=== PATIENT | female | born 1950 | race Caucasian/White ===

== ENCOUNTER → 2016-07-19 | Outpatient (CLI) | payer MEDICARE ==
--- NOTE | 2016-07-20 07:59 | MM ---
Reason for exam: additional evaluation requested from prior study. Last mammogram was performed 1 year and 1 month ago. History: Patient is postmenopausal. Family history of breast cancer in maternal aunt at age 84. Benign left US cyst aspiration of the left breast, November 25, 2006. Benign US left guided mammotome of the left breast, November 25, 2006. Benign US left guided mammotome of the left breast, November 25, 2006. Ultrasound-guided cyst aspiration of the right breast, April 26, 2000. Benign ultrasound-guided core biopsy of the right breast, April 26, 2000. Benign cyst aspiration of the right breast, March 25, 1998. Benign excisional biopsy of the right breast, March 25, 1998. Cyst aspiration of the left breast. 3 cyst aspirations of the right breast. Core biopsy of the right breast. 2 excisional biopsies of the right breast. Took hormonal contraceptives for 10 months beginning at age 17. Took estrogen for 17 years beginning at age 45. Physical Findings: Nurse did not find any significant physical abnormalities on exam. MG 3D Diag Mammo W/Cad BRENDEN Bilateral CC and MLO view(s) were taken. Prior study comparison: June 28, 2015, bilateral MG 3d screening mammo w/cad. March 08, 2014, bilateral MG diagnostic mammo w CAD BRENDEN. The breast tissue is heterogeneously dense. This may lower the sensitivity of mammography. Finding: There are typically benign round calcifications. There is no discrete abnormality. No significant changes in finding since June 28, 2015 and March 08, 2014. These results were verbally communicated with the patient and result sheet given to the patient on 07/19/16. ASSESSMENT: Benign, BI-RAD 2 RECOMMENDATION: Routine screening mammogram of both breasts in 1 year.
== END | disposition home or self-care (01) ==
LOC: RADMAMWWP 13:47
PROVIDERS: ATTEND Surgery
DX: R92.8 Other abnormal and inconclusive findings on diagnostic imaging of breast (principal)
CPT/HCPCS: 77051 ×2; G0204; G0279

== ENCOUNTER → 2016-12-04 | Outpatient (CLI) | payer MEDICARE ==
--- NOTE | 2016-12-04 13:19 | XR ---
EXAMINATION TYPE: XR sacroiliac joint comp BILAT DATE OF EXAM: 12/04/2016 1:12 PM COMPARISON: NONE HISTORY: Pain TECHNIQUE: 3 views of the SI joints were obtained bilaterally FINDINGS: Previous surgery involving the lumbosacral joint noted. Sacrum appears intact. There is sub tle sclerosis involving the right SI joint. No erosive changes. Joint space appears. Preserved. Arthr opathy of the hip joints noted. IMPRESSION: 1. Mild right sacroiliitis. 2. Bilateral hip arthropathy
--- NOTE | 2016-12-04 13:25 | XR ---
EXAMINATION TYPE: XR Hip Bilateral Complete DATE OF EXAM: 12/04/2016 1:13 PM COMPARISON: NONE HISTORY: Pain TECHNIQUE: 2 views submitted FINDINGS: There is no evidence of erosive change or acute fracture. Hypertrophic change of the acetabulum is seen bilaterally either contrast or calcifications are overs een the pubic symphysis. Correlate clinically. Soft tissue ossification adjacent to the greater trochanter of the right hip. Mild concentric narrowi ng of the joint spaces compatible with arthritic change. IMPRESSION: 1. Mild arthritic change with findings suggestive of femoral acetabular impingement. Correlate clinic ally..
--- NOTE | 2016-12-04 13:27 | XR ---
EXAMINATION TYPE: XR pelvis AP view DATE OF EXAM: 12/04/2016 1:12 PM COMPARISON: NONE HISTORY: Pain The osseous structures are intact and the joint spaces are preserved. No acute fracture is seen. Pos tsurgical change and degenerative change lower lumbar spine. 3 subtle sclerosis adjacent to the iliac portion of the right SI joint. Joint spaces appear preserved with no erosive change. Arthropathy of the shoulders noted. Either calcification or contrast seen overlying the pubic symphys is. Arthropathy of the hips noted. IMPRESSION: 1. Mild right sacroiliitis 2. Arthropathy of the hip joints.
== END | disposition home or self-care (01) ==
LOC: RADXRMAIN 12:42
PROVIDERS: ATTEND Psychiatry & Neurology Pain Medicine
DX: M16.0 Bilateral primary osteoarthritis of hip (principal); M46.1 Sacroiliitis, not elsewhere classified
CPT/HCPCS: 72170; 72202; 73521

== ENCOUNTER → 2016-12-21 | Outpatient (CLI) | payer MEDICARE ==
[2016-12-21 09:17] LABS: Blood Urea Nitrogen 13 mg/dL (7-17); Non-African American GFR(MDRD) >60 (>60 ml/min/1.73 sqM)
--- NOTE | 2016-12-21 11:47 | MR ---
MR tspine/lspine wo/w con tsp pain, lumbago MultiHance Multiplanar, multiecho imaging of the lumbar spine was obtained with and without intravenous administ ration of 17 cc of MultiHance on a 3 Viola magnet. REFERENCE:None. FINDINGS: THORACIC SPINE: Paraspinal soft tissues are normal. There is a mild levoscoliosis with its apex at the thoracolumbar junction. Vertebral body height and alignment are maintained. Cord signal is maintained. There is a tiny left paracentral protrusion at T5-6 mildly deforming the thecal sac without cord cont act. There is a diffuse disc displacement at T7-T8 deforming the thecal sac without cord contact. There is a left paracentral disc displacement at T8-9 mildly deforming the thecal sac without cord co ntact. There is a bilobed disc displacement at T9-10 deforming the thecal sac without cord contact. No other significant compressive discopathy is seen. Intervertebral foramina appear well maintained. IMPRESSION: 1. MILD, DIFFUSE DEGENERATIVE DISC DISEASE. 2. GENTLE LEVOSCOLIOSIS. 3. NO SIGNIFICANT COMPRESSIVE DISCOPATHY OR NEURAL COMPRESSION. LUMBAR SPINE: There are parapelvic cysts present bilaterally. There has been a right interpedicular fusion at L5-S1. There appears to have been a previous interped icular screw on the left at L5. This is no longer present. There is a grade 2 spondylolisthesis of L5 on S1. Alignment is otherwise maintained. Vertebral body h eight is maintained. There is a 2.8 x 5.4 cm right sided pseudomeningocele. This shows no abnormal enhancement. The conus ends normally at the level of the superior endplate of L1. At T12-L1, there are mild hypertrophic changes in the facets. At L1-2, there are mild hypertrophic changes in the facets. There is mild trefoiling of the thecal sa c. At L2-3, there is disc space loss and disc desiccation. Intervertebral foramina appear well maintaine d. There is a diffuse disc displacement. There are hypertrophic changes in the facets. There is mild trefoiling of the thecal sac. At L3-4, there is disc space loss and disc desiccation. Intervertebral foramina appear reasonably wel l-maintained. The right facet is absent. There is hypertrophic changes in the left facet. There is a mild, diffuse disc displacement. At L4-5, there is disc space loss and disc desiccation. There is an interpedicular screw present on t he right. There is no significant compressive discopathy. Intervertebral foramina. Reasonably well-ma intained. At L5-S1, there is a grade 2 spondylolisthesis of L5 on S1. There is a prominent pseudodisc. Interver tebral foramina are difficult to assess on the right. There appears to be some mild narrowing on the left. IMPRESSION: 1. POSTSURGICAL CHANGE. 2. 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 3. DIFFUSE DEGENERATIVE DISC DISEASE AND FACET ARTHROPATHY. 4. GRADE 2 SPONDYLOLISTHESIS OF L5 ON S1.
== END | disposition home or self-care (01) ==
LOC: RADMRIMAIN 09:12
PROVIDERS: ATTEND Psychiatry & Neurology Pain Medicine
DX: M51.35 Other intervertebral disc degeneration, thoracolumbar region (principal); M43.17 Spondylolisthesis, lumbosacral region; M46.86 Other specified inflammatory spondylopathies, lumbar region; M41.84 Other forms of scoliosis, thoracic region; G96.19 Other disorders of meninges, not elsewhere classified; Z98.890 Other specified postprocedural states
CPT/HCPCS: 82565; 84520; 72157; 72158; A9577

== ENCOUNTER → 2017-02-20 | Outpatient (CLI) | payer MEDICARE ==
--- NOTE | 2017-02-20 09:09 | CT ---
EXAMINATION TYPE: CT lumbar spine wo con DATE OF EXAM: 02/20/2017 COMPARISON: MR lumbar spine 12/21/2016 HISTORY: Lumbar stenosis, M41.06 CT DLP: 870.1 mGycm Automated exposure control for dose reduction was used. An unenhanced CT of the lumbar spine was performed. Bone and soft tissue window settings are submitt ed as well as coronal and sagittal reconstructions. FINDINGS: Alignment is stable, there is a dextroscoliosis as noted on prior lumbar MRI. Posterior fusion change is noted L5-S1 with unilateral screws to the right of midline, there is laminectomy change. Fluid co llection is present at the laminectomy site at the lumbosacral junction to the right of midline as no ameena on MRI. There is multilevel spondylosis, loss of disc height the intervertebral levels, associate d vacuum phenomenon also present at L3-4, L2-3. L1-L2: Facet arthropathy changes present. No significant central stenosis or foraminal encroachment. No sizable disc herniation. L2-L3: Facet arthropathy changes present. No significant foraminal encroachment or central stenosis. L3-L4: Minimal circumferential posterior disc bulge causes only slight anterior mass effect on the th ecal sac. No significant foraminal encroachment or central stenosis. Postop changes are noted in the posterior elements.. L4-L5: Loss of disc height and signal. No significant central stenosis. No significant foraminal encr oachment. Postop change noted. L5-S1: Postop changes are present. Minimal anterolisthesis grade 1 L5-S1. There may be some right-yary ed foraminal encroachment. Artifact obscures detail. IMPRESSION: Similar to lumbar MRI. Degenerative disc disease, postop changes, postop fluid collection likely repr esents seroma. Scoliosis. Foraminal encroachment suspected L5-S1 on the right. See report lumbar MRI 12/21/2016.
== END | disposition home or self-care (01) ==
LOC: RADCTMAIN 08:07
PROVIDERS: ATTEND Neurological Surgery
DX: M51.37 Other intervertebral disc degeneration, lumbosacral region (principal); M41.87 Other forms of scoliosis, lumbosacral region; Z98.890 Other specified postprocedural states
CPT/HCPCS: 72131

== ENCOUNTER → 2017-08-13 | Outpatient (CLI) | payer MEDICARE ==
--- NOTE | 2017-08-13 15:46 | MR ---
EXAMINATION TYPE: MR cervical spine wo con DATE OF EXAM: 08/13/2017 COMPARISON: NONE HISTORY: Cervicalgia, gray TECHNIQUE: Multiplanar, multisequence images of the cervical spine were acquired. FINDINGS: Vertebral bodies of the cervical spine maintains normal vertebral body height and alignment . Bone marrow signal is within normal limits other than small T2/T1 hyperintense vertebral body heman giomas of the lower cervical spine and upper thoracic spine. Cervical cord is of unremarkable signal. C2-C3: There is disc desiccation without evidence of spinal canal stenosis or neural foraminal narrow ing. No focal herniation. C3-C4: Small central posterior disc osteophyte complex is seen without significant spinal canal steno sis. No neural foraminal narrowing. C4-C5: Left eccentric disc bulge create mild left neural foraminal narrowing and mild spinal canal st enosis narrowing the ventral subarachnoid space. Right neuroforamen is patent. C5-C6: Similarly to C4-C5 a left eccentric disc bulge create mild left neural foraminal narrowing and mild spinal canal stenosis narrowing the ventral subarachnoid space. Right neuroforamen is patent. C6-C7: Small central disc herniation is seen narrowing the ventral subarachnoid space and creating mi ld spinal canal stenosis. Uncovertebral hypertrophy creates moderate left neural foraminal narrowing. Right neuroforamen is patent. C7-T1: No evidence for degenerative disc disease. No disc bulge/herniation or protrusion. No Canal stenosis. Foramina are patent bilaterally. IMPRESSION: 1. Small central disc herniation at C6-C7 resulting in mild spinal canal stenosis. Uncovertebral hype rtrophy on the left at this level creates moderate left neural foraminal narrowing. 2. Moderate multilevel degenerative disc disease resulting in mild spinal canal stenosis at C4-C5, C5 -C6, and C6-C7 as described above. 3. No evidence of cervical spine vertebral body height loss or malalignment.
== END | disposition home or self-care (01) ==
LOC: RADMRIMAIN 13:03
PROVIDERS: ATTEND Psychiatry & Neurology Neurology
DX: M50.223 Other cervical disc displacement at C6-C7 level (principal); M48.02 Spinal stenosis, cervical region
CPT/HCPCS: 72141

== ENCOUNTER → 2017-09-04 | Outpatient (CLI) | payer MEDICARE ==
--- NOTE | 2017-09-04 14:02 | MM ---
Reason for exam: additional evaluation requested from prior study. Last mammogram was performed 1 year and 2 months ago. History: Patient is postmenopausal. Family history of breast cancer in maternal aunt at age 84. Benign left US cyst aspiration of the left breast, November 25, 2006. Benign US left guided mammotome of the left breast, November 25, 2006. Benign US left guided mammotome of the left breast, November 25, 2006. Ultrasound-guided cyst aspiration of the right breast, April 26, 2000. Benign ultrasound-guided core biopsy of the right breast, April 26, 2000. Benign cyst aspiration of the right breast, March 25, 1998. Benign excisional biopsy of the right breast, March 25, 1998. Cyst aspiration of the left breast. 3 cyst aspirations of the right breast. Core biopsy of the right breast. 2 excisional biopsies of the right breast. Took hormonal contraceptives for 10 months beginning at age 17. Took estrogen for 17 years beginning at age 45. Physical Findings: Nurse did not find any significant physical abnormalities on exam. MG 3D Diag Mammo W/Cad BRENDEN Bilateral CC and MLO view(s) were taken. Prior study comparison: July 19, 2016, bilateral MG 3d diag mammo w/cad BRENDEN. June 28, 2015, bilateral MG 3d screening mammo w/cad. The breast tissue is heterogeneously dense. This may lower the sensitivity of mammography. Previous mammotome biopsy in the left breast x 2. There is chronic nodularity in the left breast. These results were verbally communicated with the patient and result sheet given to the patient on 09/04/17. ASSESSMENT: Benign, BI-RAD 2 RECOMMENDATION: Routine screening mammogram of both breasts in 1 year.
== END | disposition home or self-care (01) ==
LOC: RADMAMWWP 12:53
PROVIDERS: ATTEND Surgery
DX: R92.8 Other abnormal and inconclusive findings on diagnostic imaging of breast (principal)
CPT/HCPCS: 77066; G0279

== ENCOUNTER → 2018-05-01 | Outpatient (CLI) | payer MEDICARE ==
--- NOTE | 2018-05-01 14:44 | XR ---
EXAMINATION TYPE: XR chest 2V DATE OF EXAM: 05/01/2018 COMPARISON: NONE TECHNIQUE: PA and lateral views submitted. HISTORY: brow ptosis FINDINGS: The lungs are clear and there is no pneumothorax, pleural effusion, or focal pneumonia. Postsurgica l change right shoulder. Arthropathy AC joints bilaterally. Atherosclerotic change aorta. No overt fa ilure. IMPRESSION: 1. No acute process.
== END | disposition home or self-care (01) ==
LOC: RADXRMAIN 14:04
PROVIDERS: ATTEND Internal Medicine Geriatric Medicine
DX: H57.819 Brow ptosis, unspecified (principal)
CPT/HCPCS: 71046

== ENCOUNTER → 2018-09-16 | Outpatient (CLI) | payer MEDICARE | LOC: LABWHC1 14:31 | PROVIDERS: ATTEND Nurse Practitioner Adult Health | DX: R00.2 Palpitations (principal) | CPT/HCPCS: 36415; 84443; 84481 ==

== ENCOUNTER 2018-11-20 07:59 | Day surgery (SDC) | payer MEDICARE ==
[2018-11-19 09:17] VITALS: BMI 29.2
[~2018-11-20 07:59] MED LIST: SODIUM CHLORIDE 0.9% 1,000 ML IV SCH; ceFAZolin IN SWFI 2 GM/20 ML SYRINGE IVP ONE
[2018-11-20 08:26] VITALS: TEMP 97.9
[2018-11-20] MEDS ORDERED: LIDOCAINE 1% INJ 10MG/ML (20 ML MDV) ONE (09:22)
[2018-11-20] MEDS ORDERED: MIDAZOLAM (PF) 2 MG/2 ML VIAL IVP ONE (09:32)
[2018-11-20] MEDS ORDERED: LIDOCAINE 1% INJ 10MG/ML (20 ML MDV) SQ ONE (09:36)
--- NOTE | 2018-11-20 09:51 | P.PCN ---
Preoperative Diagnosis: Loop monitor implant Primary physicians: Dr. Cheung Network Engineer: Dr. Sepulveda Indication: Recurrent palpitations Patient was brought to the EP lab in a fasting state. Written informed consent was obtained prior to the procedure. The left pectoral area was prepped and draped per protocol. Intravenous antibiotic was administered preoperatively. A subcutaneous Loop monitor was implanted successfully and the wound was closed per protocol. The device was programmed to detect significant jeanne- arrhythmic and tachy-arrhythmic events, per protocol. Device and programming details: Antionette fib diagnosis and management Patient underwent EP procedure under conscious sedation/moderate sedation, monitoring of the level of consciousness and physiologic parameters including but not limited to vital signs and oxygenation. Patient tolerated the procedure well without any acute complications. Start time: 0935 Stop time: 944 Condition: stable
--- NOTE | 2018-11-20 09:52 | P.PRLE ---
RE: Na Byers Dear Dr. kelley Mrs. Byers underwent implantation of a loop monitor for evaluation of her palpitations and and management of atrial fibrillation Her medications at this time remain unchanged and she will continue to follow with you and Dr. Sepulveda as before and will see me on a when necessary basis if she has any sustained arrhythmias Thank you for entrusting me with the care of the patient Warm regards Sincerely Tomás Miles
[2018-11-20 10:11] VITALS: BP 150/79; PULSE 64; RESP 18
== END 2018-11-20 10:49 | disposition home or self-care (01) ==
LOC: CATHEP 07:59
PROVIDERS: ATTEND Internal Medicine Clinical Cardiac Electrophysiology
DX: I48.91 Unspecified atrial fibrillation (principal); I10 Essential (primary) hypertension; Z79.82 Long term (current) use of aspirin; Z79.890 Hormone replacement therapy; Z79.899 Other long term (current) drug therapy; Z88.5 Allergy status to narcotic agent; Z88.8 Allergy status to other drugs, medicaments and biological substances; Z91.041 Radiographic dye allergy status
CPT/HCPCS: 33285; C1764; J2001; J0690; J2250

== ENCOUNTER → 2018-12-25 | Outpatient (CLI) | payer MEDICARE ==
--- NOTE | 2018-12-25 17:46 | CONS ---
CONSULTATION DATE OF SERVICE: 12/25/2018 This patient is a 68-year-old lady who has been evaluated in Sleep Center for possible obstructive sleep apnea-hypopnea syndrome. HISTORY OF PRESENT ILLNESS/SLEEP-WAKE EVALUATION: Patient's usual sleep schedule is from around 9 p.m. until 5 or 6 a.m. Usually no problems with falling asleep, although she reads in the bedroom. She sleeps usually on the right side with loud snoring and episodes of palpitations during sleep. She may wake up once with nocturia. No history of hypnagogic hallucinations, sleep paralysis or cataplexy. She may take a nap any time, and usually does not feel refreshed after a nap. Does not see dreams during naps. [place] Sleepiness Scale is significantly increased at 17, including sleepiness while driving the car and being stopped at traffic lights. PAST MEDICAL HISTORY: Past medical history is positive for: 1. Atrial fibrillation for many years. 2. Hypothyroidism. 3. Back problems. 4. Hypertension. 5. Acid reflux. 6. Depression. 7. Right shoulder problems. 8. Mitral valve prolapse. PAST SURGICAL HISTORY: 1. Back surgery at L4 level. 2. Several cardioversions in the past for atrial fibrillation. 3. Partial hysterectomy. 4. Five surgeries on the right shoulder. 5. Right shoulder implant. MEDICATIONS: 1. Toprol-XL. 2. Baby aspirin. 3. Nexium. 4. Vitamins. 5. Zantac. 6. Elavil. 7. OxyContin. 8. Xanax. SOCIAL HISTORY: Negative for smoking or using alcohol at the present time. FAMILY HISTORY: Hypertension, angina, heart problems, arthritis, sinus problems, snoring, tuberculosis, pneumoniae, headaches, cancer, thyroid problems. REVIEW OF SYSTEMS: Awakenings from sleep, sleepiness during the day, palpitations. PHYSICAL EXAMINATION: GENERAL: A pleasant lady without distress. VITAL SIGNS: BP 131/57, HR 70, RR 16, height 5 feet 4 inches, weight 178 pounds. Body mass index 30.5, temperature 97.6, oxygen saturation at room air 98%. HEENT: PERRLA, EOMI. Evaluation of oropharynx showed tongue protrudes midline. Extremely low position of soft palate. Mallampati IV. Nose slightly asymmetric. Some restriction of nasal breathing. Retrognathia of 3 mm. NECK: Supple. No JVD. Thyroid is not palpable. LUNGS: Clear to percussion and to auscultation. Good air exchange. No wheezing or rhonchi. HEART: Irregular heart tones. ABDOMEN: Slightly obese. EXTREMITIES: No clubbing or cyanosis. MARINE ENGINEER CPVEC: Awake, alert, and oriented X3. Cranial nerves 2 to 7 intact. There is no fasciculation or atrophy. noted. No focal deficits observed. IMPRESSION: 1. Snoring, witnessed episodes of stopped breathing, extremely low position of soft palate, Mallampati IV, significant excessive daytime sleepiness, Palmer sleepiness scale 17; retrognathia 3 mm; obstructive sleep apnea/hypopnea syndrome. 2. Hypertension. 3. Atrial fibrillation. 4. History of mitral valve prolapse. 5. Hypothyroidism, on thyroid supplement. 6. History of depression. 7. Acid reflux. 8. History of right shoulder problems, status post multiple surgeries. 9. History of back problems, status post surgery in the level of L4. 10.History of panic attacks. PLAN: 1. Polysomnography for evaluation of patient's breathing during sleep. 2. CPAP/BiPAP titration if sleep study confirms obstructive sleep apnea-hypopnea syndrome. 3. Preferable position during sleep on the side. 4. No driving if patient feels any sleepiness. 5. I will see patient for follow up visit to explain results of testing and following plan. Thank you very much for referring this patient for consultation. Sincerely, Booker Alvarenga MD, PhD, FAASM Diplomat of [employer] [employer] [employer] Program Manufacturing Leader of [facility] [place] MMODL / MILYN: [id number] /
== END | disposition home or self-care (01) ==
LOC: SLEEP 15:11
PROVIDERS: ATTEND Internal Medicine
DX: G47.33 Obstructive sleep apnea (adult) (pediatric) (principal); I10 Essential (primary) hypertension; I48.91 Unspecified atrial fibrillation; E03.9 Hypothyroidism, unspecified; K21.9 Gastro-esophageal reflux disease without esophagitis; Z86.79 Personal history of other diseases of the circulatory system; Z86.59 Personal history of other mental and behavioral disorders; Z87.39 Personal history of other diseases of the musculoskeletal system and connective tissue; Z98.890 Other specified postprocedural states; Z79.82 Long term (current) use of aspirin; Z79.899 Other long term (current) drug therapy
CPT/HCPCS: 99211

== ENCOUNTER → 2019-04-16 | Outpatient (CLI) | payer MEDICARE ==
--- NOTE | 2019-04-16 14:13 | PN ---
PROGRESS NOTE DATE OF SERVICE: 04/16/2019 A 68-year-old lady who has been followed in the Sleep Center for treatment of obstructive sleep apnea-hypopnea syndrome. Recently patient had a polysomnogram which showed severe sleep apnea. Subsequently, patient had CPAP titration and was started on treatment with CPAP. Today is her first visit after she was started on treatment with CPAP. The patient has difficulties to use CPAP equipment secondary to mask fitting and possibly pressure. [place] Sleepiness Scale today is 19. MEDICATIONS: Toprol, Nexium, Zantac, Elavil, OxyContin, Xanax. I checked the patient's CPAP unit, CPAP pressure is 10 cm of water, usage 5 nights out of 73 nights and 3 nights for more than 4 hours with average usage 4.6 hours. Leak is 19 L/minute, which is very high apnea-hypopnea index only 3.0, which is absolutely normal. PHYSICAL EXAM: Patient in no distress. BP 146/67, HR 74, RR 16, weight 173.6, temperature 97.3, oxygen saturation at room air 98% on room air is oropharynx low position of soft palate. Mallampati 4 abdomen slightly obese heart S1, and to auscultation. IMPRESSION: 1. Severe obstructive sleep apnea-hypopnea syndrome. Presently, patient has difficulties with the usage of CPAP, reading from CPAP when she used the machine showed normalization of her respiration. 2. Atrial fibrillation. 3. Acid reflux. 4. Hypertension. 5. Hypothyroidism. 6. History of depression. 7. History of mitral valve prolapse. 8. History of panic attacks. PLAN: 1. We will try to feed the patient with possibly different type of mask. 2. Patient should continue to use CPAP equipment every night for the whole night. 3. Sleep hygiene with regular time in bed for at least 7=1/2hours. 4. No driving if feeling sleepiness. Thank you very much for allowing me to participate in the management of your patient. Sincerely, Booker Alvarenga MD, PhD, FAASM Diplomat of [employer] Hydraulic Press Operator of [facility] [place] MMODL / MILYN: [id number] /
== END | disposition home or self-care (01) ==
LOC: SLEEP 13:09
PROVIDERS: ATTEND Internal Medicine
DX: G47.33 Obstructive sleep apnea (adult) (pediatric) (principal); I48.91 Unspecified atrial fibrillation; I10 Essential (primary) hypertension; E03.9 Hypothyroidism, unspecified; K21.9 Gastro-esophageal reflux disease without esophagitis; Z86.59 Personal history of other mental and behavioral disorders; Z86.79 Personal history of other diseases of the circulatory system; Z79.891 Long term (current) use of opiate analgesic; Z79.899 Other long term (current) drug therapy

== ENCOUNTER → 2019-05-14 | Outpatient (CLI) | payer MEDICARE ==
--- NOTE | 2019-05-14 20:48 | PN ---
PROGRESS NOTE DATE OF SERVICE: 05/14/2019 This patient is a 68-year-old lady who has been followed in Sleep Center for treatment of obstructive sleep apnea-hypopnea syndrome. At present the patient is using her CPAP equipment practically every night, and she feels better with the machine. She sleeps better and feels better during the day. [place] Sleepiness Scale today, though, is still increased at 17. She still continues to feel some sleepiness during the day. I checked her CPAP unit. CPAP pressure is 10 cm of water, RAMP 30 minutes. Usage for the last month, according to the machine, is / nights, and night for more than 4 hours. Average usage is 6.3 hours. Leak is high, 62 L/minute. At the same time, apnea-hypopnea index is totally normal, only 1.0. MEDICATIONS: 1. Toprol. 2. Nexium. 3. Zantac. 4. Elavil. 5. OxyContin. 6. Xanax. PHYSICAL EXAMINATION: GENERAL: A pleasant patient in no distress. VITAL SIGNS: BP 148/83, HR 64, RR 14, weight 177.6, temperature 97.3, oxygen saturation at room air 97%. HEENT: PERRLA, EOMI. Evaluation of oropharynx showed tongue protrudes midline. Extremely low position of soft palate. Mallampati IV. NECK: Supple. No JVD. Thyroid is not palpable. LUNGS: Clear to percussion and to auscultation. Good air exchange. No wheezing or rhonchi. HEART: S1, S2 regular. No murmurs, gallops or rubs. ABDOMEN: Slightly obese. EXTREMITIES: No clubbing or cyanosis. WIRE INSPECTOR: Awake, alert, and oriented X3. Cranial nerves 2 to 7 intact. There is no fasciculation or atrophy. noted. No focal deficits observed. IMPRESSION: 1. Severe obstructive sleep apnea-hypopnea syndrome with apnea-hypopnea index 32.2 and oxygen desaturation to 68.2%. At present the patient has demonstrated borderline compliance with treatment, full normalization of her respiration on CPAP, benefitting from treatment. 2. History of atrial fibrillation. 3. Acid reflux. 4. Hypertension. 5. Hypothyroidism. 6. History of depression. 7. History of mitral valve prolapse. 8. History of panic attacks. PLAN: 1. Patient will continue to use her CPAP equipment every night for the whole night. She will continue to use DreamWear nasal mask. 2. Prescription for additional chinstrap. Possibly patient opens her mouth, which could be the reason for the significant leak. 3. Watching and losing weight. 4. No driving if feeling any sleepiness. Thank you very much for allowing me to participate in the management of your patient. Sincerely, Booker Alvarenga MD, PhD, FAASM Diplomat of [employer] [employer] [employer] Sap [employer] Developer of [facility] [place] MMODL / IJN: [id number] /
== END | disposition home or self-care (01) ==
LOC: SLEEP 16:20
PROVIDERS: ATTEND Internal Medicine
DX: G47.33 Obstructive sleep apnea (adult) (pediatric) (principal); K21.9 Gastro-esophageal reflux disease without esophagitis; I10 Essential (primary) hypertension; E03.9 Hypothyroidism, unspecified; Z86.59 Personal history of other mental and behavioral disorders; Z86.79 Personal history of other diseases of the circulatory system; Z79.899 Other long term (current) drug therapy

== ENCOUNTER → 2019-06-18 | Outpatient (CLI) | payer MEDICARE ==
--- NOTE | 2019-06-18 21:51 | PN ---
PROGRESS NOTE DATE OF SERVICE: 06/18/2019 69-year-old lady who has [facility] for treatment of obstructive sleep apnea-hypopnea syndrome. The patient continued to use her CPAP equipment every night for the whole night. Presently no significant problem with the usage of her machine. She is getting her supplies well. No problems with the pressure or humidification. Tanana Sleepiness Scale today is although still increased to 17. I checked CPAP unit, CPAP pressure is 10 cm of water. Usage is 25/30 nights and 23 out of 30 nights for more than 4 hours, with average usage is 6.6 hours per night. Leak is significant 73 L/minute, but at the same time, apnea-hypopnea index only 0.3. MEDICATIONS: Toprol, Nexium, Zantac, Elavil, OxyContin, Xanax. PHYSICAL EXAM: Patient in no distress. VITAL SIGNS: BP 125/57, HR 54, RR 12, height 5 feet 4 inches, weight 178.8 pounds, temperature 97.7, oxygen saturation at room air 97%. Oropharynx extremely low position of soft palate. Mallampati 4. NECK: Supple, no JVD. Thyroid is not palpable. LUNGS: Clear to percussion and to auscultation. Good air exchange. No wheezing or rhonchi. HEART: S1, S2 regular. No murmurs, gallops, or rubs. ABDOMEN: Obese. Soft and nontender. Bowel sounds are present. No organomegaly appreciated. EXTREMITIES: No clubbing or cyanosis. RIPSAWYER: Awake, alert, and oriented X3. Cranial nerves 2 to 7 intact. There is no fasciculation or atrophy. noted. No focal deficits observed. IMPRESSION: 1. Severe obstructive sleep apnea-hypopnea syndrome apnea-hypopnea index 32.2 with oxygen desaturation to 68.2%, on full control with CPAP. The patient demonstrated good compliance with treatment benefitting from treatment. 2. History of atrial fibrillation. 3. Acid reflux. 4. Hypertension. 5. Asthma. 6. Hypothyroidism. 7. History of depression. 8. History of mitral valve prolapse. 9. History of panic attacks. PLAN: 1. Patient will continue to use her CPAP equipment every night for the whole night. 2. Watching and losing weight. 3. Sleep hygiene with regular time in bed for at least 7-1/2 to 8 hours. 4. No driving if feeling sleepiness. 5. I will maintain all necessary prescriptions for CPAP supplies including chinstrap. 6. No driving if feeling sleepiness. Thank you very much for allowing me to participate in management of this patient. Sincerely, Booker Alvarenga MD, PhD, FAASM Diplomat of [employer] [facility] [place] MMODL / MILYN: [id number] /
== END | disposition home or self-care (01) ==
LOC: SLEEP 15:59
PROVIDERS: ATTEND Internal Medicine
DX: G47.33 Obstructive sleep apnea (adult) (pediatric) (principal); K21.9 Gastro-esophageal reflux disease without esophagitis; I10 Essential (primary) hypertension; J45.909 Unspecified asthma, uncomplicated; E03.9 Hypothyroidism, unspecified; Z86.59 Personal history of other mental and behavioral disorders; Z86.79 Personal history of other diseases of the circulatory system; Z99.89 Dependence on other enabling machines and devices; Z79.899 Other long term (current) drug therapy

== ENCOUNTER 2019-08-05 08:02 | Day surgery (SDC) | payer MEDICARE ==
[2019-08-03 11:55] VITALS: BMI 29.1
[~2019-08-05 08:02] MED LIST changes: +LACTATED RINGERS 1,000 ML IV SCH; +LIDOCAINE 1% 20 ML VIAL (10MG/ML) FOR IV START INTRADERMA PRN; +MOXIFLOXACIN HCL 0.5% DROPS 3 ML BTL OP ONE; -SODIUM CHLORIDE 0.9% 1,000 ML IV SCH; +TETRACAINE 0.5% OPHTH (PF) DROPS 4 ML BTL OP ONE; +TIMOLOL 0.5% OPHTH DROPS 5 ML BTL OP ONE; -ceFAZolin IN SWFI 2 GM/20 ML SYRINGE IVP ONE
[2019-08-05 08:33] VITALS: RESP 16; TEMP 96.5
[2019-08-05] MEDS: PHENYLEPHRINE 2.5% OPHTH DRP 2ML OP NR ×4 (08:43→09:07)
[2019-08-05] MEDS: CYCLOPENTOLATE 1% OPHTH SOLN 2 ML BTL OP ONE ×3 (08:43→09:02)
[2019-08-05] MEDS ORDERED: LIDOCAINE 1% 20 ML VIAL (10MG/ML) FOR IV START INTRADERMA ONE (09:00)
[2019-08-05] MEDS: LACTATED RINGERS 1,000 ML IV ONE ×2 (09:00→09:32)
[2019-08-05] MEDS ORDERED: HYDROmorphone 0.5 MG/0.5 ML SYRINGE IVP ONE (09:15)
[2019-08-05] MEDS ORDERED: ONDANSETRON 4 MG/2 ML VIAL IVP ONE (09:16)
[2019-08-05] MEDS ORDERED: fentaNYL (PF) 50 MCG/ML 2 ML AMP ONE (09:32)
[2019-08-05] MEDS ORDERED: MIDAZOLAM 2 MG/2 ML VIAL ONE (09:32)
[2019-08-05] MEDS ORDERED: HYALURONATE SODIUM INTRAOCULAR 1 EACH SYRINGE (12MG/ML) INTRAOCULA ONE (09:37)
[2019-08-05] MEDS ORDERED: LIDOCAINE 1% (PF) 10MG/ML VIAL SQ ONE (09:38)
[2019-08-05] MEDS ORDERED: BALANCED SALT IRRIG SOLN COMB2 15 ML IRRIG.SOLN IRRIGATION ONE (09:38)
[2019-08-05] MEDS ORDERED: EPINEPHrine (PF) 0.3 ML in BALANCED SALT IRRIG SOLN COMB2 500 ML IRRIGATION ONE (09:39)
--- NOTE | 2019-08-05 09:57 | P.OP ---
Date of Procedure: 08/05/19 Preoperative Diagnosis: NS & CS Postoperative Diagnosis: same Procedure(s) Performed: PIOL, OS Implants: MX60E 21.00 Anesthesia: MAC Surgeon: Austin Luciano Pathology: none sent Condition: stable Disposition: same day Indications for Procedure: blurry vision Operative Findings: no complications
[2019-08-05 10:16] VITALS: BP 112/57; PULSE 60
--- NOTE | 2019-08-05 21:54 | OP ---
OPERATIVE REPORT DATE OF SURGERY: August 05, 2019. PROCEDURE PERFORMED: Phacoemulsification of cataract and intraocular lens implant of the left eye. ACCOUNT GENERAL MANAGER: PREOPERATIVE DIAGNOSIS: Nuclear sclerosis. Cortical sclerosis. POSTOPERATIVE DIAGNOSIS: Nuclear sclerosis. Cortical sclerosis. OPERATION: Clear cornea phacoemulsification of cataract left OS eye. ESTIMATED BLOOD LOSS: Zero. SPECIMEN TAKEN: None. NARRATIVE: After obtaining the appropriate consent, the patient was brought to the Operating Room where the patient was placed under cardiac monitoring and prepped and draped in the usual sterile manner. At the 5 o'clock position a 15 degree super sharp blade was used to create a paracentesis followed by instillation of 1% Xylocaine MPF 50:50 mix with BSS into the anterior chamber. This was followed by Amvisc to stabilize the anterior chamber. At the 3 o'clock position. A self-sealing corneal flap incision was created using 2.8 mm emilee keratome. A cystotome was used to initiate a continuous tear capsulorrhexis which was completed with the Utrata forceps. A Binkhorst cannula was used to hydrodissect the lens nucleus followed by hydrodelineation. Phacoemulsification of the lens was performed utilizing phacochop in 8.3 seconds at 14% power. The remaining cortical material was removed using the irrigation aspiration mode followed by additional 1% Xylocaine MPF into the anterior chamber followed by viscoelastic to stabilize the capsular bag. A [employer]ch [employer] Lomb MX 60 E 21.0 diopter posterior chamber lens was placed into the capsular bag without difficulty. The remaining viscoelastic material was removed from the anterior chamber with the irrigation/aspiration. Balanced salt solution was used to normalize the intraocular pressure. The incision was checked for watertight integrity. The patient then received two drops of 0.5% timolol followed by two drops Vigamox, was lightly patched and shielded in the usual manner. There were no complications from the procedure. The patient tolerated the procedure well and was returned to recovery in good condition. MMODL / IJN: [id number] /
== END 2019-08-05 10:31 | disposition home or self-care (01) ==
LOC: OR 08:02
PROVIDERS: ATTEND Ophthalmology
DX: H25.12 Age-related nuclear cataract, left eye (principal); H35.3211 Exudative age-related macular degeneration, right eye, with active choroidal neovascularization; H35.3122 Nonexudative age-related macular degeneration, left eye, intermediate dry stage; H00.023 Hordeolum internum right eye, unspecified eyelid; H35.30 Unspecified macular degeneration; H04.129 Dry eye syndrome of unspecified lacrimal gland; H52.13 Myopia, bilateral; H52.4 Presbyopia; I48.91 Unspecified atrial fibrillation; I34.1 Nonrheumatic mitral (valve) prolapse; G47.33 Obstructive sleep apnea (adult) (pediatric); E78.5 Hyperlipidemia, unspecified; M19.90 Unspecified osteoarthritis, unspecified site; G43.909 Migraine, unspecified, not intractable, without status migrainosus; F41.9 Anxiety disorder, unspecified; K21.9 Gastro-esophageal reflux disease without esophagitis; E07.9 Disorder of thyroid, unspecified; I11.9 Hypertensive heart disease without heart failure; Z88.8 Allergy status to other drugs, medicaments and biological substances; Z88.5 Allergy status to narcotic agent; Z91.013 Allergy to seafood; Z99.89 Dependence on other enabling machines and devices; Z79.82 Long term (current) use of aspirin; Z79.899 Other long term (current) drug therapy; Z79.890 Hormone replacement therapy; Z91.041 Radiographic dye allergy status; Z90.710 Acquired absence of both cervix and uterus; Z98.890 Other specified postprocedural states; Z83.518 Family history of other specified eye disorder; Z82.61 Family history of arthritis; Z82.49 Family history of ischemic heart disease and other diseases of the circulatory system
CPT/HCPCS: 66984; V2632; J2250; J2405; J0171; J3010; J2001; J1170

== ENCOUNTER 2019-08-25 18:50 | Emergency (ER) | payer MEDICARE ==
[2019-08-25 21:41] VITALS: TEMP 97.4
--- NOTE | 2019-08-25 21:47 | CT ---
EXAMINATION TYPE: CT brain stormy wo con DATE OF EXAM: 08/25/2019 COMPARISON: None HISTORY: fall CT DLP: 1322.7 mGycm Automated exposure control for dose reduction was used. Multiple axial sections were obtained of the brain without contrast. Multiple axial sections were obt ained from the skull base to T1 vertebra without contrast. FINDINGS: Ventricles have normal size. There is no mass effect nor midline shift. There is no sign of intracran ial hemorrhage. There is cerebral atrophy. Calvarium is intact. Cervical vertebra show normal alignment. There is no compression fracture. Posterior elements are int act. There is multilevel facet arthropathy. Skull base is intact. IMPRESSION: Mild spondylotic changes in the cervical spine. No fracture. Mild cerebral atrophy. No acute intracranial abnormality.
--- NOTE | 2019-08-25 22:02 | ED ---
Headache HPI - General Chief Complaint: Headache Stated Complaint: fall/head injury Time Seen by Provider: 08/25/19 21:09 Mode of arrival: ambulatory Limitations: no limitations - History of Present Illness Initial Comments: This patient is 69-year-old woman who presents to be evaluated for head and neck pain that came on after she had a fall yesterday. The patient states she had been on a small stool when she slipped and fell. The patient states that she did go backwards striking her head. She also struck the left side of her foot. The patient is concerned because she is having persisting pain. MD Complaint: headache Onset/Timin -: days(s) Onset Description: sudden Location: occipital Severity: moderate Quality: aching Consistency: constant Improves With: nothing Worsens With: movement of head/neck Context: other - Related Data Home Medications Medication Instructions Recorded Confirmed ALPRAZolam [Xanax] 0.25 mg PO TID PRN 06/02/14 08/25/19 Amitriptyline HCl [Elavil] 10 mg PO HS 06/02/14 08/25/19 oxyCODONE-APAP 5-325MG [Percocet 1 tab PO QID PRN 06/02/14 08/25/19 5-325 mg] Aspirin [Adult Low Dose Aspirin EC] 81 mg PO DAILY 11/19/18 08/25/19 Vit C/E/Zn/Coppr/Lutein/Zeaxan 1 tab PO DAILY 11/19/18 08/25/19 [Preservision Areds 2 Softgel] Famotidine [Pepcid] 20 mg PO DAILY 08/03/19 08/25/19 ALPRAZolam [Xanax] 0.5 mg PO HS PRN 08/25/19 08/25/19 Bromfenac Sodium [Prolensa Ophth 1 drop BOTH EYES DAILY 08/25/19 08/25/19 Soln] Levothyroxine Sodium [Synthroid] 37.5 mcg PO DAILY 08/25/19 08/25/19 Metoprolol Succinate [Toprol XL] 50 mg PO BID 08/25/19 08/25/19 Moxifloxacin 0.5% Eye Drops 1 drop BOTH EYES DAILY 08/25/19 08/25/19 Omeprazole 20 mg PO DAILY 08/25/19 08/25/19 Sennosides [Senokot] 8.6 mg PO DAILY PRN 08/25/19 08/25/19 prednisoLONE ACETATE 1% OPHTH 1 drops BOTH EYES DAILY 08/25/19 08/25/19 [Pred Forte 1%] Allergies Allergy/AdvReac Type Severity Reaction Status Date / Time Iodine and Iodide Containing Allergy Severe Rash/Hives, Verified 08/25/19 19:19 Produc Dyspnea, elevated blood pressure cobalt Allergy Unknown allergy Verified 08/25/19 19:19 testing positive nickel Allergy Unknown Allergy Verified 08/25/19 19:19 testing positive shellfish derived [Shellfish] Allergy Unknown Rash, Verified 08/25/19 19:19 dyspnea, elevated bloodpressure codeine AdvReac Nausea & Verified 08/25/19 19:19 Vomiting morphine AdvReac VOMITING(SE Verified 08/25/19 19:19 JESI) regadenoson [From Lexiscan] AdvReac Rash/Hives. Verified 08/25/19 19:19 Review of Systems ROS Statement: Those systems with pertinent positive or pertinent negative responses have been documented in the HPI. ROS Other: All systems not noted in ROS Statement are negative. Constitutional: Denies: fever, chills Eyes: Denies: eye pain, vision change Respiratory: Denies: cough, dyspnea Cardiovascular: Denies: chest pain, palpitations, edema Gastrointestinal: Denies: abdominal pain, vomiting, diarrhea Genitourinary: Denies: dysuria, hematuria Musculoskeletal: Reports: as per HPI, arthralgia (Left foot). Denies: back pain Skin: Denies: rash Neurological: Reports: headache. Denies: weakness, numbness, paresthesias, confusion Hematological/Lymphatic: Denies: easy bleeding Past Medical History Past Medical History: Atrial Fibrillation, GERD/Reflux, Hyperlipidemia, Hypertension, Mitral Valve Prolapse (MVP), Osteoarthritis (OA), Sleep A pnea/CPAP/BIPAP, Thyroid Disorder Additional Past Medical History / Comment(s): DDD, STENOSIS & CURVATURE OF SPINE., MIGRAINE HEADACHES, MACULAR DEGENERATION, CHRONIC CONSTIPATION., BLADDER LEAKAGE., C PAP MACHINE, cataracts History of Any Multi-Drug Resistant Organisms: None Reported Past Surgical History: Back Surgery, Hysterectomy, Orthopedic Surgery, Tonsillectomy Additional Past Surgical History / Comment(s): RIGHT SHOULDER SURGERY X5 WITH ROTATOR CUFF REPAIR AND REVERSE SHOULDER WITH RODS., MULTIPLE BACK SURGERIES WITH CAGE & PLATE. , LEFT KNEE ARTHROSCOPIC, RIGHT CARPAL TUNNEL RELEASE., INJECTIONS FOR BLADDER LEAKAGE. left eye cataract removal, Past Anesthesia/Blood Transfusion Reactions: Motion Sickness, Postoperative Nausea & Vomiting (PONV) Past Psychological History: Anxiety Smoking Status: Never smoker Past Alcohol Use History: None Reported Past Drug Use History: None Reported - Past Family History Mother Family Medical History: No Reported History Brother(s) Family Medical History: Deep Vein Thrombosis (DVT), Rheumatoid Arthritis (RA) General Exam Limitations: no limitations General appearance: alert, in no apparent distress Head exam: Present: normocephalic, other (Small contusion with tenderness left occipital. No bony deformity) Eye exam: Present: normal appearance, PERRL, EOMI. Absent: scleral icterus, conjunctival injection ENT exam: Present: normal oropharynx Neck exam: Present: normal inspection, full ROM. Absent: tenderness, meningismus Respiratory exam: Present: normal lung sounds bilaterally. Absent: respiratory distress, wheezes, rales, rhonchi, stridor Cardiovascular Exam: Present: regular rate, normal rhythm, normal heart sounds. Absent: systolic murmur, diastolic murmur, rubs, gallop GI/Abdominal exam: Present: soft. Absent: distended, tenderness, guarding, rebound Extremities exam: Present: normal inspection, tenderness (Lateral aspect left foot), normal capillary refill. Absent: pedal edema, calf tenderness Back exam: Present: normal inspection. Absent: CVA tenderness (R), CVA tenderness (L), vertebral tenderness Neurological exam: Present: alert, oriented X3, CN II-XII intact. Absent: motor sensory deficit Skin exam: Present: warm, dry, intact, normal color. Absent: rash Course Vital Signs 08/25/19 08/25/19 08/25/19 19:14 21:37 22:00 Temperature 97.8 F 97.4 F L 97.4 F L Pulse Rate 74 74 67 Respiratory 18 18 20 Rate Blood Pressure 180/86 178/94 179/91 O2 Sat by Pulse 99 98 98 Oximetry 08/25/19 23:14 Temperature 97.4 F L Pulse Rate 67 Respiratory 20 Rate Blood Pressure 187/94 O2 Sat by Pulse 98 Oximetry Disposition Clinical Impression: Head injury, Contusion of foot, left Disposition: HOME SELF-CARE Condition: Good Instructions (If sedation given, give patient instructions): Head Injury (ED), Foot Contusion (ED) Is patient prescribed a controlled substance at d/c from ED?: No Referrals: Uzair Cheung DO [Primary Care Provider] - 1-2 days
--- NOTE | 2019-08-25 22:21 | XR ---
EXAMINATION TYPE: XR foot complete LT DATE OF EXAM: 08/25/2019 COMPARISON: NONE HISTORY: Fall. Foot pain. TECHNIQUE: 3 views FINDINGS: There is plantar calcaneal spurring. Metatarsals are intact. There is probably old osteotom y of the first metatarsal head. The toes appear intact. There is narrowing and spurring at the first MP joint. IMPRESSION: Mild degenerative changes. No fracture seen.
[2019-08-25 23:14] VITALS: PULSE 67; RESP 20
[2019-08-25 23:15] VITALS: BP 187/94
== END 2019-08-25 23:30 | disposition home or self-care (01) ==
LOC: EC 18:50
DX: S90.32XA Contusion of left foot, initial encounter (principal); S00.03XA Contusion of scalp, initial encounter; M54.2 Cervicalgia; I48.91 Unspecified atrial fibrillation; K21.9 Gastro-esophageal reflux disease without esophagitis; I10 Essential (primary) hypertension; I34.1 Nonrheumatic mitral (valve) prolapse; M19.90 Unspecified osteoarthritis, unspecified site; E07.9 Disorder of thyroid, unspecified; F41.9 Anxiety disorder, unspecified; G47.30 Sleep apnea, unspecified; Z99.89 Dependence on other enabling machines and devices; Z79.82 Long term (current) use of aspirin; Z79.891 Long term (current) use of opiate analgesic; Z79.1 Long term (current) use of non-steroidal anti-inflammatories (NSAID); Z79.890 Hormone replacement therapy; Z79.52 Long term (current) use of systemic steroids; Z79.899 Other long term (current) drug therapy; Z91.048 Other nonmedicinal substance allergy status; Z91.013 Allergy to seafood; Z88.5 Allergy status to narcotic agent; Z88.8 Allergy status to other drugs, medicaments and biological substances; W08.XXXA Fall from other furniture, initial encounter
CPT/HCPCS: 70450; 72125; 99283

== ENCOUNTER → 2019-09-15 | Outpatient (CLI) | payer MEDICARE ==
[2019-09-15 17:31] LABS: HCT 41.4 % (34.0-46.0); HGB 13.6 gm/dL (11.4-16.0); MCH 31.5 pg (25.0-35.0); MCHC 32.9 g/dL (31.0-37.0); MCV 95.8 fL (80.0-100.0); Platelet Count 272 k/uL (150-450); RBC 4.32 m/uL (3.80-5.40); RDW 12.8 % (11.5-15.5); WBC 11.6 k/uL (3.8-10.6)
[2019-09-15 17:48] LABS: African American GFR (CKD) >90 (>60 ml/min/1.73 sqM); Anion Gap 7 mmol/L; Blood Urea Nitrogen 18 mg/dL (7-17); Carbon Dioxide 26 mmol/L (22-30); Chloride 106 mmol/L (98-107); Non-African American GFR(CKD) 89 (>60 ml/min/1.73 sqM); Potassium 4.1 mmol/L (3.5-5.1); Sodium 139 mmol/L (137-145)
== END | disposition home or self-care (01) ==
LOC: LABPAT 16:25
PROVIDERS: ATTEND Internal Medicine Interventional Cardiology
DX: Z01.812 Encounter for preprocedural laboratory examination (principal); R07.9 Chest pain, unspecified
CPT/HCPCS: 36415; 80051; 82565; 84520; 85027

== ENCOUNTER 2019-09-29 10:49 | Day surgery (SDC) | payer MEDICARE ==
[2019-09-25 15:09] VITALS: BMI 29.1
[~2019-09-29 10:49] MED LIST changes: +ALPRAZolam 0.25 MG TAB PO PRN; +ALPRAZolam 0.5 MG TAB PO PRN; +ASPIRIN 325 MG TAB PO ONE; +ATORVASTATIN 80 MG TAB PO ONE; -LACTATED RINGERS 1,000 ML IV SCH; -LIDOCAINE 1% 20 ML VIAL (10MG/ML) FOR IV START INTRADERMA PRN; -MOXIFLOXACIN HCL 0.5% DROPS 3 ML BTL OP ONE; +NITROGLYCERIN SL TABS 0.4 MG TAB SUBLINGUAL PRN; +SODIUM CHLORIDE 0.9% 1,000 ML in EMPTY BAG 1 BAG IV ONE; -TETRACAINE 0.5% OPHTH (PF) DROPS 4 ML BTL OP ONE; -TIMOLOL 0.5% OPHTH DROPS 5 ML BTL OP ONE
[2019-09-29 11:31] VITALS: RESP 16; TEMP 98.6
[2019-09-29] MEDS ORDERED: fentaNYL (PF) 50 MCG/ML 2 ML AMP IV ONE (12:48)
[2019-09-29] MEDS ORDERED: LIDOCAINE 1% INJ 10MG/ML (20 ML MDV) SQ ONE ×2 (12:52→12:53)
[2019-09-29] MEDS ORDERED: VERAPAMIL SYRINGE (5 MG/10 ML) INTRAARTER ONE (12:54)
[2019-09-29] MEDS ORDERED: MIDAZOLAM 2 MG/2 ML VIAL IV ONE (12:57)
[2019-09-29] MEDS ORDERED: HEPARIN SODIUM 1,000 UN/ML (10ML VL) IV ONE (13:02)
[2019-09-29] MEDS ORDERED: IOPAMIDOL-370 125ML BTL INJ ONE (13:03)
[2019-09-29] MEDS ORDERED: RX INFO: IV CONTRAST WAS GIVEN 1 EACH MISC MISCELLANE PRN (13:16)
[2019-09-29] MEDS ORDERED: SODIUM CHLORIDE 0.9% 1,000 ML IV SCH (13:30)
[2019-09-29] MEDS ORDERED: methylPREDNISolone SOD SUCCI 125 MG/2 ML VIAL ONE (13:39)
[2019-09-29 14:43] VITALS: PULSE 68
--- NOTE | 2019-09-29 16:10 | CC ---
CARDIAC CATHETERIZATION REPORT DATE OF SERVICE: 09/29/2019 Mrs. Byers is a 69-year-old female with known history of hypertension and hyperlipidemia who has been followed by Dr. Miles. She has been complaining of episodes of chest discomfort. In view of that, recommendation was made regarding cardiac catheterization. The procedure, its risks and complications were discussed with the patient, who was in full understanding and agreement. PROCEDURE DESCRIPTION: Patient was brought to the laborer tin can in a fasting, semi-sedated state after receiving fentanyl and Benadryl and achieving a moderate conscious sedated state. Using Xylocaine anesthesia and Seldinger technique, a 6-Kittitian sheath was introduced in the right radial artery. Selective right and left coronary angiography was performed using 5-Kittitian 3-1/2 bend right and left Bee catheters. Multiple views were taken of the coronary arteries, including hemiaxial views. Following that the 5-Kittitian left Bee was used to cross the aortic valve and left ventricular end-diastolic pressure was calculated. Following that, catheter and sheaths were removed. Hemostasis was obtained with deployment of a TR band. There was no immediate complication. Patient was returned to her room in stable condition. Of note, the patient received 4000 units of intravenous heparin as well as intra-arterial verapamil. FINDINGS: LEFT MAIN: This is a short-sized vessel, large in caliber, bifurcating into left circumflex, left anterior descending artery. Left main coronary artery has no evidence of high-grade stenosis. LEFT ANTERIOR DESCENDING ARTERY: This is a large-sized vessel reaching toward the apex with a wrap around the apex segment, tortuous throughout its course, giving rise to a large diagonal branch proximally. The left anterior descending artery as well as its branches have no evidence of obstructive coronary artery disease. LEFT CIRCUMFLEX: This is a nondominant vessel giving rise to 2 obtuse marginal branches. The first one is very proximal. The left circumflex as well as branches have no evidence of obstructive coronary artery disease. RIGHT CORONARY ARTERY: This is a dominant vessel, tortuous, bifurcating distally into PDA and posterolateral segment and branches. The right coronary artery as well as its branches have no evidence of obstructive lung disease. LEFT VENTRICULOGRAM: Left ventriculogram was not performed. HEMODYNAMICS: There was no gradient across the aortic valve. The left ventricular end- diastolic pressure was 12 to 14 mmHg. CONCLUSION: 1. Normal coronary arteries. 2. Normal left ventricular end-diastolic pressure. RECOMMENDATIONS: In view of findings and anatomy, I have recommended continued medical therapy with the aggressive coronary risk modifications that have been initiated. Those findings and recommendation were discussed with the patient and her family, who are in full understanding and agreement. Duration of procedure was 16 minutes. VELASQUEZ / CHERELLE: [id number] /
--- NOTE | 2019-09-29 16:10 | LTR ---
October 09, 2019 To: Dr. Cheung Re: Na Byers (46) Dear Dr. Cheung: I had the pleasure of performing cardiac catheterization on Mrs. Byers at [facility] on September 28. A full copy of the procedure note will be forwarded to you. In brief, she was found to have no evidence of significant obstructive coronary artery disease. Based on those findings, I have recommended continued medical therapy with the aggressive coronary risk modifications you have initiated. Thank you again for allowing me to participate in her care. Please feel free to call with any questions. Sincerely yours, Sharita Victor M.D. VELASQUEZ / CHERELLE: [id number] /
[2019-09-29] MEDS ORDERED: CARBOXYMETHYLCELLULOSE SODIUM BOTH EYES SCH (18:00)
[2019-09-29] MEDS ORDERED: predniSONE 20 MG TAB PO STA (18:05)
[2019-09-29] MEDS ORDERED: diphenhydrAMINE 25 MG CAP PO STA (18:05)
[2019-09-29 18:46] VITALS: BP 162/75
[2019-09-29] MEDS ORDERED: METOPROLOL SUCCINATE (ER) 50 MG TAB.ER.24H PO SCH (21:00)
[2019-09-29] MEDS ORDERED: AMITRIPTYLINE HCL 10 MG TAB PO SCH (21:00)
[2019-09-29] MEDS ORDERED: FAMOTIDINE 20 MG TAB PO SCH (21:00)
[2019-09-30] MEDS ORDERED: PANTOPRAZOLE 40 MG TABLET PO SCH (07:30)
[2019-09-30] MEDS ORDERED: ASPIRIN 81 MG PO SCH (09:00)
[2019-09-30] MEDS ORDERED: LEVOTHYROXINE 25 MCG TAB PO SCH (09:00)
== END 2019-09-29 19:00 | disposition home or self-care (01) ==
LOC: CATHCVL 10:49
PROVIDERS: ATTEND Internal Medicine Interventional Cardiology
DX: R07.89 Other chest pain (principal); R06.02 Shortness of breath; I77.1 Stricture of artery; I10 Essential (primary) hypertension; E78.5 Hyperlipidemia, unspecified; E78.00 Pure hypercholesterolemia, unspecified; I49.3 Ventricular premature depolarization; R01.1 Cardiac murmur, unspecified; N32.81 Overactive bladder; I08.0 Rheumatic disorders of both mitral and aortic valves; E03.9 Hypothyroidism, unspecified; Z79.82 Long term (current) use of aspirin; Z79.899 Other long term (current) drug therapy; Z79.890 Hormone replacement therapy; Z88.5 Allergy status to narcotic agent; Z91.048 Other nonmedicinal substance allergy status
CPT/HCPCS: 93458; C1769; C1894; J2250; J2930; J2001; J3010; J1644; J7512; Q9967

== ENCOUNTER 2019-12-12 13:14 | Emergency (ER) | payer MEDICARE ==
[2019-12-12 13:18] VITALS: RESP 18; TEMP 97.8
[2019-12-12] MEDS ORDERED: LIDOCAINE 1% INJ 10MG/ML (20 ML MDV) SQ STA (13:28)
[2019-12-12] MEDS ORDERED: DIPH,PERTUS(ACELL)TETVAC-LF 0.5 ML VIAL IM ONE (13:28)
--- NOTE | 2019-12-12 15:21 | ED ---
General Adult HPI - General Source: patient, RN notes reviewed, old records reviewed Mode of arrival: ambulatory Limitations: no limitations <Kurtis Guevara - Last Filed: 12/12/19 15:40> <Rusty Pederson - Last Filed: 12/13/19 07:15> - General Chief complaint: Wound/Laceration Stated complaint: Finger laceration Time Seen by Provider: 12/12/19 13:21 - History of Present Illness Initial comments: 69-year-old female patient brought [place] for chief complaint of laceration. Patient reports that she cut her left index finger with a pair of garden scissors. Did not know date of last tetanus. Denies any other complaints. (Kurtis Guevara) - Related Data Home Medications Medication Instructions Recorded Confirmed ALPRAZolam [Xanax] 0.25 mg PO TID PRN 06/02/14 09/29/19 Amitriptyline HCl [Elavil] 10 mg PO HS 06/02/14 09/29/19 oxyCODONE-APAP 5-325MG [Percocet 1 tab PO QID PRN 06/02/14 09/29/19 5-325 mg] Aspirin [Adult Low Dose Aspirin EC] 81 mg PO QAM 11/19/18 09/29/19 Vit C/E/Zn/Coppr/Lutein/Zeaxan 1 tab PO BID 11/19/18 09/29/19 [Preservision Areds 2 Softgel] Famotidine [Pepcid] 20 mg PO HS 08/03/19 09/29/19 ALPRAZolam [Xanax] 0.5 mg PO HS PRN 08/25/19 09/29/19 Levothyroxine Sodium [Synthroid] 37.5 mcg PO QAM 08/25/19 09/29/19 Metoprolol Succinate [Toprol XL] 50 mg PO BID 08/25/19 09/29/19 Omeprazole 20 mg PO QAM 08/25/19 09/29/19 Sennosides [Senokot] 8.6 mg PO DAILY PRN 08/25/19 09/29/19 Carboxymethylcellulose Sodium 1 drop BOTH EYES QID 09/25/19 09/29/19 [Refresh Tears] Allergies Allergy/AdvReac Type Severity Reaction Status Date / Time Iodine and Iodide Containing Allergy Severe Rash/Hives, Verified 12/12/19 13:19 Produc Dyspnea, elevated blood pressure cobalt Allergy Unknown allergy Verified 12/12/19 13:19 testing positive nickel Allergy Unknown Allergy Verified 12/12/19 13:19 testing positive shellfish derived [Shellfish] Allergy Unknown Rash, Verified 12/12/19 13:19 dyspnea, elevated bloodpressure codeine AdvReac Nausea & Verified 12/12/19 13:19 Vomiting morphine AdvReac VOMITING(SE Verified 12/12/19 13:19 JESI) regadenoson [From Lexiscan] AdvReac Rash/Hives. Verified 12/12/19 13:19 Review of Systems ROS Other: All systems not noted in ROS Statement are negative. <Kurtis Guevara - Last Filed: 12/12/19 15:40> ROS Other: All systems not noted in ROS Statement are negative. <Rusty Pederson - Last Filed: 12/13/19 07:15> ROS Statement: Those systems with pertinent positive or pertinent negative responses have been documented in the HPI. Past Medical History Past Medical History: Atrial Fibrillation, GERD/Reflux, Hyperlipidemia, Hypertension, Mitral Valve Prolapse (MVP), Osteoarthritis (OA), Sleep Apnea/CPAP/BIPAP, Thyroid Disorder Additional Past Medical History / Comment(s): DDD, STENOSIS & CURVATURE OF SPINE., MIGRAINE HEADACHES, MACULAR DEGENERATION, CHRONIC CONSTIPATION., BLADDER LEAKAGE., C PAP MACHINE, cataracts History of Any Multi-Drug Resistant Organisms: None Reported Past Surgical History: Back Surgery, Hysterectomy, Orthopedic Surgery, Tonsillectomy Additional Past Surgical History / Comment(s): RIGHT SHOULDER SURGERY X5 WITH ROTATOR CUFF REPAIR AND REVERSE SHOULDER WITH RODS., MULTIPLE BACK SURGERIES WITH CAGE & PLATE. , LEFT KNEE ARTHROSCOPIC, RIGHT CARPAL TUNNEL RELEASE., INJECTIONS FOR BLADDER LEAKAGE. left eye cataract removal, Past Anesthesia/Blood Transfusion Reactions: Motion Sickness, Postoperative Nausea & Vomiting (PONV) Past Psychological History: Anxiety Smoking Status: Never smoker Past Alcohol Use History: None Reported Past Drug Use History: None Reported - Past Family History Mother Family Medical History: No Reported History Brother(s) Family Medical History: Deep Vein Thrombosis (DVT), Rheumatoid Arthritis (RA) <Kurtis Guevara - Last Filed: 12/12/19 15:40> General Exam Limitations: no limitations <Kurtis Guevara - Last Filed: 12/12/19 15:40> - General Exam Comments Initial Comments: Constitutional: NAD, AOX3, Pt has pleasant affect. HEENT: NC/AT, trachea midline, neck supple, External ears appear normal, without discharge. Mucous membranes moist. EOM intact. There is no scleral icterus. No pallor noted. Cardiopulmonary: RRR, no murmurs, rubs or gallops, no JVD noted. Lungs CTAB in anterior and posterior padron. No peripheral edema. Neuro: CN II-XII grossly intact. No nuchal rigidity. No raccon eyes, no irizarry sign, no hemotympanum. No cervical spinal tenderness. MSK: 1 cm laceration to second digit left hand MCP joint palmar aspect. There is a irrigated approximate 2 simple interrupted sutures. Full active range of motion and strength and sensation intact before and after suture placement. Full active ROM in upper and lower extremities, 5/5 stregnth. (Kurtis Guevara) Course <Rusty Pederson - Last Filed: 12/13/19 07:15> Vital Signs 12/12/19 12/12/19 13:15 15:23 Temperature 97.8 F Pulse Rate 62 60 Respiratory 18 18 Rate Blood Pressure 110/69 110/72 O2 Sat by Pulse 98 98 Oximetry - Reevaluation(s) Reevaluation #1: 12/13/19 07:15 PA supervision: I proceeded review this ER admission patient did sustain a laceration to do agree with the assessment and plan. (Rusty Pederson) Procedures - Laceration Laceration #1 Consent Obtained: verbal consent Indication: laceration Site: hand Size (cm): 1 Description: linear Depth: simple, single layer Anesthetic Used: lidocaine 1% Anesthesia Technique: local infiltration Amount (mls): 2 Pre-repair: wound explored, irrigated extensively, deep structures intact Type of Sutures: nylon Size of Sutures: 5-0 Number of Sutures: 2 Technique: simple, interrupted Patient Tolerated Procedure: well, no complications <Kurtis Guevara - Last Filed: 12/12/19 15:40> Medical Decision Making <Kurtis Guevara - Last Filed: 12/12/19 15:40> - Medical Decision Making 69-year-old female patient presents to ED for evaluation of laceration. Patient vital signs are stable, afebrile. Physical exam didn't display laceration. This was irrigated and repaired. Patient was discharged with return precautions. Case discussed with Dr. Werner. (Kurtis Guevara) Disposition Is patient prescribed a controlled substance at d/c from ED?: No <Kurtis Guevara - Last Filed: 12/12/19 15:40> <Rusty Pederson - Last Filed: 12/13/19 07:15> Clinical Impression: Laceration Disposition: HOME SELF-CARE Condition: Stable Instructions (If sedation given, give patient instructions): Laceration (ED) Additional Instructions: Please return for suture removal: Hand: 7-10 days Face: 5 days Chest/abdomen: 12-14 days Extremities: 7-10 days Scalp: 7 days Eyebrow: 5-7 days Foot/sole: 12-14 days Please monitor for signs and symptoms of infection including: redness, warmth, drainage, discharge. Please return to ED if these signs or symptoms occur, new signs or symptoms develop or if condition worsens in anyway. Follow up with PCP in 1-2 days. Referrals: Uzair Cheung DO [Primary Care Provider] - 1-2 days
[2019-12-12 15:24] VITALS: BP 110/72; PULSE 60
== END 2019-12-12 15:23 | disposition home or self-care (01) ==
LOC: EC 13:14
DX: S61.211A Laceration without foreign body of left index finger without damage to nail, initial encounter (principal); I10 Essential (primary) hypertension; K21.9 Gastro-esophageal reflux disease without esophagitis; I48.91 Unspecified atrial fibrillation; F41.9 Anxiety disorder, unspecified; G47.30 Sleep apnea, unspecified; Z23 Encounter for immunization; Z79.82 Long term (current) use of aspirin; Z79.890 Hormone replacement therapy; Z79.899 Other long term (current) drug therapy; Z91.041 Radiographic dye allergy status; Z91.048 Other nonmedicinal substance allergy status; Z91.013 Allergy to seafood; Z88.5 Allergy status to narcotic agent; Z88.8 Allergy status to other drugs, medicaments and biological substances; Z99.89 Dependence on other enabling machines and devices; W27.2XXA Contact with scissors, initial encounter; Y93.H2 Activity, gardening and landscaping
CPT/HCPCS: 90715; 99283; 12001; 90471; J2001

== ENCOUNTER → 2020-02-11 | Outpatient (CLI) | payer MEDICARE ==
--- NOTE | 2020-02-12 14:00 | MM ---
Reason for exam: screening (asymptomatic). Last mammogram was performed 2 years and 5 months ago. History: Patient is postmenopausal. Family history of breast cancer in maternal aunt at age 84. Benign left US cyst aspiration of the left breast, November 25, 2006. Benign US left guided mammotome of the left breast, November 25, 2006. Benign US left guided mammotome of the left breast, November 25, 2006. Ultrasound-guided cyst aspiration of the right breast, April 26, 2000. Benign ultrasound-guided core biopsy of the right breast, April 26, 2000. Benign cyst aspiration of the right breast, March 25, 1998. Benign excisional biopsy of the right breast, March 25, 1998. Cyst aspiration of the left breast. 3 cyst aspirations of the right breast. Core biopsy of the right breast. 2 excisional biopsies of the right breast. Took hormonal contraceptives for 10 months beginning at age 17. Took estrogen for 17 years beginning at age 45. Physical Findings: A clinical breast exam by your physician is recommended on an annual basis and results should be correlated with mammographic findings. MG 3D Screening Mammo W/Cad Bilateral CC and MLO view(s) were taken. Prior study comparison: September 04, 2017, bilateral MG 3d diag mammo w/cad BRENDEN. July 19, 2016, bilateral MG 3d diag mammo w/cad BRENDEN. The breast tissue is heterogeneously dense. This may lower the sensitivity of mammography. Previous mammotome biopsy in the left breast. Distortion right axilla. This finding is changed when compared with previous exams. ASSESSMENT: Incomplete: need additional imaging evaluation, BI-RAD 0 RECOMMENDATION: Ultrasound of the right breast. [facility] will attempt to contact patient to return for ultrasound.
== END | disposition home or self-care (01) ==
LOC: RADMAMWWP 09:40
PROVIDERS: ATTEND Family Medicine
DX: Z12.31 Encounter for screening mammogram for malignant neoplasm of breast (principal)
CPT/HCPCS: 77063; 77067

== ENCOUNTER → 2020-02-17 | Outpatient (CLI) | payer MEDICARE ==
--- NOTE | 2020-02-17 11:49 | FL ---
EXAMINATION TYPE: FL barium swallow DATE OF EXAM: 02/17/2020 COMPARISON: None HISTORY: Gastroesophageal reflux TECHNIQUE: Overhead radiographs and fluoroscopic imaging is performed over the esophagus with double air-contrast technique. FINDINGS: Scattered tertiary contractions are evident. There is incomplete stripping the esophageal b olus in the horizontal drinking position. Secondary contraction was observed in the horizontal drinki ng position. Esophagus dilates to normal caliber. No intraluminal or extramural defects are evident. IMPRESSION: 1. Presbyesophagus.
== END | disposition home or self-care (01) ==
LOC: RADUSWWP 10:17
PROVIDERS: ATTEND Family Medicine
DX: K22.8 Other specified diseases of esophagus (principal)
CPT/HCPCS: 74220

== ENCOUNTER → 2020-02-18 | Outpatient (CLI) | payer MEDICARE ==
--- NOTE | 2020-02-18 20:08 | SFUN ---
SLEEP CENTER FOLLOW UP NOTE DATE OF SERVICE: 02/18/2020 This patient is a 69-year-old lady who has been followed in Sleep Center for treatment of obstructive sleep apnea-hypopnea syndrome. The patient stopped using her CPAP equipment for several months. Also during the previous visit in June of 2019 she demonstrated good compliance with treatment. Her [place] Sleepiness Scale today is 18, which is significantly above normal, indicating sleepiness. I checked her CPAP unit. CPAP pressure is 10 cm of water. Usage is zero for the last 6 months. MEDICATIONS: Toprol, losartan, baby aspirin, famotidine, Synthroid, Elavil. PHYSICAL EXAMINATION: GENERAL: A pleasant patient in no distress. VITAL SIGNS: BP 145/73, HR 64, RR 16, height 5 feet 4-1/2 inches, weight 182, BMI 30.7, temperature 98.1, oxygen saturation at room air 98%. HEENT: PERRLA, EOMI. Evaluation of oropharynx showed tongue protrudes midline. Low position of soft palate. Mallampati IV. NECK: Supple. No JVD. Thyroid is not palpable. LUNGS: Clear to percussion and to auscultation. Good air exchange. No wheezing or rhonchi. HEART: S1, S2 regular. No murmurs, gallops or rubs. ABDOMEN: Soft and nontender. Bowel sounds are present. No organomegaly. EXTREMITIES: No clubbing or cyanosis. VICE PRESIDENT QUALITY IMPROVEMENT: Awake, alert, and oriented X3. Cranial nerves 2 to 7 intact. There is no fasciculation or atrophy. noted. No focal deficits observed. IMPRESSION: 1. Severe obstructive sleep apnea-hypopnea syndrome, AHI 32.2 with oxygen desaturation to 68.2%. Presently patient does not use her CPAP equipment. 2. History of atrial fibrillation. 3. Acid reflux. 4. Hypertension. 5. Asthma. 6. Hypothyroidism. 7. History of depression. 8. History of mitral valve prolapse. 9. History of panic attacks. PLAN: 1. I extensively discussed with the patient the necessity of continuing to use the machine every night for the whole night and risk of not using the machine for health problems. 2. Sleep hygiene with regular time in bed for at least 7-1/2 hours. 3. Precautions related to driving. No driving if feeling sleepiness. 4. I will maintain all necessary prescription for PAP supplies including mask, tube, filters. 5. Watching weight. 6. No driving if feeling sleepiness. 7. Follow-up visit in 3 months, or earlier if patient has any problems. Thank you very much for allowing me to participate in the management of your patient. Sincerely, Booker Alvarenga MD, PhD, FAASM Diplomat of [place] [employer] [place] [employer] Assistant Professor Of [employer] [facility] [place] MMODL / MILYN: [id number] /
== END | disposition home or self-care (01) ==
LOC: SLEEP 10:47
PROVIDERS: ATTEND Internal Medicine
DX: G47.33 Obstructive sleep apnea (adult) (pediatric) (principal); K21.9 Gastro-esophageal reflux disease without esophagitis; I10 Essential (primary) hypertension; J45.909 Unspecified asthma, uncomplicated; E03.9 Hypothyroidism, unspecified; Z86.79 Personal history of other diseases of the circulatory system; Z86.59 Personal history of other mental and behavioral disorders; Z99.89 Dependence on other enabling machines and devices

== ENCOUNTER 2020-02-22 10:30 | Observation (INO) | payer MEDICARE ==
[2020-02-22] MEDS ORDERED: fentaNYL (PF) 50 MCG/ML 2 ML AMP IVP STA (11:14)
[2020-02-22 11:31] LABS: Basophils # (A) 0.1 k/uL (0-0.2); Basophils % (A) 1 %; Eosinophils # (A) 0.3 k/uL (0-0.7); Eosinophils % (A) 5 %; HCT 41.3 % (34.0-46.0); HGB 13.6 gm/dL (11.4-16.0); Lymphocytes # (A) 1.9 k/uL (1.0-4.8); Lymphocytes % (A) 31 %; MCH 31.5 pg (25.0-35.0); MCV 95.5 fL (80.0-100.0); Mean Platelet Volume 8.5; Monocytes # (A) 0.3 k/uL (0-1.0); Monocytes % (A) 5 %; Neutrophils # (A) 3.2 k/uL (1.3-7.7); Neutrophils % (A) 54 %; Platelet Count 212 k/uL (150-450); RBC 4.33 m/uL (3.80-5.40); RDW 12.9 % (11.5-15.5)
[2020-02-22 11:44] LABS: ALT 13 U/L (4-34); AST 27 U/L (14-36); African American GFR (CKD) >90 (>60 ml/min/1.73 sqM); Alkaline Phosphatase 53 U/L (38-126); Anion Gap 6 mmol/L; Blood Urea Nitrogen 15 mg/dL (7-17); Calcium 9.2 mg/dL (8.4-10.2); Carbon Dioxide 24 mmol/L (22-30); Chloride 108 mmol/L (98-107); Glucose 99 mg/dL (74-99); Magnesium 1.8 mg/dL (1.6-2.3); Non-African American GFR(CKD) >90 (>60 ml/min/1.73 sqM); Potassium 4.8 mmol/L (3.5-5.1); Sodium 138 mmol/L (137-145); Total Bilirubin 0.4 mg/dL (0.2-1.3); Total Protein 6.7 g/dL (6.3-8.2)
--- NOTE | 2020-02-22 11:44 | XR ---
EXAMINATION TYPE: XR chest 2V DATE OF EXAM: 02/22/2020 COMPARISON: Chest x-ray May 01, 2018. HISTORY: Chest pain. Dysrhythmia. TECHNIQUE: Frontal and lateral views of the chest are obtained. FINDINGS: There is chronic parenchymal change with right apical scarring and/or pleural thickening. There is no new suspicious focal air space opacity, pleural effusion, or pneumothorax seen. The card iac silhouette size is mildly enlarged with overlying loop recorder in the anterior chest wall. Metal lic hardware for right shoulder surgery is partially imaged similar to prior. IMPRESSION: Chronic changes and cardiomegaly without acute pulmonary process.
[2020-02-22 11:52] LABS: Partial Thromboplastin Time 22.6 sec (22.0-30.0); Prothrombin Time 10.1 sec (9.0-12.0)
[2020-02-22 12:07] LABS: D-Dimer 0.8 mg/L FEU (<0.60)
--- NOTE | 2020-02-22 12:20 | ED ---
Chest Pain HPI - General Chief Complaint: Chest Pain Stated Complaint: chest pain Time Seen by Provider: 02/22/20 10:40 Source: patient Mode of arrival: ambulatory Limitations: no limitations - History of Present Illness Initial Comments: Patient is a 69-year-old female presents emergency room with reported chest pain. She describes it as a substernal pain which causes her to be extremely short of breath. There is radiation of pain to her left arm. States it got worse while she was trying to get dressed this morning. It is not reproducible. Reports that it is underneath her loop recorder. Patient has this in place that she has a history of multiple PVCs. She sees Dr. Mcgovern in office. Patient was given an aspirin and nitro by EMS. States that it did help her pain. States the pain is not what is most discomforting but it is the shortness of breath. Denies history of DVT or PE. Patient currently on any anti- coagulation. Reports that she had lower extremity swelling. No recent travel. No calf pain. Denies fevers or chills. No cough or hemoptysis. No other alleviating, organ fixer modifying factors - Related Data Home Medications Medication Instructions Recorded Confirmed ALPRAZolam [Xanax] 0.25 mg PO TID PRN 06/02/14 02/22/20 Amitriptyline HCl [Elavil] 10 mg PO HS 06/02/14 02/22/20 oxyCODONE-APAP 5-325MG [Percocet 1 tab PO QID PRN 06/02/14 02/22/20 5-325 mg] Aspirin [Adult Low Dose Aspirin EC] 81 mg PO QAM 11/19/18 02/22/20 Vit C/E/Zn/Coppr/Lutein/Zeaxan 1 cap PO BID 11/19/18 02/22/20 [Preservision Areds 2 Softgel] Famotidine [Pepcid] 40 mg PO HS 08/03/19 02/22/20 ALPRAZolam [Xanax] 0.5 mg PO HS PRN 08/25/19 02/22/20 Levothyroxine Sodium [Synthroid] 37.5 mcg PO QAM 08/25/19 02/22/20 Metoprolol Succinate [Toprol XL] 50 mg PO BID 08/25/19 02/22/20 Sennosides [Senokot] 8.6 mg PO DAILY 08/25/19 02/22/20 Carboxymethylcellulose Sodium 1 drop BOTH EYES QID PRN 09/25/19 02/22/20 [Refresh Tears] Losartan Potassium [Cozaar] 25 mg PO DAILY 02/22/20 02/22/20 Allergies Allergy/AdvReac Type Severity Reaction Status Date / Time Iodine and Iodide Containing Allergy Severe Rash/Hives, Verified 02/22/20 13:05 Produc Dyspnea, elevated blood pressure cobalt Allergy Unknown allergy Verified 02/22/20 13:05 testing positive nickel Allergy Unknown Allergy Verified 02/22/20 13:05 testing positive shellfish derived [Shellfish] Allergy Unknown Rash, Verified 02/22/20 13:05 dyspnea, elevated bloodpressure codeine Allergy Nausea & Verified 02/22/20 13:05 Vomiting morphine Allergy VOMITING(SE Verified 02/22/20 13:05 JESI) regadenoson [From Lexiscan] Allergy Rash/Hives. Verified 02/22/20 13:05 Review of Systems ROS Statement: Those systems with pertinent positive or pertinent negative responses have been documented in the HPI. ROS Other: All systems not noted in ROS Statement are negative. EKG Findings - EKG Comments: EKG Findings:: EKG demonstrates a sinus rhythm with frequent PVCs. Rate of 69. WA interval 180. QRS 72. QTC of 411. No acute ST segment elevations or depressions Past Medical History Past Medical History: Atrial Fibrillation, GERD/Reflux, Hyperlipidemia, Hypertension, Mitral Valve Prolapse (MVP), Osteoarthritis (OA), Sleep Apnea/CPAP/BIPAP, Thyroid Disorder Additional Past Medical History / Comment(s): DDD, STENOSIS & CURVATURE OF SPINE., MIGRAINE HEADACHES, MACULAR DEGENERATION, CHRONIC CONSTIPATION., BLADDER LEAKAGE., C PAP MACHINE, cataracts History of Any Multi-Drug Resistant Organisms: None Reported Past Surgical History: Back Surgery, Hysterectomy, Orthopedic Surgery, Tonsillectomy Additional Past Surgical History / Comment(s): RIGHT SHOULDER SURGERY X5 WITH ROTATOR CUFF REPAIR AND REVERSE SHOULDER WITH RODS., MULTIPLE BACK SURGERIES WITH CAGE & PLATE. , LEFT KNEE ARTHROSCOPIC, RIGHT CARPAL TUNNEL RELEASE., INJECTIONS FOR BLADDER LEAKAGE. left eye cataract removal, Past Anesthesia/Blood Transfusion Reactions: Motion Sickness, Postoperative Nausea & Vomiting (PONV) Past Psychological History: Anxiety Smoking Status: Never smoker Past Alcohol Use History: None Reported Past Drug Use History: None Reported - Past Family History Mother Family Medical History: No Reported History Brother(s) Family Medical History: Deep Vein Thrombosis (DVT), Rheumatoid Arthritis (RA) General Exam Limitations: no limitations General appearance: alert, in no apparent distress Head exam: Present: atraumatic, normocephalic, normal inspection Eye exam: Present: normal appearance, PERRL, EOMI. Absent: scleral icterus, conjunctival injection, periorbital swelling ENT exam: Present: normal exam, mucous membranes moist Neck exam: Present: normal inspection. Absent: tenderness, meningismus, lymphadenopathy Respiratory exam: Present: normal lung sounds bilaterally. Absent: respiratory distress, wheezes, rales, rhonchi, stridor Cardiovascular Exam: Present: regular rate, normal rhythm, normal heart sounds. Absent: systolic murmur, diastolic murmur, rubs, gallop, clicks GI/Abdominal exam: Present: soft, normal bowel sounds. Absent: distended, tenderness, guarding, rebound, rigid Extremities exam: Present: normal inspection, full ROM, normal capillary refill. Absent: tenderness, pedal edema, joint swelling, calf tenderness Back exam: Present: normal inspection Neurological exam: Present: alert, oriented X3, CN II-XII intact Psychiatric exam: Present: normal affect, normal mood Skin exam: Present: warm, dry, intact, normal color. Absent: rash Course Vital Signs 02/22/20 02/22/20 02/22/20 10:40 10:43 11:00 Temperature 97.8 F Pulse Rate 76 85 Respiratory 18 14 Rate Blood Pressure 152/80 152/80 O2 Sat by Pulse 96 98 98 Oximetry 02/22/20 02/22/20 02/22/20 11:30 12:00 12:30 Temperature Pulse Rate 65 72 Respiratory 18 15 Rate Blood Pressure 160/87 160/87 176/92 O2 Sat by Pulse 98 97 Oximetry 02/22/20 02/22/20 13:00 13:22 Temperature 97.8 F Pulse Rate 58 L 58 L Respiratory 16 16 Rate Blood Pressure 147/82 147/82 O2 Sat by Pulse 96 96 Oximetry Chest Pain MDM - MDM Upon arrival the patient is placed into room 4. Through history of physical exam is performed. Pelvic EKG is performed. Patient hooked up to continuous pulse ox and cardiac monitoring. Lab studies demonstrate a d-dimer of 0.8. Troponin is negative. Chest x-rays performed which demonstrates chronic changes and cardiomegaly without any acute process. Because the patient's elevated d- dimer with reported shortness of breath I did recommend a V/Q scan as the patient has an ALLERGY to contrast. Patient did agree to this. She will be admitted to Dr. Castro who agreed to admit the patient. VQ scan is pending. She was given a dose of Lovenox. Patient remained in stable condition awaiting bed on the floor Disposition Clinical Impression: Chest pain, Acute respiratory insufficiency, Elevated d-dimer Disposition: ADMITTED IP TO THIS HOSP Condition: Stable Is patient prescribed a controlled substance at d/c from ED?: No Decision to Admit Reason: Admit from EC Decision Date: 02/22/20 Decision Time: 12:52
[2020-02-22] MEDS ORDERED: NALOXONE 0.4 MG/ML 1 ML VIAL IV PRN (12:52)
[2020-02-22] MEDS ORDERED: ENOXAPARIN 80 MG/0.8 ML SYRINGE SQ STA (12:56)
[2020-02-22 16:25] LABS: Glucose,Whole Blood 98 mg/dL (75-99)
[2020-02-22] MEDS: NITROGLYCERIN OINT 1 INCH/GM PACKET TOPICAL SCH (16:46)
[2020-02-22] MEDS ORDERED: HYDROmorphone 0.5 MG/0.5 ML SYRINGE IVP STA (17:12)
[2020-02-22] MEDS ORDERED: HEPARIN SOD,PORK IN 0.45% NACL 25,000 UNIT in 0.45% NACL 1 250ML.BAG IV SCH (17:15)
[2020-02-22] MEDS ORDERED: ALPRAZolam 0.5 MG TAB PO PRN (17:21)
[2020-02-22] MEDS ORDERED: ARTIFICIAL TEARS-HYPROMELLOSE DROPS 15 ML BTL BOTH EYES PRN (17:21)
[2020-02-22] MEDS ORDERED: ALPRAZolam 0.25 MG TAB PO PRN (17:21)
[2020-02-22] MEDS: ONDANSETRON 4 MG/2 ML VIAL IVP PRN ×2 (17:31→22:45)
--- NOTE | 2020-02-22 20:20 | NM ---
EXAMINATION TYPE: NM pul vent and perfuse DATE OF EXAM: 02/22/2020 COMPARISON: Chest x-ray earlier today. HISTORY: Chest pain and shortness of breath. TECHNIQUE: Utilizing inhalation of 69.5 mCi Tc 99m DTPA aerosol and intravenous injection of 4.8 mCi of Tc 99m MAA, ventilation and perfusion images are acquired post injection in multiple projections. FINDINGS: Some heterogeneity of radiotracer distribution is noted in the lungs. There is no evidence of mismatc hed defects. IMPRESSION: Low scintigraphic evidence for acute pulmonary embolism.
[2020-02-22] MEDS ORDERED: AMITRIPTYLINE HCL 10 MG TAB PO SCH (21:00)
[2020-02-22] MEDS ORDERED: FAMOTIDINE 20 MG TAB PO SCH (21:00)
[2020-02-22] MEDS: VIT A,C & E-LUTEIN-MINERALS 1 EACH TAB PO SCH (21:40)
[2020-02-22] MEDS: METOPROLOL SUCCINATE (ER) 50 MG TAB.ER.24H PO SCH (21:40)
--- NOTE | 2020-02-22 21:53 | US ---
EXAMINATION TYPE: US abdomen limited DATE OF EXAM: 02/22/2020 COMPARISON: NONE CLINICAL HISTORY: RUQ pain. RUQ pain x 6 months. EXAM MEASUREMENTS: Liver Length: 15.4 cm Gallbladder Wall: 0.27 cm CBD: Not visualized Right Kidney: 10.0 x 5.0 x 4.3 cm Very limited exam due to overlying bowel gas and patient body habitus. Patient was NPO, proper exam prep. Pancreas: Limited visibility. Portions seen appear hyperechoic. Liver: Limited. Left lobe appears small. Gallbladder: Limited, fold seen. Possible internal echoes seen versus artifact. Evidence for sonographic Gagnon's sign: No CBD: Not visualized by ultrasound. Right Kidney: No hydronephrosis or masses seen Visualized pancreas is markedly heterogeneous without mass or ductal dilatation. Visualized liver is heterogeneously hyperechoic without ductal dilatation. Gallbladder not well seen without shadowing mo bile gallstones. Limited images of right kidney show no hydronephrosis. IMPRESSION: Suboptimal study without shadowing mobile gallstones or ultrasound evidence for acute cho lecystitis. Probable diffuse fatty infiltration of liver. Correlate clinically.
--- NOTE | 2020-02-23 00:05 | P.HPIM ---
History of Present Illness H&P Date: 02/22/20 Chief Complaint: Chest Pain Patient is a 69-year-old female with a known history of hypertension, hyperlipidemia, mitral valve prolapse, obstructive sleep apnea, hypothyroidism, degenerative disc disease, migraine headaches, paroxysmal atrial fibrillation currently not on any anticoagulation, patient is on loop recorder and other multiple medical problems presents to ER with complaints of chest pain. Patient states that her blood pressure has been elevated recently was in 170s. Patient today developed substernal chest pain while here she was driving and felt like funny feeling in the chest. Patient does have radiation of the pain to her left arm and felt extremely short of breath. Patient was picked up by EMS tach and found to have elevated blood pressure. Patient follows with Dr. Chang as an outpatient. Patient was given aspirin and nitro by EMS. Patient states that it did help. Denied any leg swelling calf tenderness or pain. Denied any fever or chills. No nausea vomiting or abdominal pain or diarrhea. Patient states that she has not been feeling well and not taking for self since her 's . Patient does complaining of right upper quadrant discomfort and pain for the past 6 months. No history of gallstones or cholecystectomy. Laboratory data showed WBC 6.0, hemoglobin 13.6 and platelets 212 D-dimer is 0.8 Troponin x2- proBNP is 295 Liver enzymes are not elevated Total bilirubin level is 0.4 Review of Systems Constitutional: Patient denies any fever or chills . No generalized weakness or weight loss. Abdomen: Patient denied nausea vomiting and diarrhea and abdominal pain. Cardiovascular: Patient does have chest pain radiating to the left arm associate with shortness of breath. No leg swelling no palpitations.. Respiratory: patient denied any cough is from production. No shortness of breath Neurologic: Patient denied any numbness or tingling headache. Musculoskeletal: Patient denies any complaints of joint swelling or deformity. Skin: Negative Psychiatric: Negative Endocrine: No heat or cold intolerance. No recent weight gain. Genitourinary: No dysuria or hematuria. All other 14 point ROS negative except the above Past Medical History Past Medical History: Atrial Fibrillation, GERD/Reflux, Hyperlipidemia, Hype rtension, Mitral Valve Prolapse (MVP), Osteoarthritis (OA), Sleep Apnea/CPAP/BIPAP, Thyroid Disorder Additional Past Medical History / Comment(s): DDD, STENOSIS & CURVATURE OF SPINE., MIGRAINE HEADACHES, MACULAR DEGENERATION, CHRONIC CONSTIPATION., BLADDER LEAKAGE., C PAP MACHINE, cataracts History of Any Multi-Drug Resistant Organisms: None Reported Past Surgical History: Back Surgery, Hysterectomy, Orthopedic Surgery, T onsillectomy Additional Past Surgical History / Comment(s): RIGHT SHOULDER SURGERY X5 WITH ROTATOR CUFF REPAIR AND REVERSE SHOULDER WITH RODS., MULTIPLE BACK SURGERIES WITH CAGE & PLATE. , LEFT KNEE ARTHROSCOPIC, RIGHT CARPAL TUNNEL RELEASE., INJECTIONS FOR BLADDER LEAKAGE. left eye cataract removal, Past Anesthesia/Blood Transfusion Reactions: Motion Sickness, Postoperative Nausea & Vomiting (PONV) Past Psychological History: Anxiety Smoking Status: Never smoker Past Alcohol Use History: None Reported Past Drug Use History: None Reported - Past Family History Mother Family Medical History: No Reported History Brother(s) Family Medical History: Deep Vein Thrombosis (DVT), Rheumatoid Arthritis (RA) Medications and Allergies Home Medications Medication Instructions Recorded Confirmed Type ALPRAZolam [Xanax] 0.25 mg PO TID PRN 06/02/14 02/22/20 History Amitriptyline HCl [Elavil] 10 mg PO HS 06/02/14 02/22/20 History oxyCODONE-APAP 5-325MG [Percocet 1 tab PO QID PRN 06/02/14 02/22/20 History 5-325 mg] Aspirin [Adult Low Dose Aspirin EC] 81 mg PO QAM 11/19/18 02/22/20 History Vit C/E/Zn/Coppr/Lutein/Zeaxan 1 cap PO BID 11/19/18 02/22/20 History [Preservision Areds 2 Softgel] Famotidine [Pepcid] 40 mg PO HS 08/03/19 02/22/20 History ALPRAZolam [Xanax] 0.5 mg PO HS PRN 08/25/19 02/22/20 History Levothyroxine Sodium [Synthroid] 37.5 mcg PO QAM 08/25/19 02/22/20 History Metoprolol Succinate [Toprol XL] 50 mg PO BID 08/25/19 02/22/20 History Sennosides [Senokot] 8.6 mg PO DAILY 08/25/19 02/22/20 History Carboxymethylcellulose Sodium 1 drop BOTH EYES QID PRN 09/25/19 02/22/20 History [Refresh Tears] Losartan Potassium [Cozaar] 25 mg PO DAILY 02/22/20 02/22/20 History Allergies Allergy/AdvReac Type Severity Reaction Status Date / Time Iodine and Iodide Containing Allergy Severe Rash/Hives, Verified 02/22/20 13:05 Produc Dyspnea, elevated blood pressure cobalt Allergy Unknown allergy Verified 02/22/20 13:05 testing positive nickel Allergy Unknown Allergy Verified 02/22/20 13:05 testing positive shellfish derived [Shellfish] Allergy Unknown Rash, Verified 02/22/20 13:05 dyspnea, elevated bloodpressure codeine Allergy Nausea & Verified 02/22/20 13:05 Vomiting morphine Allergy VOMITING(SE Verified 02/22/20 13:05 JESI) regadenoson [From Lexiscan] Allergy Rash/Hives. Verified 02/22/20 13:05 Physical Exam Vitals: Vital Signs Temp Pulse Pulse Resp BP BP Pulse Ox 02/22/20 15:00 97.8 F 46 L 18 170/68 99 02/22/20 13:22 97.8 F 58 L 16 147/82 96 02/22/20 13:00 58 L 16 147/82 96 02/22/20 12:30 72 15 176/92 97 02/22/20 12:00 65 18 160/87 98 02/22/20 11:30 160/87 02/22/20 11:00 85 14 152/80 98 02/22/20 10:43 97.8 F 76 18 152/80 98 02/22/20 10:40 96 Intake and Output 02/22/20 02/22/20 02/22/20 06:59 14:59 22:59 Other: # Voids 1 Weight 80.739 kg PHYSICAL EXAMINATION: Patient is lying in the bed comfortably, no acute distress, awake alert and oriented.. HEENT: Normocephalic. Neck is supple. Pupils reactive. Nostrils clear. Oral ca vity is moist. Ears reveal no drainage. Neck reveals no JVD, carotid bruits, or thyromegaly. CHEST EXAMINATION: Trachea is central. Symmetrical expansion. Lung padron clear to auscultation and percussion. CARDIAC: Normal S1, S2 with no gallops. No murmurs ABDOMEN: Soft. Bowel sounds normal. No organomegaly. No abdominal bruits. Extremities: reveal no edema. No clubbing or cyanosis Neurologically awake, alert, oriented x3 with well-coordinated movements. No focal deficits noted Skin: No rash or skin lesions. Psychiatric: Coperative. Nonsuicidal Musculoskeletal: No joint swelling or deformity. Normal range of motion. Results CBC & Chem 7: 02/22/20 11:13 02/22/20 11:13 Labs: Abnormal Lab Results - Last 24 Hours (Table) 02/22/20 02/22/20 Range/Units 11:13 11:13 D-Dimer 0.80 H (<0.60) mg/L FEU Chloride 108 H (98-107) mmol/L Thrombosis Risk Factor Assmnt - DVT/VTE Prophylaxis DVT/VTE Prophylaxis: Pharmacologic Prophylaxis ordered - Choose All That Apply Any of the Below Risk Factors Present?: Yes Each Factor Represents 1 point: Obesity (BMI >25) Other Risk Factors: Yes Each Risk Factor Represents 2 Points: Age 61-74 years Other congenital or acquired thrombophilia - If yes, enter type in comment: No Thrombosis Risk Factor Assessment Total Risk Factor Score: 3 Thrombosis Risk Factor Assessment Level: Moderate Risk Assessment and Plan Assessment: Possible unstable angina Slightly elevated d-dimer with VQ scan showing low probability for PE History of loop recorder placement GERD Hypertension Hyperlipidemia Mitral valve prolapse Obstructive sleep apnea on CPAP Hypothyroidism Migraine headaches Degenerative disc disease Macular degeneration Chronic constipation Anxiety/depression Plan: Patient will continue on telemetry monitoring. Serial EKG and troponins. Started on heparin drip. Cardiology was consulted. Due to elevated troponin level VQ scan was done patient patient is allergic to iodine-containing products. Continue with home medications and follow-up closely. Prognosis guarded. Discussed with the patient and her family at bedside in detail. Time with Patient: Greater than 30
[2020-02-23] MEDS: NITROGLYCERIN OINT 1 INCH/GM PACKET TOPICAL SCH (01:01)
[2020-02-23] MEDS: oxyCODONE-APAP 5-325MG 1 EACH TAB PO PRN ×2 (03:41→12:54)
[2020-02-23] MEDS: ONDANSETRON 4 MG/2 ML VIAL IVP PRN (04:45)
[2020-02-23] MEDS ORDERED: LEVOTHYROXINE 75 MCG TAB PO SCH (06:30)
[2020-02-23 06:46] LABS: Basophils % (A) 1 %; Eosinophils # (A) 0.2 k/uL (0-0.7); Eosinophils % (A) 2 %; HCT 41.6 % (34.0-46.0); HGB 13.9 gm/dL (11.4-16.0); Lymphocytes # (A) 1.5 k/uL (1.0-4.8); Lymphocytes % (A) 21 %; MCH 32.5 pg (25.0-35.0); MCHC 33.4 g/dL (31.0-37.0); MCV 97.5 fL (80.0-100.0); Mean Platelet Volume 8.9; Monocytes # (A) 0.4 k/uL (0-1.0); Monocytes % (A) 5 %; Neutrophils # (A) 5.1 k/uL (1.3-7.7); Neutrophils % (A) 70 %; Platelet Count 197 k/uL (150-450); RBC 4.27 m/uL (3.80-5.40); RDW 12.5 % (11.5-15.5); WBC 7.3 k/uL (3.8-10.6)
[2020-02-23 07:12] LABS: African American GFR (CKD) >90 (>60 ml/min/1.73 sqM); Anion Gap 4 mmol/L; Blood Urea Nitrogen 12 mg/dL (7-17); Calcium 9.2 mg/dL (8.4-10.2); Carbon Dioxide 27 mmol/L (22-30); Chloride 107 mmol/L (98-107); Glucose 131 mg/dL (74-99); Non-African American GFR(CKD) >90 (>60 ml/min/1.73 sqM); Potassium 4.6 mmol/L (3.5-5.1); Sodium 138 mmol/L (137-145)
[2020-02-23] MEDS: METOPROLOL SUCCINATE (ER) 50 MG TAB.ER.24H PO SCH (08:03)
[2020-02-23] MEDS: VIT A,C & E-LUTEIN-MINERALS 1 EACH TAB PO SCH (08:03)
[2020-02-23 08:09] VITALS: BP 149/83; PULSE 73; RESP 18; TEMP 97.6
[2020-02-23] MEDS ORDERED: ASPIRIN 81 MG PO SCH (09:00)
[2020-02-23] MEDS ORDERED: LOSARTAN 25 MG TAB PO SCH (09:00)
[2020-02-23] MEDS ORDERED: SENNOSIDES 8.6 MG TAB PO SCH (09:00)
--- NOTE | 2020-02-23 11:14 | ECHOF ---
Referral Reason:chest pain MEASUREMENTS -------- HEIGHT: 162.6 cm WEIGHT: 80.7 kg BP: RVIDd: 2.6 cm (< 3.3) IVSd: 1.1 cm (0.6 - 1.1) LVIDd: 4.4 cm (3.9 - 5.3) LVPWd: 1.5 cm (0.6 - 1.1) EDV(Teich): 89 ml IVSs: 1.2 cm LVIDs: 3.4 cm LVPWs: 1.6 cm %IVS Thck: 11 % ESV(Teich): 48 ml EF(Teich): 47 % %FS: 23 % SV(Teich): 42 ml LA Diam: 3.8 cm (2.7 - 3.8) Ao Diam: 3.4 cm (2.0 - 3.7) AV Cusp: 1.6 cm (1.5 - 2.6) LA Diam: 4.3 cm (2.7 - 3.8) MV EXCURSION: 16.095 mm (> 18.000) MV EF SLOPE: 42 mm/s (70 - 150) EPSS: 0.5 cm TR Vmax: 2.31 m/s TR maxP.27 mmHg RAP: 5.00 mmHg RVSP: 26.27 mmHg FINDINGS -------- Sinus rhythm. This was a technically good study. LV size, wall thickness and systolic function are normal, with an EF greater than 55%. The left jamaal tricular size is normal. The right ventricle is normal in size. The left atrial size is normal. The right atrial size is normal. The aortic valve is trileaflet, and appears structurally normal. No aortic stenosis or regurgitation. Trace to mild aortic regurgitation. Mild mitral annular calcification present. Mild mitral regurgitation is present. No regurgitation noted Right ventricular systolic pressure is normal at < 35 mmHg. There is no pulmonic regurgitation present. The aortic root size is normal. There is no pericardial effusion. CONCLUSIONS -------- 1. LV size, wall thickness and systolic function are normal, with an EF greater than 55%. 2. The left ventricular size is normal. 3. The right ventricle is normal in size. 4. The left atrial size is normal. 5. The right atrial size is normal. 6. Trace to mild aortic regurgitation. 7. Mild mitral annular calcification present. 8. Mild mitral regurgitation is present. 9. No regurgitation noted 10. Right ventricular systolic pressure is normal at < 35 mmHg. 11. There is no pulmonic regurgitation present. CHEMICAL TECHNICIAN: Arlene Alexandra RDCS
[2020-02-23] MEDS ORDERED: diphenhydrAMINE 25 MG CAP PO PRN (12:03)
--- NOTE | 2020-02-23 13:36 | P.PN ---
Subjective HISTORY OF PRESENTING ILLNESS This is a pleasant 69 year old female past medical history significant for hypertension, PAC's, frequent palpitations and loop recorder implantation. She follows in the office with Dr. Miles. Her symptoms have improved since admission. She denies chest pain, shortness of breath, dizziness or palpitations. Blood pressure 149/83 heart rate 73 afebrile and maintaining oxygen saturation on room air. VQ scan low probability for PE. Echocardiogram revealed preserved LV systolic function with normal EF. Laboratory data reviewed and unremarkable. PHYSICAL EXAMINATION CONSTITUTIONAL: No apparent distress. HEENT: Head is normocephalic. Pupils are equal, round. Sclerae anicteric. Mucous membranes of the mouth are moist. No JVD. No carotid bruit. CHEST EXAMINATION: Lungs are clear to auscultation. No chest wall tenderness is noted on palpation or with deep breathing. HEART EXAMINATION: Regular rate and rhythm. S1, S2 heard. No murmurs, gallops or rub. EXTREMITIES: 2+ peripheral pulses, no lower extremity edema and no calf tenderness. ASSESSMENT Chest pain and shortness of breath. Atypical for angina. Recent normal catheterization. An acute event has been ruled out. Hypertension PLAN Stable for discharge from a cardiac perspective. Follow up with Dr. Miles upon discharge. Nurse Practitioner note has been reviewed, I agree with a documented findings and plan of care. Patient was seen and examined. Objective - Vital Signs Vital signs: Vital Signs Temp 97.6 F 02/23/20 07:48 Pulse 73 02/23/20 09:00 Resp 18 02/23/20 09:00 BP 149/83 02/23/20 07:48 Pulse Ox 100 02/23/20 07:48 Intake & Output 02/22/20 02/23/20 02/23/20 18:59 06:59 18:59 Intake Total 240 240 Balance 240 240 Weight 80.739 kg Intake: Oral 240 240 Other: Voiding Method Toilet Toilet # Voids 1 2 - Labs CBC & Chem 7: 02/23/20 06:15 02/23/20 06:15 Labs: Abnormal Lab Results - Last 24 Hours (Table) 02/22/20 02/23/20 02/23/20 Range/Units 23:32 06:15 06:15 APTT 48.4 H 62.0 H (22.0-30.0) sec Glucose 131 H (74-99) mg/dL
--- NOTE | 2020-02-23 17:06 | CONS ---
CONSULTATION CHIEF COMPLAINT: Chest pain. DATE OF CONSULTATION: 02/22/2020 This is 69-year-old lady with history of hypertension, hypothyroidism, cardiac arrhythmia, who presented to hospital complaining of chest pain. She describes it as precordial chest pressure, mild to moderate intensity that radiated to her back. She has frequent PVCs and has palpitations as a result. She does not have leg edema, shortness of breath, PND or orthopnea. EKG shows sinus rhythm with frequent PVCs. I reviewed her old records. She had a cardiac catheterization in September that showed normal coronary arteries. On this admission, she had a D-dimer done was mildly elevated. Patient was to a V/Q scan. PAST MEDICAL HISTORY: Significant for cardiac arrhythmia, hypertension, hypothyroidism. MEDICATIONS: At home included Toprol-XL 50 b.i.d., Cozaar 25 daily, Synthroid, Pepcid, aspirin, Elavil, Xanax, and Percocet. ALLERGIES: IV DYE, COBALT, FANG, SHELLFISH, CODEINE, MORPHINE, and LEXISCAN. FAMILY HISTORY: Negative for premature coronary artery disease. SOCIAL HISTORY: Negative for smoking, EtOH abuse, or drug abuse. REVIEW OF SYSTEMS: HEENT: Unremarkable. CARDIAC: As described above. RESPIRATORY: As described above. GI: Negative. GENITOURINARY: Negative. ALLERGY/IMMUNOLOGY: Negative. SKIN: Negative. MUSCULOSKELETAL: Significant for arthritis. PSYCHOSOCIAL: Negative. ENDOCRINE: Negative. DERM: Negative. CONSTITUTIONAL: Negative. ONCOLOGICAL: Negative. RETAIL DIRECTOR: Negative. Rest of the system review is not relevant. PHYSICAL EXAM: Patient is afebrile. Blood pressure is elevated. There is no jugular venous distention. Carotid upstroke is diminished. There is no bruit. Chest exam reveals good air entry bilaterally. Heart exam reveals first and second heart sounds. No gallop. Has a systolic murmur at the apex. Abdomen is soft. Exam of extremities did not reveal any edema. Peripheral pulses are felt. ASSESSMENT: Precordial chest pain, sharp, atypical probably noncardiac. Will follow the V/Q scan results. The patient had recent cardiac catheterization and does not require any further evaluation for coronary artery disease. I will obtain a 2D echo on her primarily to look at the aortic root and pericardium. If this workup is negative, she can be discharged home and optimize antihypertensive therapy. MMODL / IJN: [id number] /
== END 2020-02-23 14:30 | disposition home or self-care (01) ==
LOC: EC 10:30 → 3NCARDOBS 12:52
PROVIDERS: ADMIT Internal Medicine; ATTEND Internal Medicine
DX: R07.89 Other chest pain (principal); E03.9 Hypothyroidism, unspecified; E78.5 Hyperlipidemia, unspecified; F32.9 Major depressive disorder, single episode, unspecified; F41.9 Anxiety disorder, unspecified; G43.909 Migraine, unspecified, not intractable, without status migrainosus; G47.33 Obstructive sleep apnea (adult) (pediatric); H35.30 Unspecified macular degeneration; I10 Essential (primary) hypertension; I34.1 Nonrheumatic mitral (valve) prolapse; I48.0 Paroxysmal atrial fibrillation; I49.3 Ventricular premature depolarization; K21.9 Gastro-esophageal reflux disease without esophagitis; K59.09 Other constipation; Z79.82 Long term (current) use of aspirin; Z79.899 Other long term (current) drug therapy; Z90.710 Acquired absence of both cervix and uterus; Z91.041 Radiographic dye allergy status; Z79.890 Hormone replacement therapy; Z79.891 Long term (current) use of opiate analgesic; Z88.8 Allergy status to other drugs, medicaments and biological substances; Z88.5 Allergy status to narcotic agent; Z91.013 Allergy to seafood; Z91.048 Other nonmedicinal substance allergy status; Z98.1 Arthrodesis status; Z98.42 Cataract extraction status, left eye; R79.89 Other specified abnormal findings of blood chemistry; R06.89 Other abnormalities of breathing
CPT/HCPCS: 93005 ×2; 96375; 96376 ×2; 96372; 96374; 99285; 36415; 93306; 85379; 83880; 80053; 80048; 83735; 84484; 85025 ×2; 85610; 85730 ×2; 71046; 76705; 78582; G0378 ×2; A9540; A9567; J2405 ×2; J3010; J1650; J1170; J1644

== ENCOUNTER → 2020-03-28 | Outpatient (CLI) | payer MEDICARE ==
--- NOTE | 2020-03-29 13:02 | USB ---
Reason for exam: additional evaluation requested from abnormal screening. History: Patient is postmenopausal. Family history of breast cancer in maternal aunt at age 84. Benign left US cyst aspiration of the left breast, November 25, 2006. Benign US left guided mammotome of the left breast, November 25, 2006. Benign US left guided mammotome of the left breast, November 25, 2006. Ultrasound-guided cyst aspiration of the right breast, April 26, 2000. Benign ultrasound-guided core biopsy of the right breast, April 26, 2000. Benign cyst aspiration of the right breast, March 25, 1998. Benign excisional biopsy of the right breast, March 25, 1998. Cyst aspiration of the left breast. 3 cyst aspirations of the right breast. Core biopsy of the right breast. 2 excisional biopsies of the right breast. Took hormonal contraceptives for 10 months beginning at age 17. Took estrogen for 17 years beginning at age 45. Physical Findings: Nurse Summary: numerous surgeries to right axilla, pain always, increased pain lately (nurse spring). US Breast Workup Limited RT Right limited breast ultrasound including focal area of concern, retroareolar and axilla demonstrates no cystic or solid lesion seen. These results were verbally communicated with the patient and result sheet given to the patient on 03/28/20. ASSESSMENT: Negative, BI-RAD 1 RECOMMENDATION: Return to routine screening mammogram schedule for both breasts.
== END | disposition home or self-care (01) ==
LOC: RADUSWWP 14:55
PROVIDERS: ATTEND Family Medicine
DX: R92.8 Other abnormal and inconclusive findings on diagnostic imaging of breast (principal)

== ENCOUNTER 2020-04-01 07:27 | Day surgery (SDC) | payer MEDICARE ==
[2020-03-31 08:57] VITALS: BMI 30.2
[~2020-04-01 07:27] MED LIST changes: -ALPRAZolam 0.25 MG TAB PO PRN; -ALPRAZolam 0.5 MG TAB PO PRN; -ASPIRIN 325 MG TAB PO ONE; -ATORVASTATIN 80 MG TAB PO ONE; +LACTATED RINGERS 1,000 ML IV SCH; -NITROGLYCERIN SL TABS 0.4 MG TAB SUBLINGUAL PRN; -SODIUM CHLORIDE 0.9% 1,000 ML in EMPTY BAG 1 BAG IV ONE
[2020-04-01] MEDS ORDERED: LIDOCAINE 1% (10MG/ML) FOR IV START INTRADERMA ONE (07:50)
[2020-04-01 08:02] VITALS: TEMP 97.4
[2020-04-01] MEDS ORDERED: PROPOFOL 10 MG/ML 20 ML VIAL IV ONE (08:17)
--- NOTE | 2020-04-01 08:50 | P.PCN ---
Date of Procedure: 04/01/20 Procedure(s) Performed: Brief history: Patient is a pleasant 69-year-old white female scheduled for an elective upper endoscopy as well as colonoscopy as a part of evaluation of abdominal pain, intermittent dysphagia to solids and change in bowel habits for the last few months duration. She has long-standing history of GERD and has been on Nexium in the past with good relief in his symptoms Procedure performed: Esophagogastroduodenoscopy with biopsy Colonoscopy Preoperative diagnosis: GERD/intermittent dysphagia to solids Change in bowel habits Anesthesia: MAC Procedure: After informed consent was obtained from the patient was brought into the endoscopy unit and IV sedation was administered by anesthesia under continuous monitoring. Initially upper endoscopy was done. The Olympus GF 160 video endoscope was inserted inserted into the mouth and esophagus intubated without any difficulty and was gradually advanced into the stomach and duodenum and carefully examined. The bulb and second part of the duodenum appeared normal. The scope was then withdrawn into the stomach adequately insufflated with air and upon careful examination the antrum had mild gastritis and biopsies were done from this area. The body, cardia and fundus appeared normal. The scope was then withdrawn into the esophagus. Small sliding type hiatal hernia noted. The GE junction was located at 40 cm to the incisors. It appeared regular with no erythema erosions or ulcerations. Rest of the esophagus appeared normal. Abscesses were done from the mid and distal esophagus. Patient tolerated the procedure well. At this time the patient continued to remain sedation. Initial digital rectal examination was normal. Olympus CF 160 video colonoscope was then inserted into the rectum and gradually advanced to the cecum without any difficulty. Careful examination was performed as the scope was gradually being withdrawn. The prep was excellent. The cecum, ascending colon, transverse colon, descending colon, sigmoid colon and rectum appeared normal. Retroflexion was performed in the rectum and no lesions were noted. Patient tolerated the procedure well. Impression: 1. Upper endoscopy revealed small hiatal hernia and mild antral gastritis 2. Colonoscopy was essentially within normal limits with no evidence of colorectal neoplasia. Recommendations: Findings of this examination were discussed with the patient as well as family. She was advised to follow with the biopsy results.. She will continue with Protonix 40 mg daily and follow antireflux measures. She can have a repeat screening colonoscopy in 10 years.
[2020-04-01 09:14] VITALS: RESP 17
[2020-04-01 09:34] VITALS: BP 145/59; PULSE 62
== END 2020-04-01 10:10 | disposition home or self-care (01) ==
LOC: ORWHC2ENDO 07:27
PROVIDERS: ATTEND Internal Medicine Gastroenterology
DX: K29.50 Unspecified chronic gastritis without bleeding (principal); K21.0 Gastro-esophageal reflux disease with esophagitis; K44.9 Diaphragmatic hernia without obstruction or gangrene; R19.4 Change in bowel habit; I48.91 Unspecified atrial fibrillation; I10 Essential (primary) hypertension; E78.5 Hyperlipidemia, unspecified; I34.1 Nonrheumatic mitral (valve) prolapse; G47.33 Obstructive sleep apnea (adult) (pediatric); G43.909 Migraine, unspecified, not intractable, without status migrainosus; F41.9 Anxiety disorder, unspecified; Z88.5 Allergy status to narcotic agent; Z91.09 Other allergy status, other than to drugs and biological substances; Z91.013 Allergy to seafood; Z99.89 Dependence on other enabling machines and devices; Z79.890 Hormone replacement therapy; Z79.899 Other long term (current) drug therapy; Z98.890 Other specified postprocedural states
CPT/HCPCS: 45378; 43239; 88305; J2704

== ENCOUNTER → 2020-04-22 | Outpatient (CLI) | payer MEDICARE | END | disposition home or self-care (01) | LOC: LABWHC1 11:12 | PROVIDERS: ATTEND Physician Assistant | DX: R00.2 Palpitations (principal) | CPT/HCPCS: 36415; 84443 ==

== ENCOUNTER → 2020-04-28 | Outpatient (CLI) | payer MEDICARE ==
--- NOTE | 2020-04-28 13:19 | US ---
EXAMINATION TYPE: US abdomen comp/pelvis limited DATE OF EXAM: 04/28/2020 COMPARISON: US 02/22/2020 CLINICAL HISTORY: R10.84 ABD PAIN. Generalized abd pain and bloating; intermittent pelvic pain and in continence; spine surgery; hysterectomy EXAM MEASUREMENTS: Liver Length: 15.0 cm Gallbladder Wall: 0.3 cm CBD: 0.4 cm Spleen: 7.9 cm Right Kidney: 10.8 x 6.5 x 4.0 cm Left Kidney: 9.8 x 6.1 x 5.5 cm Post Void Residual: 10.1 mL Pancreas: hyperechoic Liver: no masses seen Gallbladder: wnl, tortuous neck CBD: wnl Spleen: hyperechoic vessel diamond noted at hilum Right Kidney: No hydronephrosis or masses seen Left Kidney: No hydronephrosis or masses seen Upper IVC: wnl Abd Aorta: ectatic appearance, intimal wall thickening noted mid and distally, size is wnl Bladder: wnl Bilateral Jets Seen not seen Normal Post Void Residual (normal less than 50ml) yes, normal post void volume. IMPRESSION: 1. Normal abdomen ultrasound. 2. Portion of the pelvis included within the [id number] is unremarkable.
== END | disposition home or self-care (01) ==
LOC: RADUSWWP 08:13
PROVIDERS: ATTEND Family Medicine
DX: R10.84 Generalized abdominal pain (principal)
CPT/HCPCS: 76700; 76857

== ENCOUNTER → 2021-02-10 | Outpatient (CLI) | payer MEDICARE ==
[2021-02-11 05:50] LABS: African American GFR (CKD) 65.2 (60.0-200.0); Non-African American GFR(CKD) 56.2 (60.0-200.0)
== END | disposition home or self-care (01) ==
LOC: LABWHC1 14:48
PROVIDERS: ATTEND Psychiatry & Neurology Pain Medicine
DX: M54.5 Low back pain (principal)
CPT/HCPCS: 36415; 82565; 84520

== ENCOUNTER → 2021-02-15 | Outpatient (CLI) | payer MEDICARE ==
--- NOTE | 2021-02-15 12:41 | CT ---
EXAMINATION TYPE: CT lumbar spine w con DATE OF EXAM: 02/15/2021 COMPARISON: 02/20/2017 HISTORY: 70-year-old female Low back pain radiating into right leg. TECHNIQUE: Contiguous axial scanning of the lumbar spine performed with IV Contrast, patient injected with 100ml mL of Isovue 300. Coronal/sagittal reconstructions performed. CT DLP: 961 mGycm Automated exposure control for dose reduction was used. FINDINGS: There is a fluid collection within the right L5 laminectomy bed and posterior paraspinal region measu ring 7.5 cm craniocaudal by 3.5 cm wide by 2.4 cm AP. There is thin peripheral enhancement and it is either stable to slightly increased in size compared to the previous noncontrast 2016 study. Right-sided posterior lumbar fusion at L5-S1. There is satisfactory interbody ankylosis. Hypertrophic facet arthropathy mid to lower lumbar spine with similar moderate to advanced degenerati ve disc disease L3-L4 and L4-L5. Very minimal mild spinal canal narrowing and L1-L2, L2-L3, L3-L4 secondary to disc bulging and ligame ntum flavum thickening. On the right, changes result in mild to moderate neural foraminal narrowing at L3-L4 and mild at jg tional levels. Possible moderate narrowing at L5-S1. On the left, changes result in a similar moderate to severe narrowing at L3-L4 in variable mild to mo derate at additional levels. IMPRESSION: 1. OVERALL APPEARANCE IS RELATIVELY SIMILAR TO 02/20/2017 WITH RIGHT POSTERIOR LUMBAR FUSION AT L5-S1 A ND CORRESPONDING LAMINECTOMIES. THERE IS REDEMONSTRATION OF A FLUID COLLECTION IN THE LAMINECTOMY BED , RELATIVELY SIMILAR IN SIZE TO SLIGHTLY LARGER MEASURING UP TO 7.5 CM. POSSIBLE CHRONIC POSTOPERATIV E SEROMA. CORRELATE TO EXCLUDE INFECTIVE FLUID. 2. SIMILAR POSSIBLE ENCROACHMENT ON TO THE RIGHT L5-S1 NEURAL FORAMEN. METAL HARDWARE ARTIFACT LIMITS ASSESSMENT. MODERATE TO SEVERE LEFT NEUROFORAMINAL STENOSIS AT L3-L4 IS ALSO SIMILAR. 3. MODERATE TO ADVANCED DEGENERATIVE DISC DISEASE AND HYPERTROPHIC FACET ARTHROPATHY ABOVE THE FUSION AT L2-L3 AND L3-L4. DISC BULGES LIKELY CONTRIBUTE TO MILD SPINAL CANAL NARROWING AT THESE LEVELS.
== END | disposition home or self-care (01) ==
LOC: RADCTMAIN 02-10 14:18
PROVIDERS: ATTEND Psychiatry & Neurology Neurology
DX: M47.896 Other spondylosis, lumbar region (principal); M46.96 Unspecified inflammatory spondylopathy, lumbar region
CPT/HCPCS: 82565; 84520; 72132; 36415; Q9967

== ENCOUNTER 2021-03-17 10:12 | Day surgery (SDC) | payer MEDICARE ==
[2021-03-15 16:19] VITALS: BMI 28.3
[2021-03-17 10:34] VITALS: RESP 16; TEMP 96.9
[2021-03-17] MEDS ORDERED: LIDOCAINE 1% INJ 10MG/ML (20 ML MDV) ONE (11:02)
[2021-03-17] MEDS ORDERED: PROPOFOL 10 MG/ML 20 ML VIAL IV ONE (11:02)
--- NOTE | 2021-03-17 11:26 | P.PCN ---
Date of Procedure: 03/17/21 Procedure(s) Performed: BRIEF HISTORY: Patient is a 70-year-old, pleasant, scheduled for an upper endoscopy as a part of evaluation of intermittent dysphagia to solids and long- standing history of GERD.. PROCEDURE PERFORMED: Esophagogastroduodenoscopy. PREOPERATIVE DIAGNOSIS: .long-standing history of GERD IV sedation per anesthesia. PROCEDURE: After informed consent was obtained, the patient was brought into the endoscopy unit. IV sedation was administered by Anesthesia under continuous monitoring. Initially the Olympus GIF-140 video endoscope was inserted into the mouth. Esophagus intubated without any difficulty. It was gradually advanced into the stomach and duodenum and carefully examined. The bulb and the second part of the duodenum appeared normal. The scope at this time was withdrawn to the stomach, adequately insufflated with air, and upon careful examination, mucosa of the antrum, body, cardia and the fundus appeared normal. The scope was then withdrawn into the esophagus. The GE junction was located at 41 cm from the incisors. The esophagus appeared normal. There were no erosions or ulcerations seen and the patient tolerated the procedure well. IMPRESSION: 1. Normal-appearing esophagus with no evidence of esophagitis or esophageal stricture. RECOMMENDATIONS: The findings of this examination were discussed with the patient as well as a family. She was advised to continue with Protonix 40 mg daily and continue to follow antireflux measures..
[2021-03-17 11:45] VITALS: BP 138/73; PULSE 68
== END 2021-03-17 12:15 | disposition home or self-care (01) ==
LOC: ORWHC2ENDO 10:12
PROVIDERS: ATTEND Internal Medicine Gastroenterology
DX: R13.10 Dysphagia, unspecified (principal); K21.9 Gastro-esophageal reflux disease without esophagitis; I10 Essential (primary) hypertension; E78.5 Hyperlipidemia, unspecified; J44.9 Chronic obstructive pulmonary disease, unspecified; G47.33 Obstructive sleep apnea (adult) (pediatric); E07.9 Disorder of thyroid, unspecified; I48.91 Unspecified atrial fibrillation; I34.1 Nonrheumatic mitral (valve) prolapse; Z79.82 Long term (current) use of aspirin; Z79.899 Other long term (current) drug therapy; Z79.890 Hormone replacement therapy
CPT/HCPCS: 43235; J2001; J2704

== ENCOUNTER → 2021-06-07 | Outpatient (CLI) | payer MEDICARE ==
--- NOTE | 2021-06-07 09:54 | MM ---
Reason for exam: clinical finding. Last mammogram was performed 1 year and 4 months ago. History: Patient is postmenopausal. Family history of breast cancer in maternal aunt at age 84. Benign left US cyst aspiration of the left breast, November 25, 2006. Benign US left guided mammotome of the left breast, November 25, 2006. Benign US left guided mammotome of the left breast, November 25, 2006. Ultrasound-guided cyst aspiration of the right breast, April 26, 2000. Benign ultrasound-guided core biopsy of the right breast, April 26, 2000. Benign cyst aspiration of the right breast, March 25, 1998. Benign excisional biopsy of the right breast, March 25, 1998. Cyst aspiration of the left breast. 3 cyst aspirations of the right breast. Core biopsy of the right breast. 2 excisional biopsies of the right breast. Took hormonal contraceptives for 10 months beginning at age 17. Took estrogen for 17 years beginning at age 45. Physical Findings: Nurse Summary: 1cm nodule in the left breast at 7 o'clock and 10 o'clock (nurse dw). MG 3D Diag Mammo W/Cad BRENDEN Bilateral CC and MLO view(s) were taken. Prior study comparison: February 11, 2020, bilateral MG 3d screening mammo w/cad. September 04, 2017, bilateral MG 3d diag mammo w/cad BRENDEN. The breast tissue is heterogeneously dense. This may lower the sensitivity of mammography. Previous mammotome biopsy in the left breast x 2. There is chronic nodularity in the left breast. Two palpable markers medial left breast, one of which seems to correspond to a loop recorder which has migrated into the field of view. These results were verbally communicated with the patient and result sheet given to the patient on 06/07/21. ASSESSMENT: Incomplete: need additional imaging evaluation, BI-RAD 0 RECOMMENDATION: Ultrasound of the left breast.
--- NOTE | 2021-06-07 09:55 | USB ---
Reason for exam: additional evaluation requested from abnormal screening. History: Patient is postmenopausal. Family history of breast cancer in maternal aunt at age 84. Benign left US cyst aspiration of the left breast, November 25, 2006. Benign US left guided mammotome of the left breast, November 25, 2006. Benign US left guided mammotome of the left breast, November 25, 2006. Ultrasound-guided cyst aspiration of the right breast, April 26, 2000. Benign ultrasound-guided core biopsy of the right breast, April 26, 2000. Benign cyst aspiration of the right breast, March 25, 1998. Benign excisional biopsy of the right breast, March 25, 1998. Cyst aspiration of the left breast. 3 cyst aspirations of the right breast. Core biopsy of the right breast. 2 excisional biopsies of the right breast. Took hormonal contraceptives for 10 months beginning at age 17. Took estrogen for 17 years beginning at age 45. US Breast Limited LT Left limited breast ultrasound including focal area of concern, retroareolar and axilla demonstrates no finding at patient palpated BB at 7 o'clock and loop recorder seen at 9 o'clock at patient palpable, no surrounding fluid. Scanned 6-9 o'clock. These results were verbally communicated with the patient and result sheet given to the patient on 06/07/21. ASSESSMENT: Benign, BI-RAD 2 RECOMMENDATION: Routine screening mammogram of both breasts in 1 year.
== END | disposition home or self-care (01) ==
LOC: RADMAMWWP 07:48
PROVIDERS: ATTEND Family Medicine
DX: N63.20 Unspecified lump in the left breast, unspecified quadrant (principal); R92.8 Other abnormal and inconclusive findings on diagnostic imaging of breast
CPT/HCPCS: 77066; 76642; G0279; 77062

== ENCOUNTER 2021-08-05 13:39 | Emergency (ER) | payer MEDICARE ==
[2021-08-05 13:48] VITALS: RESP 20; TEMP 98.6
--- NOTE | 2021-08-05 15:10 | ED ---
General Adult HPI - General Chief complaint: Upper Respiratory Infection Stated complaint: Cough, Covid+ Time Seen by Provider: 08/05/21 13:49 Source: patient Mode of arrival: ambulatory Limitations: no limitations - History of Present Illness Initial comments: 71-year-old female with a copy. Past medical history presents to the emergency room for a chief complaint of antibody infusion. Patient states that she developed symptoms 4 days ago of COVID-19 and then tested positive yesterday. She was called today and told by her doctor to come get the antibody infusion. Patient is not fully vaccinated. Patient has a headache congestion and fatigue. Minimal shortness of breath. No chest pain.Patient has no other complaints at this time including shortness of breath, chest pain, abdominal pain, nausea or vomiting, headache, or visual changes. - Related Data Home Medications Medication Instructions Recorded Confirmed ALPRAZolam [Xanax] 0.25 mg PO TID PRN 06/02/14 03/15/21 Amitriptyline HCl [Elavil] 10 mg PO HS 06/02/14 03/15/21 oxyCODONE-APAP 5-325MG [Percocet 1 tab PO QID PRN 06/02/14 03/17/21 5-325 mg] Aspirin [Adult Low Dose Aspirin EC] 81 mg PO QAM 11/19/18 03/15/21 Vit C/E/Zn/Coppr/Lutein/Zeaxan 1 cap PO BID 11/19/18 03/15/21 [Preservision Areds 2 Softgel] ALPRAZolam [Xanax] 0.5 mg PO HS PRN 08/25/19 03/15/21 Levothyroxine Sodium [Synthroid] 37.5 mcg PO QAM 08/25/19 03/15/21 Metoprolol Succinate [Toprol XL] 50 mg PO BID 08/25/19 03/15/21 Sennosides [Senokot] 8.6 mg PO DAILY 08/25/19 03/15/21 Carboxymethylcellulose Sodium 1 drop BOTH EYES QID PRN 09/25/19 03/15/21 [Refresh Tears] Losartan Potassium [Cozaar] 25 mg PO QAM 02/22/20 03/15/21 Propafenone HCl 150 mg PO BID 03/31/20 03/15/21 Pantoprazole Sodium 20 mg PO BID 03/15/21 03/15/21 Allergies Allergy/AdvReac Type Severity Reaction Status Date / Time Iodine and Iodide Containing Allergy Severe Rash/Hives, Verified 08/05/21 13:48 Produc Dyspnea, elevated blood pressure cobalt Allergy Unknown allergy Verified 08/05/21 13:48 testing positive nickel Allergy Unknown Allergy Verified 08/05/21 13:48 testing positive shellfish derived [Shellfish] Allergy Unknown Rash, Verified 08/05/21 13:48 dyspnea, elevated bloodpressure codeine Allergy Nausea & Verified 08/05/21 13:48 Vomiting COVID-19 vaccine, mRNA, Allergy Rash/Hives Verified 08/05/21 15:10 [id number], morphine Allergy VOMITING(SE Verified 08/05/21 13:48 JESI) regadenoson [From Lexiscan] Allergy Rash/Hives. Verified 08/05/21 13:48 Review of Systems ROS Statement: Those systems with pertinent positive or pertinent negative responses have been documented in the HPI. ROS Other: All systems not noted in ROS Statement are negative. Past Medical History Past Medical History: Atrial Fibrillation, Eye Disorder, GERD/Reflux, Hyperlipidemia, Hypertension, Mitral Valve Prolapse (MVP), Osteoarthritis (OA), Sleep Apnea/CPAP/BIPAP, Thyroid Disorder Additional Past Medical History / Comment(s): DDD, STENOSIS & CURVATURE OF SPINE., MIGRAINE HEADACHES, MACULAR DEGENERATION-receives rt eye injections every 4 weeks, CHRONIC CONSTIPATION., BLADDER LEAKAGE., C PAP MACHINE, cataracts History of Any Multi-Drug Resistant Organisms: None Reported Past Surgical History: Back Surgery, Hysterectomy, Orthopedic Surgery, Tonsillectomy Additional Past Surgical History / Comment(s): RIGHT SHOULDER SURGERY X5 WITH ROTATOR CUFF REPAIR AND REVERSE SHOULDER WITH RODS., MULTIPLE BACK SURGERIES WITH CAGE & PLATE. , LEFT KNEE ARTHROSCOPIC, RIGHT CARPAL TUNNEL RELEASE., INJECTIONS FOR BLADDER LEAKAGE. left eye cataract removal,pain clinic procedures, COLONOSCOPY, EGD Past Anesthesia/Blood Transfusion Reactions: Motion Sickness, Postoperative Nausea & Vomiting (PONV) Past Psychological History: Anxiety Smoking Status: Never smoker Past Alcohol Use History: None Reported Past Drug Use History: None Reported - Past Family History Mother Family Medical History: No Reported History Brother(s) Family Medical History: Deep Vein Thrombosis (DVT), Rheumatoid Arthritis (RA) BROTHER Family Medical History: Cancer Additional Family Medical History / Comment(s): 2ND BROTHER OF LUNG CANCER General Exam Limitations: no limitations Course Vital Signs 08/05/21 13:45 Temperature 98.6 F Pulse Rate 82 Respiratory 20 Rate Blood Pressure 166/74 O2 Sat by Pulse 96 Oximetry Medical Decision Making - Medical Decision Making Patient qualifies for antibody infusion. Patient is stable for outpatient follow-up. She will return here for any worsening symptoms. Disposition Clinical Impression: COVID-19 Disposition: HOME SELF-CARE Condition: Good Instructions (If sedation given, give patient instructions): Coronavirus Disease 2019 (COVID-19) Additional Instructions: Please follow-up with your doctor in one to 2 days. Return to the emergency room for any worsening symptoms. Is patient prescribed a controlled substance at d/c from ED?: No Referrals: Uzair Cheung DO [Primary Care Provider] - 1-2 days Time of Disposition: 15:17
[2021-08-05] MEDS ORDERED: SODIUM CHLORIDE 0.9% 50 ML IVPB ONE (15:15)
[2021-08-05] MEDS ORDERED: SOTROVIMAB (EUA) 500 MG in SODIUM CHLORIDE 0.9% 100 ML IVPB ONE (15:15)
[2021-08-05 16:16] VITALS: BP 154/72; PULSE 68
== END 2021-08-05 17:52 | disposition home or self-care (01) ==
LOC: EC 13:39
DX: U07.1 COVID-19 (principal); I48.91 Unspecified atrial fibrillation; I10 Essential (primary) hypertension; M19.90 Unspecified osteoarthritis, unspecified site; K21.9 Gastro-esophageal reflux disease without esophagitis; E07.9 Disorder of thyroid, unspecified; Z88.8 Allergy status to other drugs, medicaments and biological substances; Z91.048 Other nonmedicinal substance allergy status; Z91.013 Allergy to seafood; Z88.5 Allergy status to narcotic agent; Z79.899 Other long term (current) drug therapy; Z79.82 Long term (current) use of aspirin; Z79.890 Hormone replacement therapy
CPT/HCPCS: 99284; 96360; Q0247

== ENCOUNTER 2022-02-07 06:01 | Day surgery (SDC) | payer MEDICARE ==
[~2022-02-07 06:01] MED LIST changes: +CYCLOPENTOLATE 1% OPHTH SOLN 2 ML BTL OP PRN; +PHENYLEPHRINE 2.5% OPHTH DRP 2ML OP PRN; +TETRACAINE 0.5% OPHTH (PF) DROPS 4 ML BTL OP PRN
[2022-02-07] MEDS: LIDOCAINE 1% (10MG/ML) FOR IV START INTRADERMA PRN ×2 (06:49→07:12)
[2022-02-07 07:01] VITALS: TEMP 97
[2022-02-07] MEDS ORDERED: MIDAZOLAM 2 MG/2 ML VIAL ONE (07:11)
[2022-02-07] MEDS ORDERED: fentaNYL (PF) 50 MCG/ML 2 ML AMP ONE (07:11)
[2022-02-07] MEDS ORDERED: HYALURONATE SODIUM INTRAOCULAR 1 EACH SYRINGE (12MG/ML) INTRAOCULA ONE (07:25)
[2022-02-07] MEDS ORDERED: EPINEPHrine (PF) 0.3 ML in BALANCED SALT IRRIG SOLN COMB2 500 ML IRRIGATION ONE (07:25)
[2022-02-07] MEDS ORDERED: BALANCED SALT IRRIG SOLN COMB2 15 ML IRRIG.SOLN INTRAOCULA ONE (07:25)
[2022-02-07] MEDS ORDERED: LIDOCAINE 1% (PF) 10MG/ML VIAL MISCELLANE ONE (07:26)
[2022-02-07] MEDS: MOXIFLOXACIN HCL 0.5% DROPS 3 ML BTL OP PRN ×2 (07:27→07:39)
[2022-02-07] MEDS: TIMOLOL 0.5% OPHTH DROPS 5 ML BTL OP PRN ×2 (07:27→07:39)
--- NOTE | 2022-02-07 07:41 | P.OP ---
Date of Procedure: 02/07/22 Preoperative Diagnosis: NS & CS Postoperative Diagnosis: same Procedure(s) Performed: PIOL, OD Implants: [id number] 21.50 Anesthesia: MAC Surgeon: Austin Luciano Pathology: none sent Condition: stable Disposition: same day Indications for Procedure: blurry vision Operative Findings: no complications
[2022-02-07 07:48] VITALS: RESP 16
[2022-02-07 08:01] VITALS: BP 126/63; PULSE 61
--- NOTE | 2022-02-08 10:21 | OP ---
OPERATIVE REPORT DATE OF SURGERY: February 07, 2022. PROCEDURE PERFORMED: Phacoemulsification of cataract and intraocular lens implant of the right eye. SURGEON: Dr. Austin Luciano. PREOPERATIVE DIAGNOSIS: Nuclear sclerosis. Cortical sclerosis. POSTOPERATIVE DIAGNOSIS: Nuclear sclerosis. Cortical sclerosis. OPERATION: Clear cornea phacoemulsification of cataract right OD eye. ESTIMATED BLOOD LOSS: Zero. SPECIMEN TAKEN: None. NARRATIVE: After obtaining the appropriate consent, the patient was brought to the Operating Room where the patient was placed under cardiac monitoring and prepped and draped in the usual sterile manner. At the 11 o'clock position a 15 degree super sharp blade was used to create a paracentesis followed by instillation of 1% Xylocaine MPF 50:50 mix with BSS into the anterior chamber. This was followed by Amvisc to stabilize the anterior chamber. At the 9 o'clock position a self-sealing corneal flap incision was created using 2.8 mm emilee keratome. A cystotome was used to initiate a continuous tear capsulorrhexis which was completed with the Utrata forceps. A Binkhorst cannula was used to hydrodissect the lens nucleus followed by hydrodelineation. Phacoemulsification of the lens was performed utilizing phaco-chop in 12.29 seconds at 13% power. The remaining cortical material was removed using the irrigation aspiration mode followed by additional 1% Xylocaine MPF into the anterior chamber followed by viscoelastic to stabilize the capsular bag. A [employer] MX 60E 21.5 diopter posterior chamber lens was placed into the capsular bag without difficulty. The remaining viscoelastic material was removed from the anterior chamber with the irrigation/aspiration. Balanced salt solution was used to normalize the intraocular pressure. The incision was checked for watertight integrity. The patient then received two drops of 0.5% timolol followed by two drops Vigamox, was lightly patched and shielded in the usual manner. There were no complications from the procedure. The patient tolerated the procedure well and was returned to recovery in good condition. MMODL / IJN: [id number] /
== END 2022-02-07 08:17 | disposition home or self-care (01) ==
LOC: OR 06:01
PROVIDERS: ATTEND Ophthalmology
DX: H25.11 Age-related nuclear cataract, right eye (principal); H25.011 Cortical age-related cataract, right eye; H35.3231 Exudative age-related macular degeneration, bilateral, with active choroidal neovascularization; Z98.42 Cataract extraction status, left eye; Z96.1 Presence of intraocular lens; K21.9 Gastro-esophageal reflux disease without esophagitis; I34.1 Nonrheumatic mitral (valve) prolapse; Z78.0 Asymptomatic menopausal state; Z79.890 Hormone replacement therapy; Z79.899 Other long term (current) drug therapy; Z79.82 Long term (current) use of aspirin; Z83.518 Family history of other specified eye disorder; Z82.61 Family history of arthritis; Z82.49 Family history of ischemic heart disease and other diseases of the circulatory system; E03.9 Hypothyroidism, unspecified; E78.5 Hyperlipidemia, unspecified; G47.33 Obstructive sleep apnea (adult) (pediatric); I48.91 Unspecified atrial fibrillation; I13.10 Hypertensive heart and chronic kidney disease without heart failure, with stage 1 through stage 4 chronic kidney disease, or unspecified chronic kidney disease; N18.9 Chronic kidney disease, unspecified; G43.909 Migraine, unspecified, not intractable, without status migrainosus; Z91.041 Radiographic dye allergy status; Z91.013 Allergy to seafood; Z88.7 Allergy status to serum and vaccine; Z88.8 Allergy status to other drugs, medicaments and biological substances; Z91.09 Other allergy status, other than to drugs and biological substances; Z88.5 Allergy status to narcotic agent; Z80.1 Family history of malignant neoplasm of trachea, bronchus and lung
CPT/HCPCS: 66984; C1780; J2250; J0171; J3010; J2001

== ENCOUNTER 2022-03-28 17:37 | Emergency (ER) | payer MEDICARE ==
[2022-03-28 17:53] VITALS: RESP 15
--- NOTE | 2022-03-28 17:57 | ED ---
Chest Pain HPI - General Chief Complaint: Chest Pain Stated Complaint: chest pain Time Seen by Provider: 03/28/22 17:39 Source: patient, EMS Mode of arrival: EMS Limitations: no limitations - History of Present Illness Initial Comments: This patient is a 71-year-old woman who presents to have evaluation of left- sided chest pain. 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 She states that today the pain was more constant. She is not able to characterize the pain well other than the stated that it is severe at the moment. MD Complaint: chest pain -: week(s) Pain Location: left chest Pain Radiation: none Severity: severe Consistency: intermittent Improves With: nothing Worsens With: exertion Treatments Prior to Arrival: aspirin, nitroglycerin - Related Data Home Medications Medication Instructions Recorded Confirmed Amitriptyline HCl [Elavil] 10 mg PO HS 06/02/14 03/28/22 oxyCODONE-APAP 5-325MG [Percocet 1 tab PO QID PRN 06/02/14 03/28/22 5-325 mg] Aspirin [Adult Low Dose Aspirin EC] 81 mg PO DAILY 11/19/18 03/28/22 Vit C/E/Zn/Coppr/Lutein/Zeaxan 1 cap PO BID 11/19/18 03/28/22 [Preservision Areds 2 Softgel] ALPRAZolam [Xanax] 0.25 mg PO TID PRN 08/25/19 03/28/22 Metoprolol Succinate [Toprol XL] 50 mg PO BID 08/25/19 03/28/22 Carboxymethylcellulose Sodium 1 drop BOTH EYES QID PRN 09/25/19 03/28/22 [Refresh Tears] Losartan Potassium [Cozaar] 25 mg PO BID 02/22/20 03/28/22 Propafenone HCl 150 mg PO BID 03/31/20 03/28/22 Pantoprazole Sodium 20 mg PO BID 03/15/21 03/28/22 Levothyroxine Sodium [Euthyrox] 50 mcg PO DAILY 03/28/22 03/28/22 Propylene Glycol/Peg 400 [Systane 1 drop BOTH EYES QID PRN 03/28/22 03/28/22 Ultra 0.4-0.3% Eye Drp] Allergies Allergy/AdvReac Type Severity Reaction Status Date / Time Iodine and Iodide Containing Allergy Severe Rash/Hives, Verified 03/28/22 19:36 Produc Dyspnea, elevated blood pressure cobalt Allergy Unknown allergy Verified 03/28/22 19:36 testing positive nickel Allergy Unknown Allergy Verified 03/28/22 19:36 testing positive shellfish derived [Shellfish] Allergy Unknown Rash, Verified 03/28/22 19:36 dyspnea, elevated bloodpressure codeine Allergy Nausea & Verified 03/28/22 19:36 Vomiting COVID-19 vaccine, mRNA, Allergy Rash/Hives Verified 03/28/22 19:36 [id number], morphine Allergy VOMITING(SE Verified 03/28/22 19:36 JESI) regadenoson [From Lexiscan] Allergy Rash/Hives. Verified 03/28/22 19:36 Review of Systems ROS Statement: Those systems with pertinent positive or pertinent negative responses have been documented in the HPI. ROS Other: All systems not noted in ROS Statement are negative. Constitutional: Denies: fever Respiratory: Denies: cough, dyspnea Cardiovascular: Reports: chest pain. Denies: palpitations, orthopnea, edema, syncope Gastrointestinal: Denies: abdominal pain, vomiting, diarrhea Genitourinary: Denies: dysuria Musculoskeletal: Denies: back pain Skin: Denies: rash Neurological: Denies: headache, weakness, numbness EKG Findings - EKG Results: EKG: interpreted by ERMD, sinus rhythm (Rate 66 bpm), normal axis - Blocks, Logan, Hypertrophy, ST Abn: AV and intraventricular conduction: 1 AV block Chamber hypertrophy or enlargement: only voltage criteria for left ventricular hypertrophy Past Medical History Past Medical History: Atrial Fibrillation, Eye Disorder, GERD/Reflux, Hyperlipidemia, Hypertension, Mitral Valve Prolapse (MVP), Osteoarthritis (OA), Sleep Apnea/CPAP/BIPAP, Thyroid Disorder Additional Past Medical History / Comment(s): DDD, STENOSIS & CURVATURE OF SPINE., MIGRAINE HEADACHES, MACULAR DEGENERATION-receives rt eye injections every 4 weeks, CHRONIC CONSTIPATION., BLADDER LEAKAGE., C PAP MACHINE, cataracts, sciatica History of Any Multi-Drug Resistant Organisms: None Reported Past Surgical History: Back Surgery, Hysterectomy, Orthopedic Surgery, Tonsillectomy Additional Past Surgical History / Comment(s): RIGHT SHOULDER SURGERY X5 WITH ROTATOR CUFF REPAIR AND REVERSE SHOULDER WITH RODS., MULTIPLE BACK SURGERIES WITH CAGE & PLATE. , LEFT KNEE ARTHROSCOPIC, RIGHT CARPAL TUNNEL RELEASE., INJECTIONS FOR BLADDER LEAKAGE. left eye cataract removal,pain clinic procedures, COLONOSCOPY, EGD Past Anesthesia/Blood Transfusion Reactions: Motion Sickness, Postoperative Nausea & Vomiting (PONV) Past Psychological History: Anxiety Smoking Status: Never smoker Past Alcohol Use History: None Reported Past Drug Use History: None Reported - Past Family History Mother Family Medical History: No Reported History Brother(s) Family Medical History: Deep Vein Thrombosis (DVT), Rheumatoid Arthritis (RA) BROTHER Family Medical History: Cancer Additional Family Medical History / Comment(s): 2ND BROTHER OF LUNG CANCER General Exam Limitations: no limitations General appearance: alert, in no apparent distress Head exam: Present: atraumatic, normocephalic Eye exam: Present: normal appearance. Absent: scleral icterus, conjunctival injection Neck exam: Present: normal inspection Respiratory exam: Present: normal lung sounds bilaterally. Absent: respiratory distress, wheezes, rales, rhonchi, chest wall tenderness Cardiovascular Exam: Present: regular rate, normal rhythm, normal heart sounds. Absent: systolic murmur, diastolic murmur, rubs, gallop GI/Abdominal exam: Present: soft. Absent: distended, tenderness, guarding, rebound, rigid, mass Extremities exam: Present: normal inspection, normal capillary refill. Absent: pedal edema, calf tenderness Back exam: Present: normal inspection. Absent: CVA tenderness (R), CVA tenderness (L) Neurological exam: Present: alert Skin exam: Present: warm, dry, intact, normal color. Absent: rash Course Vital Signs 03/28/22 03/28/22 17:42 19:02 Temperature 97.3 F L Pulse Rate 76 58 L Respiratory 15 15 Rate Blood Pressure 156/75 127/59 O2 Sat by Pulse 96 97 Oximetry Disposition Clinical Impression: Chest pain Disposition: HOME SELF-CARE Condition: Good Instructions (If sedation given, give patient instructions): Chest Pain (ED) Is patient prescribed a controlled substance at d/c from ED?: No Referrals: Uzair Cheung DO [Primary Care Provider] - 1-2 days Tomás Miles MD [STAFF PHYSICIAN] - 1-2 days
[2022-03-28 18:22] LABS: ALT 13 U/L (4-34); AST 25 U/L (14-36); African American GFR (CKD) >90 (>60 ml/min/1.73 sqM); Albumin 3.8 g/dL (3.5-5.0); Alkaline Phosphatase 62 U/L (38-126); Amylase 56 U/L (30-110); Anion Gap 10 mmol/L; Blood Urea Nitrogen 16 mg/dL (7-17); Calcium 8.9 mg/dL (8.4-10.2); Carbon Dioxide 24 mmol/L (22-30); Chloride 106 mmol/L (98-107); Glucose 95 mg/dL (74-99); Lipase 147 U/L (23-300); Non-African American GFR(CKD) 79 (>60 ml/min/1.73 sqM); Potassium 4.5 mmol/L (3.5-5.1); Sodium 140 mmol/L (137-145); Total Bilirubin 0.3 mg/dL (0.2-1.3); Total Protein 6.4 g/dL (6.3-8.2)
[2022-03-28 18:23] LABS: HCT 39.4 % (34.0-46.0); HGB 12.8 gm/dL (11.4-16.0); MCH 32.3 pg (25.0-35.0); MCHC 32.6 g/dL (31.0-37.0); MCV 98.9 fL (80.0-100.0); Mean Platelet Volume 8.3; Platelet Count 196 k/uL (150-450); RBC 3.98 m/uL (3.80-5.40); RDW 12.7 % (11.5-15.5); WBC 5.7 k/uL (3.8-10.6)
[2022-03-28 18:26] LABS: Partial Thromboplastin Time 22.2 sec (22.0-30.0); Prothrombin Time 10.6 sec (9.0-12.0)
--- NOTE | 2022-03-28 18:40 | XR ---
EXAMINATION TYPE: XR chest 2V DATE OF EXAM: 03/28/2022 COMPARISON: None HISTORY: Chest pain TECHNIQUE: FINDINGS: Heart and mediastinum are normal. Lungs are clear. Diaphragm is normal. Bony thorax appears normal. There are chest leads. There is right shoulder prosthesis. IMPRESSION: No active cardiopulmonary disease. Normal heart.
[2022-03-28 18:49] LABS: Eosinophils # (M) 0.29 k/uL (0-0.7); Lymphocytes # (M) 2.05 k/uL (1.0-4.8); Monocytes # (M) 0.57 k/uL (0-1.0); Neutrophils # (M) 2.79 k/uL (1.3-7.7); Neutrophils % (M) 49 %; Nucleated Red Blood Cells 0 /100 WBC (0-0); RBC Morphology Normal; Total Cells Counted 100
[2022-03-28 19:03] VITALS: BP 127/59; PULSE 58; TEMP 97.3
== END 2022-03-28 22:20 | disposition home or self-care (01) ==
LOC: EC 17:37
DX: R07.9 Chest pain, unspecified (principal); K21.9 Gastro-esophageal reflux disease without esophagitis; E78.5 Hyperlipidemia, unspecified; I10 Essential (primary) hypertension; M19.90 Unspecified osteoarthritis, unspecified site; E07.9 Disorder of thyroid, unspecified; Z86.79 Personal history of other diseases of the circulatory system; Z79.890 Hormone replacement therapy; Z79.899 Other long term (current) drug therapy; Z91.041 Radiographic dye allergy status; Z91.048 Other nonmedicinal substance allergy status; Z91.013 Allergy to seafood; Z88.5 Allergy status to narcotic agent; Z88.7 Allergy status to serum and vaccine; Z88.6 Allergy status to analgesic agent; Z88.3 Allergy status to other anti-infective agents
CPT/HCPCS: 36415; 71046; 80053; 82150; 83690; 83735; 84484; 85025; 85379; 85610; 85730; 93005; 99285

== ENCOUNTER → 2022-05-11 | Outpatient (CLI) | payer MEDICARE ==
--- NOTE | 2022-05-11 09:13 | CT ---
EXAMINATION TYPE: CT lumbar spine w con CT DLP: 757.40 mGycm, Automated exposure control for dose reduction was used. DATE OF EXAM: 05/11/2022 8:35 AM COMPARISON: Lumbar spine 02/15/2021 CLINICAL INDICATION:Female, 71 years old with history of [id number] Intervertebral disc disorders wit h radi, CSF leak, intervertebral disc disorders with radiculopathy TECHNIQUE: Multiple axial images were obtained from the midportion of T11 through the sacroiliac hemal nts. Soft tissue and bone windows in coronal and sagittal planes were obtained and reviewed. IV cont rast was utilized 70 cc of Isovue-300. FINDINGS: Alignment: There are 5 lumbar type vertebral bodies within normal alignment. Bone: Multilevel disc degeneration changes throughout the spine with facet joint arthropathy. There i s disc space narrowing and vacuum disc phenomenon. Fixation hardware at L5-S1 appears intact. Discs: T12-L1: No spinal canal or neural foraminal stenosis is identified. L1-L2: Spinal canal is patent. Facet joint arthropathy with mild left neural foraminal stenosis. The right neural foramen is patent. L2-L3: Disc bulge without significant spinal canal narrowing. Facet joint arthropathy with mild neura l foraminal stenosis bilaterally. L3-L4: No spinal canal is patent neural foramen are mildly narrowed secondary to facet joint arthropa thy. L4-L5: Disc bulge without significant spinal canal stenosis. Facet joint arthropathy with moderate b ilateral neural foraminal stenosis. L5-S1: Post surgical changes with patent spinal canal. Facet joint arthropathy with mild neural mati inal stenosis bilaterally. Other: Atherosclerosis of the arterial vasculature. Left parapelvic renal cyst. Fluid collection in t he surgical bed along the right laminectomy bed measures 3.1 x 7.3 x 3.9 IMPRESSION: 1. No evidence of fracture of the lumbar spine. 2. Similar postsurgical change the lower lumbar spine with fluid collection in the surgical bed which could represent pseudomeningocele versus other etiologies such as seroma with infected fluid collect ion not ruled out in the appropriate clinical setting. Correlate with serum markers. Before any inter vention evaluation with MRI of the spine is recommended to ensure there is no communication to the sp inal canal. 3. Multilevel disc degeneration changes of the spine
== END | disposition home or self-care (01) ==
LOC: RADCTMAIN 05-04 07:37
PROVIDERS: ATTEND Physical Medicine & Rehabilitation Pain Medicine
DX: M51.16 Intervertebral disc disorders with radiculopathy, lumbar region (principal); M96.1 Postlaminectomy syndrome, not elsewhere classified
CPT/HCPCS: 82565; 84520; 72132; 36415; Q9967

== ENCOUNTER → 2022-06-13 | Outpatient (CLI) | payer MEDICARE ==
--- NOTE | 2022-06-13 12:26 | MR ---
EXAMINATION TYPE: MR lumbar spine wo con DATE OF EXAM: 06/13/2022 12:13 PM COMPARISON: 12/21/16 HISTORY: CSF leak, extreme back pain Multiplanar, MultiSpin echo imaging of the lumbar spine was performed. L1-L2: Normal disc appearance without desiccation. No herniation, protrusion or disc bulging. No ca nal stenosis is present. Foramina are patent bilaterally. L2-L3: Disc desiccation. Posterior disc bulge. Minimal effacement ventral thecal sac. No evidence of disc herniation, protrusion or central stenosis. Mild facet joint arthropathy without foraminal encro achment. L3-L4: Disc desiccation. Posterior disc bulge. Minimal effacement ventral thecal sac. No evidence of disc herniation, protrusion or central stenosis. Mild facet joint arthropathy without foraminal encro achment. L4-L5: Disc desiccation. Posterior disc bulge. Minimal effacement ventral thecal sac. No evidence of disc herniation, protrusion or central stenosis. Mild facet joint arthropathy without foraminal encro achment. L5-S1: Postoperative changes of the right hemilaminectomy at L5-S1. Normal postoperative alignment. A rtifact from pedicular screws. Lumbar segments are intact. No paraspinal masses are identified. Conus medullaris has a normal appe arance. Fluid collection extending from L4 through L5 measuring 6.3 x 4.5 x 2.5 cm at the site of rig ht hemilaminectomy likely reflecting the site of CSF leak. IMPRESSION: 1. Fluid collection extending from L4 through L5 measuring 6.3 x 4.5 x 2.5 cm at the site of right he milaminectomy likely reflecting the site of CSF leak. 2. Multilevel degenerative disc disease. 3. Postoperative changes L5-S1 right hemilaminectomy with pedicular screws in place and normal alignm ent.
== END | disposition home or self-care (01) ==
LOC: RADMRIMAIN 11:01
PROVIDERS: ATTEND Family Medicine
DX: M51.36 Other intervertebral disc degeneration, lumbar region (principal); G96.00 Cerebrospinal fluid leak, unspecified; Z98.890 Other specified postprocedural states
CPT/HCPCS: 72148

== ENCOUNTER 2022-06-18 19:38 | Inpatient (IN) | payer MEDICARE ==
[2022-06-18] MEDS ORDERED: SODIUM CHLORIDE 0.9% 1,000 ML IV ONE (20:25)
[2022-06-18 20:35] LABS: Basophils # (A) 0.1 k/uL (0-0.2); Basophils % (A) 1 %; Eosinophils # (A) 0.2 k/uL (0-0.7); Eosinophils % (A) 1 %; HCT 40.8 % (34.0-46.0); HGB 13.9 gm/dL (11.4-16.0); Lymphocytes # (A) 2.6 k/uL (1.0-4.8); Lymphocytes % (A) 20 %; MCH 33.2 pg (25.0-35.0); MCHC 34.2 g/dL (31.0-37.0); MCV 97.2 fL (80.0-100.0); Mean Platelet Volume 9.1; Monocytes # (A) 0.6 k/uL (0-1.0); Monocytes % (A) 5 %; Neutrophils % (A) 70 %; Platelet Count 250 k/uL (150-450); RBC 4.19 m/uL (3.80-5.40); RDW 12.7 % (11.5-15.5); WBC 12.7 k/uL (3.8-10.6)
[2022-06-18 20:57] LABS: Albumin 4.1 g/dL (3.5-5.0); Calcium 9.2 mg/dL (8.4-10.2); Magnesium 2.1 mg/dL (1.6-2.3); Potassium 5.1 mmol/L (3.5-5.1); Total Bilirubin 0.5 mg/dL (0.2-1.3); Total Protein 6.8 g/dL (6.3-8.2)
[2022-06-18 21:16] LABS: Partial Thromboplastin Time 22.1 sec (22.0-30.0); Prothrombin Time 10.8 sec (9.0-12.0)
--- NOTE | 2022-06-18 21:33 | XR ---
EXAMINATION TYPE: XR chest 2V DATE OF EXAM: 06/18/2022 COMPARISON: 03/28/2022 HISTORY: Tachycardia TECHNIQUE: FINDINGS: Heart is normal. Lungs are clear. Diaphragm is normal. Bony thorax is intact. There is righ t shoulder prosthesis. There are chest leads. IMPRESSION: No active cardiopulmonary disease. No change
[2022-06-18] MEDS ORDERED: HEPARIN SODIUM 1,000 UN/ML (10ML VL) IV PRN (22:21)
[2022-06-18] MEDS ORDERED: HEPARIN SODIUM 1,000 UN/ML (10ML VL) IV ONE (22:21)
[2022-06-18] MEDS ORDERED: HEPARIN SOD,PORK IN 0.45% NACL 25,000 UNIT in 0.45% NACL 1 250ML.BAG IV SCH (22:30)
--- NOTE | 2022-06-18 23:09 | ED ---
General Adult HPI - General Chief complaint: Chest Pain Stated complaint: Tachycardia Time Seen by Provider: 06/18/22 19:42 Source: patient Mode of arrival: EMS - History of Present Illness Initial comments: This is a 72-year-old female with a past medical history including previous atrial fibrillation on low-dose aspirin, hypertension presents emergency department for increased heart rate. The patient stated that over the last week since Saturday she noted that her heart rate is been elevated up to the 160 range. The patient stated that she had associated increasing shortness of breath with this tachycardia today so she called EMS to be evaluated. 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 On arrival, the patient was tachycardic however denied of any acute respiratory distress or pain noted. The patient denied any lightheadedness or dizziness. The patient denied any nausea, vomiting, fevers and chills. - Related Data Home Medications Medication Instructions Recorded Confirmed Amitriptyline HCl [Elavil] 10 mg PO HS 06/02/14 03/28/22 oxyCODONE-APAP 5-325MG [Percocet 1 tab PO QID PRN 06/02/14 03/28/22 5-325 mg] Aspirin [Adult Low Dose Aspirin EC] 81 mg PO DAILY 11/19/18 03/28/22 Vit C/E/Zn/Coppr/Lutein/Zeaxan 1 cap PO BID 11/19/18 03/28/22 [Preservision Areds 2 Softgel] ALPRAZolam [Xanax] 0.25 mg PO TID PRN 08/25/19 03/28/22 Metoprolol Succinate [Toprol XL] 50 mg PO BID 08/25/19 03/28/22 Carboxymethylcellulose Sodium 1 drop BOTH EYES QID PRN 09/25/19 03/28/22 [Refresh Tears] Losartan Potassium [Cozaar] 25 mg PO BID 02/22/20 03/28/22 Propafenone HCl 150 mg PO BID 03/31/20 03/28/22 Pantoprazole Sodium 20 mg PO BID 03/15/21 03/28/22 Levothyroxine Sodium [Euthyrox] 50 mcg PO DAILY 03/28/22 03/28/22 Propylene Glycol/Peg 400 [Systane 1 drop BOTH EYES QID PRN 03/28/22 03/28/22 Ultra 0.4-0.3% Eye Drp] Allergies Allergy/AdvReac Type Severity Reaction Status Date / Time Iodine and Iodide Containing Allergy Severe Rash/Hives, Verified 06/18/22 19:49 Produc Dyspnea, elevated blood pressure cobalt Allergy Unknown allergy Verified 06/18/22 19:49 testing positive nickel Allergy Unknown Allergy Verified 06/18/22 19:49 testing positive shellfish derived [Shellfish] Allergy Unknown Rash, Verified 06/18/22 19:49 dyspnea, elevated bloodpressure codeine Allergy Nausea & Verified 06/18/22 19:49 Vomiting COVID-19 vaccine, mRNA, Allergy Rash/Hives Verified 06/18/22 19:49 [id number], morphine Allergy VOMITING(SE Verified 06/18/22 19:49 JESI) regadenoson [From Lexiscan] Allergy Rash/Hives. Verified 06/18/22 19:49 Review of Systems ROS Statement: Those systems with pertinent positive or pertinent negative responses have been documented in the HPI. ROS Other: All systems not noted in ROS Statement are negative. Past Medical History Past Medical History: Atrial Fibrillation, Eye Disorder, GERD/Reflux, Hyperl ipidemia, Hypertension, Mitral Valve Prolapse (MVP), Osteoarthritis (OA), Sleep Apnea/CPAP/BIPAP, Thyroid Disorder Additional Past Medical History / Comment(s): DDD, STENOSIS & CURVATURE OF SPINE., MIGRAINE HEADACHES, MACULAR DEGENERATION-receives rt eye injections every 4 weeks, CHRONIC CONSTIPATION., BLADDER LEAKAGE., C PAP MACHINE, cataracts, sciatica History of Any Multi-Drug Resistant Organisms: None Reported Past Surgical History: Back Surgery, Hysterectomy, Orthopedic Surgery, Tonsillectomy Additional Past Surgical History / Comment(s): RIGHT SHOULDER SURGERY X5 WITH ROTATOR CUFF REPAIR AND REVERSE SHOULDER WITH RODS., MULTIPLE BACK SURGERIES WITH CAGE & PLATE. , LEFT KNEE ARTHROSCOPIC, RIGHT CARPAL TUNNEL RELEASE., INJECTIONS FOR BLADDER LEAKAGE. left eye cataract removal,pain clinic procedures, COLONOSCOPY, EGD Past Anesthesia/Blood Transfusion Reactions: Motion Sickness, Postoperative Nausea & Vomiting (PONV) Past Psychological History: Anxiety Smoking Status: Never smoker Past Alcohol Use History: None Reported Past Drug Use History: None Reported - Past Family History Mother Family Medical History: No Reported History Brother(s) Family Medical History: Deep Vein Thrombosis (DVT), Rheumatoid Arthritis (RA) BROTHER Family Medical History: Cancer Additional Family Medical History / Comment(s): 2ND BROTHER OF LUNG CANCER General Exam Limitations: no limitations General appearance: alert, in no apparent distress Head exam: Present: atraumatic, normocephalic, normal inspection Eye exam: Present: normal appearance, PERRL Pupils: Present: normal accommodation ENT exam: Present: normal exam, normal oropharynx, mucous membranes moist Neck exam: Present: normal inspection, full ROM Respiratory exam: Present: normal lung sounds bilaterally Cardiovascular Exam: Present: regular rate, tachycardia GI/Abdominal exam: Present: soft, normal bowel sounds Extremities exam: Present: normal inspection, full ROM Back exam: Present: normal inspection, full ROM Neurological exam: Present: alert, oriented X3, CN II-XII intact Psychiatric exam: Present: normal affect, normal mood Skin exam: Present: warm, dry Course Vital Signs 06/18/22 06/18/22 06/18/22 19:59 21:02 22:00 Temperature 98 F Pulse Rate 138 H 137 H 80 Respiratory 16 16 16 Rate Blood Pressure 110/73 102/73 104/65 O2 Sat by Pulse 98 97 97 Oximetry EKG Findings - EKG Comments: EKG Findings:: An EKG was obtained initially on arrival. This EKG was read by myself and showed a rate of 138, QRS duration of 91 and QTC of 358. This EKG showed a reading of supraventricular tachycardia however there were some P waves noted on the monitor and it was likely sinus tachycardia. While in the emergency department, a second EKG was obtained as the patient did spontaneously slow her heart rate. The second EKG was obtained and was read by myself showing a rate of 80, QRS duration of 85 and QTC of 41. This second EKG showed atrial fibrillation consistent with her previous history of A. fib. Medical Decision Making - Medical Decision Making The patient was sitting. Physical exam, the patient was resting in bed without any acute distress. Vital signs admission did show tachycardia however was normotensive. Due to these findings, the patient had an EKG performed as well as laboratory workup and chest x-ray. EKG showed a read as supraventricular tachycardia however there were P waves evident therefore was most likely a sinus tachycardia. The patient did not receive any Cardizem at this time. The patient did receive 1 L normal saline fluid. Laboratory workup was obtained while the fluid was infusing. A chest x-ray was obtained and was interpreted by myself. Chest x-ray showed no active cardiopulmonary disease. Laboratory workup was largely within normal limits however the patient did have an elevated troponin level. A facility secondary to demand ischemia however the patient will be started on heparin drip at this time. While in the emergency department, the patient spontaneously decrease her heart rate to the 60-70 range however wasn't atrial fibrillation. Due to the patient's history of prolonged tachycardia in the setting of a history of intrafibrillation now on a heparin drip, the patient will be admitted for further workup and evaluation as well as being seen by cardiology. Dr. Pierre was contacted as he was covering the patient's primary care physician and did accept the admission at 2235. He did recommend increasing the metoprolol XL to 75 mg for tonight as well as the morning dose. He also did recommend to continue the patient's past and known order as well. The patient and her family were told this plan and were agreeable. The patient was admitted in stable condition. - Lab Data Result diagrams: 06/18/22 19:51 06/18/22 19:51 Lab Results 06/18/22 06/18/22 06/18/22 Range/Units 19:51 19:51 19:51 WBC 12.7 H (3.8-10.6) k/uL RBC 4.19 (3.80-5.40) m/uL Hgb 13.9 (11.4-16.0) gm/dL Hct 40.8 (34.0-46.0) % MCV 97.2 (80.0-100.0) fL MCH 33.2 (25.0-35.0) pg MCHC 34.2 (31.0-37.0) g/dL RDW 12.7 (11.5-15.5) % Plt Count 250 (150-450) k/uL MPV 9.1 Neutrophils % 70 % Lymphocytes % 20 % Monocytes % 5 % Eosinophils % 1 % Basophils % 1 % Neutrophils # 9.0 H (1.3-7.7) k/uL Lymphocytes # 2.6 (1.0-4.8) k/uL Monocytes # 0.6 (0-1.0) k/uL Eosinophils # 0.2 (0-0.7) k/uL Basophils # 0.1 (0-0.2) k/uL PT (9.0-12.0) sec INR (<1.2) APTT (22.0-30.0) sec D-Dimer (<0.60) mg/L FEU Sodium 140 (137-145) mmol/L Potassium 5.1 (3.5-5.1) mmol/L Chloride 111 H (98-107) mmol/L Carbon Dioxide 22 (22-30) mmol/L Anion Gap 7 mmol/L BUN 20 H (7-17) mg/dL Creatinine 1.26 H (0.52-1.04) mg/dL Est GFR (CKD-EPI)AfAm 48 (>60 ml/min/1.73 sqM) Est GFR (CKD-EPI)NonAf 42 (>60 ml/min/1.73 sqM) Glucose 112 H (74-99) mg/dL Calcium 9.2 (8.4-10.2) mg/dL Magnesium 2.1 (1.6-2.3) mg/dL Total Bilirubin 0.5 (0.2-1.3) mg/dL AST 33 (14-36) U/L ALT 19 (4-34) U/L Alkaline Phosphatase 63 (38-126) U/L Troponin I 0.057 H* (0.000-0.034) ng/mL NT-Pro-B Natriuret Pep pg/mL Total Protein 6.8 (6.3-8.2) g/dL Albumin 4.1 (3.5-5.0) g/dL 06/18/22 06/18/22 Range/Units 19:51 19:51 WBC (3.8-10.6) k/uL RBC (3.80-5.40) m/uL Hgb (11.4-16.0) gm/dL Hct (34.0-46.0) % MCV (80.0-100.0) fL MCH (25.0-35.0) pg MCHC (31.0-37.0) g/dL RDW (11.5-15.5) % Plt Count (150-450) k/uL MPV Neutrophils % % Lymphocytes % % Monocytes % % Eosinophils % % Basophils % % Neutrophils # (1.3-7.7) k/uL Lymphocytes # (1.0-4.8) k/uL Monocytes # (0-1.0) k/uL Eosinophils # (0-0.7) k/uL Basophils # (0-0.2) k/uL PT 10.8 (9.0-12.0) sec INR 1.0 (<1.2) APTT 22.1 (22.0-30.0) sec D-Dimer 0.54 (<0.60) mg/L FEU Sodium (137-145) mmol/L Potassium (3.5-5.1) mmol/L Chloride (98-107) mmol/L Carbon Dioxide (22-30) mmol/L Anion Gap mmol/L BUN (7-17) mg/dL Creatinine (0.52-1.04) mg/dL Est GFR (CKD-EPI)AfAm (>60 ml/min/1.73 sqM) Est GFR (CKD-EPI)NonAf (>60 ml/min/1.73 sqM) Glucose (74-99) mg/dL Calcium (8.4-10.2) mg/dL Magnesium (1.6-2.3) mg/dL Total Bilirubin (0.2-1.3) mg/dL AST (14-36) U/L ALT (4-34) U/L Alkaline Phosphatase (38-126) U/L Troponin I (0.000-0.034) ng/mL NT-Pro-B Natriuret Pep 2070 pg/mL Total Protein (6.3-8.2) g/dL Albumin (3.5-5.0) g/dL Critical Care Time Critical Care Time: Yes Total Critical Care Time: 33 Disposition Clinical Impression: Atrial fibrillation, Demand ischemia, Chest pain Disposition: ADMITTED IP TO THIS [facility] Condition: Stable Is patient prescribed a controlled substance at d/c from ED?: No Referrals: Uzair Cheung DO [Primary Care Provider] - 1-2 days Time of Disposition: 22:35 Decision to Admit Reason: Admit from EC Decision Date: 06/18/22 Decision Time: 22:35
[2022-06-18] MEDS ORDERED: NALOXONE 0.4 MG/ML 1 ML VIAL IV PRN (23:11)
[2022-06-18] MEDS: METOPROLOL SUCCINATE (ER) 25 MG TAB.ER.24H PO SCH (23:34)
[2022-06-18] MEDS: PROPAFENONE 150 MG TAB PO SCH (23:34)
[2022-06-19] MEDS: SODIUM CHLORIDE 0.9% 1,000 ML IV SCH ×2 (01:00→12:52)
[2022-06-19 01:34] LABS: Appearance,Urine Clear (Clear); Bacteria,Urine Rare /hpf; Bilirubin,Urine Negative (Negative); Blood,Urine Negative (Negative); Color,Urine Yellow; Glucose,Urine (UA) Negative (Negative); Hyaline Casts,Urine 17 /lpf (0-2); Ketones,Urine Negative (Negative); Leukocyte Esterase,Urine Small (Negative); Mucus,Urine Rare /hpf; Nitrite,Urine Negative (Negative); PH, Urine 5.5 (5.0-8.0); Protein,Urine Negative (Negative); RBC,Urine <1 /hpf (0-5); Specific Gravity,Urine 1.022 (1.001-1.035); Squamous Epithelial Cell,Urine <1 /hpf (0-4); Urobilinogen,Urine <2.0 mg/dL (<2.0); WBC,Urine 2 /hpf (0-5)
[2022-06-19 06:06] LABS: Basophils # (A) 0.1 k/uL (0-0.2); Basophils % (A) 1 %; Eosinophils # (A) 0.2 k/uL (0-0.7); Eosinophils % (A) 3 %; HCT 38.1 % (34.0-46.0); HGB 12.7 gm/dL (11.4-16.0); Lymphocytes # (A) 2.7 k/uL (1.0-4.8); Lymphocytes % (A) 34 %; MCH 33.1 pg (25.0-35.0); MCHC 33.4 g/dL (31.0-37.0); MCV 99.3 fL (80.0-100.0); Mean Platelet Volume 9.1; Monocytes # (A) 0.4 k/uL (0-1.0); Monocytes % (A) 5 %; Neutrophils # (A) 4.3 k/uL (1.3-7.7); Neutrophils % (A) 54 %; Platelet Count 205 k/uL (150-450); RBC 3.84 m/uL (3.80-5.40); RDW 12.8 % (11.5-15.5); WBC 7.9 k/uL (3.8-10.6)
[2022-06-19 06:15] LABS: INR 1.1 (<1.2); Partial Thromboplastin Time 82.8 sec (22.0-30.0); Prothrombin Time 11.3 sec (9.0-12.0)
[2022-06-19] MEDS: METOPROLOL SUCCINATE (ER) 25 MG TAB.ER.24H PO SCH ×2 (08:14→20:37)
[2022-06-19] MEDS: PROPAFENONE 150 MG TAB PO SCH ×2 (08:15→20:37)
[2022-06-19] MEDS ORDERED: LEVOTHYROXINE 50 MCG TAB PO ONE (08:30)
[2022-06-19] MEDS: oxyCODONE-APAP 5-325MG 1 EACH TAB PO SCH ×3 (08:32→17:38)
[2022-06-19] MEDS: ASPIRIN 81 MG PO SCH (08:33)
[2022-06-19] MEDS: LOSARTAN 25 MG TAB PO SCH ×2 (08:34→20:36)
[2022-06-19] MEDS ORDERED: ALPRAZolam 0.25 MG TAB PO PRN (10:10)
[2022-06-19] MEDS ORDERED: SOOTHE BOTH EYES PRN (10:10)
[2022-06-19] MEDS ORDERED: PEG BOTH EYES PRN (10:10)
[2022-06-19] MEDS ORDERED: PROPYLENE GLYCOL BOTH EYES PRN (10:10)
[2022-06-19] MEDS ORDERED: ARTIFICIAL TEARS-HYPROMELLOSE DROPS 15 ML BTL BOTH EYES PRN (10:10)
[2022-06-19] MEDS ORDERED: ACETAMINOPHEN TAB 500 MG TAB PO PRN (10:10)
[2022-06-19] MEDS ORDERED: NON FORMULARY DRUG (Aspirin [Adult Low Dose Aspirin Ec] 81 MG Tablet.Dr) PO SCH (10:15)
[2022-06-19] MEDS: PANTOPRAZOLE 40 MG TABLET PO SCH (10:30)
--- NOTE | 2022-06-19 10:36 | P.CRDCN ---
History of Present Illness History of present illness: HISTORY OF PRESENTING ILLNESS This is a pleasant 72-year-old female past medical history significant for normal coronary arteries by cardiac catheterization in 2019, paroxysmal atrial tachycardia, frequent PVCs and PACs, hypertension, mild to moderate aortic regurgitation, moderate mitral regurgitation, Loop recorder implantation. She follows in the office with Dr. Miles. We have been asked to see in consultation for possible atrial fibrillation, tachycardia and elevated troponin. Patient presents emergency department with complaints of increased palpitations with heart rates in the 150s at home. She states she's been noticing palpitations for the past week. He states she was called by the device clinic secondary to a heart rate in the 150s. She denies any lightheadedness, d izziness, syncope or near syncope. She does endorse some shortness of breath with activity. She denies any exertional chest discomfort. She denies any fever, cough, chills, nausea, vomiting. DIAGNOSTICS * EKG reveals SVT HR 138. * Repeat EKG sinus rhythm, heart rate 80, PACs noted. * Cardiac catheterization 09/2019 revealed normal coronary arteries * Telemetry tracings at bedside revealed sinus rhythm, with PACs, heart rate in the 80s * Chest xray no acute cardiopulmonary process * Echocardiogram in the office 03/15/2022 revealed an EF of 5055 %, mild LVH, moderate LAE, mild to moderate aortic regurgitation, moderate mitral regurgitation, RVSP of 51 mmHg * Laboratory reviewed, troponin 0.05, 0.65, proBNP 2069, CBC unremarkable, sodium 140, potassium 5.1, BUN 20, serum creatinine 1.2. REVIEW OF SYSTEMS At the time of my exam: CONSTITUTIONAL: Denies fever or chills. CARDIOVASCULAR: Denies chest pain, shortness of breath, orthopnea, PND or palpitations. RESPIRATORY: Denies cough. GASTROINTESTINAL: Denies abdominal pain, diarrhea, constipation, nausea or vomiting. MUSCULOSKELETAL: Denies myalgias. NEUROLOGIC: Denies numbness, tingling, headacbe or weakness. ENDOCRINE: Denies fatigue, weight change, polydipsia or polyurina. GENITOURINARY: Denies burning, hematuria or urgency with micturation. HEMATOLOGIC: Denies history of anemia or bleeding. PHYSICAL EXAMINATION Vitals reviewed CONSTITUTIONAL: No apparent distress. HEENT: Head is normocephalic. Pupils are equal, round. Sclerae anicteric. Mucous membranes of the mouth are moist. No JVD. No carotid bruit. CHEST EXAMINATION: Lungs are clear to auscultation. No chest wall tenderness is noted on palpation or with deep breathing. HEART EXAMINATION: Regular rate and rhythm. S1, S2 heard. Systolic murmur at apex, No gallops or rub. ABDOMEN: Soft, nontender. Positive bowel sounds. EXTREMITIES: 2+ peripheral pulses, no lower extremity edema and no calf tenderness. NEUROLOGIC EXAMINATION: Patient is awake, alert and oriented x3. ASSESSMENT SVT Paroxysmal atrial tachycardia PACs and PVCs Palpitations Elevated troponin, likely related to tachycardia Acute kidney injury Normal coronary arteries by cardiac catheterization in 2019 Hypertension Mild to moderate aortic regurgitation Moderate mitral regurgitation History of Loop recorder implantation PLAN EKGs reviewed, no atrial fibrillation Interrogate loop recorder Obtain 2D echocardiogram and doppler study to assess cardiac structure and function. Monitor on telemetry Continue statin, low-dose statin, beta stephen Recheck renal function Further recommendations based on clinical course Nurse practitioner note has been reviewed by physician. Signing provider agrees with the documented findings, assessment, and plan of care. Past Medical History Past Medical History: Atrial Fibrillation, Eye Disorder, GERD/Reflux, Hyperlipidemia, Hypertension, Mitral Valve Prolapse (MVP), Osteoarthritis (OA), Sleep Apnea/CPAP/BIPAP, Thyroid Disorder Additional Past Medical History / Comment(s): DDD, STENOSIS & CURVATURE OF SPINE., MIGRAINE HEADACHES, MACULAR DEGENERATION-receives rt eye injections every 4 weeks, CHRONIC CONSTIPATION., BLADDER LEAKAGE, cataracts, sciatica History of Any Multi-Drug Resistant Organisms: None Reported Past Surgical History: Back Surgery, Hysterectomy, Orthopedic Surgery, Tonsillectomy Additional Past Surgical History / Comment(s): RIGHT SHOULDER SURGERY X5 WITH ROTATOR CUFF REPAIR AND REVERSE SHOULDER WITH RODS., MULTIPLE BACK SURGERIES WITH CAGE & PLATE. , LEFT KNEE ARTHROSCOPIC, RIGHT CARPAL TUNNEL RELEASE., INJECTIONS FOR BLADDER LEAKAGE. left eye cataract removal,pain clinic procedures, COLONOSCOPY, EGD Past Anesthesia/Blood Transfusion Reactions: No Reported Reaction Past Psychological History: Anxiety Smoking Status: Never smoker Past Alcohol Use History: None Reported Past Drug Use History: None Reported - Past Family History Mother Family Medical History: No Reported History Brother(s) Family Medical History: Deep Vein Thrombosis (DVT), Rheumatoid Arthritis (RA) BROTHER Family Medical History: Cancer Additional Family Medical History / Comment(s): 2ND BROTHER OF LUNG CANCER Medications and Allergies Home Medications Medication Instructions Recorded Confirmed Type Amitriptyline HCl [Elavil] 10 mg PO HS 06/02/14 06/19/22 History oxyCODONE-APAP 5-325MG [Percocet 1 tab PO QID PRN 06/02/14 06/19/22 History 5-325 mg] Aspirin [Adult Low Dose Aspirin EC] 81 mg PO DAILY 11/19/18 06/19/22 History Vit C/E/Zn/Coppr/Lutein/Zeaxan 1 cap PO BID 11/19/18 06/19/22 History [Preservision Areds 2 Softgel] ALPRAZolam [Xanax] 0.25 mg PO TID PRN 08/25/19 06/19/22 History Metoprolol Succinate [Toprol XL] 50 mg PO TID 08/25/19 06/19/22 History Carboxymethylcellulose Sodium 1 drop BOTH EYES QID PRN 09/25/19 06/19/22 History [Refresh Tears] Losartan Potassium [Cozaar] 25 mg PO BID 02/22/20 06/19/22 History Propafenone HCl 150 mg PO BID 03/31/20 06/19/22 History Pantoprazole Sodium 20 mg PO BID 03/15/21 06/19/22 History Levothyroxine Sodium [Euthyrox] 50 mcg PO DAILY 03/28/22 06/19/22 History Propylene Glycol/Peg 400 [Systane 1 drop BOTH EYES QID PRN 03/28/22 06/19/22 History Ultra 0.4-0.3% Eye Drp] Acetaminophen Tab [Tylenol Tab] 500 mg PO Q4H PRN 06/19/22 06/19/22 History Rosuvastatin Calcium 5 mg PO HS 06/19/22 06/19/22 History Soothe 1 drop BOTH EYES BID PRN 06/19/22 06/19/22 History Allergies Allergy/AdvReac Type Severity Reaction Status Date / Time Iodine and Iodide Containing Allergy Severe Rash/Hives, Verified 06/19/22 08:00 Produc Dyspnea, elevated blood pressure cobalt Allergy Unknown allergy Verified 06/19/22 08:00 testing positive nickel Allergy Unknown Allergy Verified 06/19/22 08:00 testing positive shellfish derived [Shellfish] Allergy Unknown Rash, Verified 06/19/22 08:00 dyspnea, elevated bloodpressure COVID-19 vaccine, mRNA, Allergy Rash/Hives Verified 06/19/22 08:00 [id number], regadenoson [From Lexiscan] Allergy Rash/Hives. Verified 06/19/22 08:00 codeine AdvReac Nausea & Verified 06/19/22 08:00 Vomiting morphine AdvReac VOMITING(SE Verified 06/19/22 08:00 JESI) Physical Exam Vitals: Vital Signs Temp Pulse Pulse Resp BP BP Pulse Ox 06/19/22 10:12 84 18 116/56 97 06/19/22 08:08 97.1 F L 55 L 18 135/80 98 06/19/22 06:03 98.2 F 71 19 131/85 97 06/19/22 04:00 98.0 F 66 19 107/63 95 06/18/22 23:00 81 16 90/68 98 06/18/22 22:00 80 16 104/65 97 06/18/22 21:02 137 H 16 102/73 97 06/18/22 19:59 98 F 138 H 16 110/73 98 Intake and Output 06/18/22 06/19/22 06/19/22 22:59 06:59 14:59 Intake Total 73.96 Balance 73.96 Intake: Intake, IV Titration 73.96 Amount Heparin Sod,Pork in 0.45% 73.96 NaCl 25,000 unit In 0.45 % NaCl 1 250ml.bag @ 12 UNITS/KG/HR 9.362 mls/hr IV .Q24H [facility] Rx#: [id number] Other: Voiding Method Bedside Commode # Voids 2 Weight 78.018 kg 78.018 kg Results 06/19/22 05:12 06/18/22 19:51 Cardiac Enzymes 06/18/22 06/18/22 06/19/22 Range/Units 19:51 19:51 00:34 AST 33 (14-36) U/L Troponin I 0.057 H* 0.656 H* (0.000-0.034) ng/mL Coagulation 06/18/22 06/19/22 Range/Units 19:51 05:12 PT 10.8 11.3 (9.0-12.0) sec APTT 22.1 82.8 H (22.0-30.0) sec CBC 06/18/22 06/19/22 Range/Units 19:51 05:12 WBC 12.7 H 7.9 (3.8-10.6) k/uL RBC 4.19 3.84 (3.80-5.40) m/uL Hgb 13.9 12.7 (11.4-16.0) gm/dL Hct 40.8 38.1 (34.0-46.0) % Plt Count 250 205 (150-450) k/uL Comprehensive Metabolic Panel 06/18/22 Range/Units 19:51 Sodium 140 (137-145) mmol/L Potassium 5.1 (3.5-5.1) mmol/L Chloride 111 H (98-107) mmol/L Carbon Dioxide 22 (22-30) mmol/L BUN 20 H (7-17) mg/dL Creatinine 1.26 H (0.52-1.04) mg/dL Glucose 112 H (74-99) mg/dL Calcium 9.2 (8.4-10.2) mg/dL AST 33 (14-36) U/L ALT 19 (4-34) U/L Alkaline Phosphatase 63 (38-126) U/L Total Protein 6.8 (6.3-8.2) g/dL Albumin 4.1 (3.5-5.0) g/dL Current Medications Generic Name Dose Route Start Last Admin Trade Name Freq PRN Reason Stop Dose Admin Acetaminophen 500 mg 06/19/22 10:10 Acetaminophen Tab 500 Mg Tab PO Q4H PRN Pain Alprazolam 0.25 mg 06/19/22 10:10 Alprazolam 0.25 Mg Tab PO TID PRN Anxiety Amitriptyline HCl 10 mg 06/19/22 21:00 Amitriptyline Hcl 10 Mg Tab PO HS LAN Artificial Tears 1 drops 06/19/22 10:10 Artificial Tears-Hypromellose Drops 15 Ml Btl BOTH EYES QID PRN dry eyes Aspirin 81 mg 06/19/22 09:00 06/19/22 08:33 Aspirin 81 Mg PO 81 mg DAILY LAN Administration Atorvastatin Calcium 5 mg 06/19/22 21:00 Atorvastatin 10 Mg Tab PO HS LAN Sodium Chloride 1,000 mls @ 75 mls/hr 06/18/22 23:15 06/19/22 01:00 Saline 0.9% IV 75 mls/hr .[id number] LAN Administration Levothyroxine Sodium 50 mcg 06/20/22 06:30 Levothyroxine 50 Mcg Tab PO DAILY@0630 [facility] Losartan Potassium 25 mg 06/19/22 09:00 06/19/22 08:34 Losartan 25 Mg Tab PO 25 mg BID LAN Administration Metoprolol Succinate 75 mg 06/18/22 23:15 06/19/22 08:14 Metoprolol Succinate (Er) 25 Mg Tab.Er.24h PO 75 mg BID LAN Administration Multivitamins/Minerals 1 each 06/19/22 21:00 Vit A,C & Z-Skfvyp-Jqjvjpxz 1 Each Tab PO BID LAN Naloxone HCl 0.2 mg 06/18/22 23:11 Naloxone 0.4 Mg/Ml 1 Ml Vial IV Q2M PRN Opioid Reversal Oxycodone/Acetaminophen 1 each 06/19/22 09:00 06/19/22 08:32 Oxycodone-Apap 5-325mg 1 Each Tab PO 1 each QID LAN Administration Pantoprazole Sodium 40 mg 06/19/22 10:15 Pantoprazole 40 Mg Tablet PO AC-BRKFST [facility] Propafenone HCl 150 mg 06/18/22 23:15 06/19/22 08:15 Propafenone 150 Mg Tab PO 150 mg BID LAN Administration Intake and Output 06/18/22 06/19/22 06/19/22 22:59 06:59 14:59 Intake Total 73.96 Balance 73.96 Intake: Intake, IV Titration 73.96 Amount Heparin Sod,Pork in 0.45% 73.96 NaCl 25,000 unit In 0.45 % NaCl 1 250ml.bag @ 12 UNITS/KG/HR 9.362 mls/hr IV .Q24H [facility] Rx#: [id number] Other: Voiding Method Bedside Commode # Voids 2 Weight 78.018 kg 78.018 kg 06/19/22 05:12 06/18/22 19:51
[2022-06-19 11:23] LABS: Calcium 8.5 mg/dL (8.4-10.2); Potassium 4.2 mmol/L (3.5-5.1)
--- NOTE | 2022-06-19 13:34 | CA ---
Transthoracic Echo Report Name: Na Byers Age: 72 Gender: F : 1950 Exam Date: 06/19/2022 09:59 Exam Location: [facility] Ht (in): 65 Wt (lb): 77 Ordering Physician: Elissa Emmanuel Attending/Referring Phys: Corporate Development Manager Arlene Alexandra RDCS Procedure CPT: Indications: svt Cardiac Hx: Technical Quality: Contrast 1: Total Dose (mL): Contrast 2: Total Dose (mL): MEASUREMENTS (Male / Female) Normal Values 2D ECHO LV Diastolic Diameter PLAX 4.5 cm 4.2 - 5.9 / 3.9 - 5.3 cm LV Systolic Diameter PLAX 2.4 cm IVS Diastolic Thickness 1.2 cm 0.6 - 1.0 / 0.6 - 0.9 cm LVPW Diastolic Thickness 1.3 cm 0.6 - 1.0 / 0.6 - 0.9 cm LV Relative Wall Thickness 0.6 RV Internal Dim ED PLAX 2.9 cm LA Systolic Diameter LX 4.0 cm 3.0 - 4.0 / 2.7 - 3.8 cm LA Volume 94.1 cm??? 18 - 58 / 22 - 52 cm??? M-MODE MV E Point Septal Separation 0.3 cm DOPPLER MV Area PHT 3.5 cm??? Mitral E Point Velocity 61.6 cm/s Mitral A Point Velocity 52.1 cm/s Mitral E to A Ratio 1.2 MV Deceleration Time 214.3 ms MV E' Velocity 4.7 cm/s Mitral E to MV E' Ratio 13.2 TR Peak Velocity 227.5 cm/s TR Peak Gradient 20.7 mmHg Right Ventricular Systolic Press 25.7 mmHg FINDINGS Left Ventricle Mildly increased septal wall thickness. Mildly increased posterior wall thickness. Left ventricular cavity size normal. Left ventricular ejection fraction is estimated at 55%. Right Ventricle Normal right ventricular size and function. Right ventricular systolic pressure within normal limits. Right Atrium Normal right atrial size. Left Atrium Mildly increased left atrial diameter. Severely increased left atrial volume. Mildly increased left atrial area. Mitral Valve Mitral valve thickened. Mild mitral regurgitation. Aortic Valve Trileaflet aortic valve. Mild aortic regurgitation. Tricuspid Valve Structurally normal tricuspid valve. Mild tricuspid regurgitation. Pulmonic Valve Structurally normal pulmonic valve. [id number] pulmonic regurgitation. Pericardium Normal pericardium. Aorta Normal size aortic root and proximal ascending aorta. CONCLUSIONS Mild LVH with preserved systolic function [Large Previewed by: Dr. Tomás Miles MD (Electronically Signed) Final Date: 19 June 2022 13:33
[2022-06-19] MEDS: SENNOSIDES 8.6 MG TAB PO PRN (20:37)
[2022-06-19] MEDS: VIT A,C & E-LUTEIN-MINERALS 1 EACH TAB PO SCH (20:37)
[2022-06-19] MEDS ORDERED: AMITRIPTYLINE HCL 10 MG TAB PO SCH (21:00)
[2022-06-19] MEDS ORDERED: NON FORMULARY DRUG (Rosuvastatin Calcium [Rosuvastatin Calcium] 5 MG Tablet) PO SCH (21:00)
[2022-06-19] MEDS ORDERED: ATORVASTATIN 10 MG TAB PO SCH (21:00)
--- NOTE | 2022-06-19 21:08 | P.HPIM ---
History of Present Illness H&P Date: 06/19/22 Chief Complaint: Heart tracing This is a pleasant 72-year-old patient who follows a Dr. Cheung. Chronic stable medical conditions include GERD, hyperlipidemia, hypertension, mitral valve prolapse, osteoporosis, obstructive sleep apnea does not use CPAP, hypothyroid, DJD, macular degeneration, chronic constipation, urinary incontinence, sciatica. Normal coronaries.- Cardiac catheterization 2019 Patient does follow with metal spray operator Dr. Miles. She has a loop recorder. For about 67 days patient has been noticing her heart is racing. She was called in from Dr. Miles's office to come to the ER. The patient has been postponing it. Patient started becoming short of breath. Some chest discomfort. No obvious dizziness or lightheadedness. Decided to come in. It is started on IV heparin the ER also placed back on Rythmol and Toprol-XL. Heart rate better co ntrolled this morning. Sinus rhythm. Review of systems: GEN.: Tired EYES: None HEENT: None NECK: None RESPIRATORY: As above CARDIOVASCULAR: As above GASTROINTESTINAL: None GENITOURINARY: None MUSCULOSKELETAL: Joint pains LYMPHATICS: None HEMATOLOGICAL: None PSYCHIATRY: None NEUROLOGICAL: None Past medical history to include: GERD, hyperlipidemia, hypertension, mitral valve prolapse, osteoporosis, obstructive sleep apnea does not use CPAP, hypothyroid, DJD, macular degeneration, chronic constipation, urinary incontinence, sciatica. Normal coronaries.- Cardiac catheterization 2019 Social history: Lives alone. No smoking or alcohol. Physical examination: VITAL SIGNS: 98, 138, 16, 110/73, 98% room air upon presentation GENERAL: BMI 27.8, declining in bed, awake, comfortable. EYES: Pupils equal. Conjunctiva normal. HEENT: External appearance of nose and ears normal, oral cavity grossly normal. NECK: JVD not raised; masses not palpable. HEART: First and second heart sounds are normal; no edema. LUNGS: Respiratory rate normal; clear to auscultation. ABDOMEN: Soft, nontender, liver spleen not palpable, no masses palpable. PSYCH: Alert and oriented x3; mood and affect normal. MUSCULOSKELETAL:No Clubbing/cyanosis;muscles-grossly intact, OA NEUROLOGICAL: Cranial nerves grossly intact; no facial asymmetry, power and sensation grossly intact. LYMPHATICS: No lymph nodes palpable in the axilla and neck INVESTIGATIONS, reviewed in the clinical context: 06/19/2022: White count 7.9 hemoglobin 12.7 platelets 205 potassium 4.2. 19 creatinine 0.99 2-D echocardiogram 55%. [id number]-vh-[id number] pulmonic regurgitation. Admission labs: Chest x-ray film personally reviewed by me-borderline currently medically. Lung padron clear EKG tracing personally reviewed by me-SVT. With some ST-T wave changes. White count 12.7 hemoglobin 13.9 platelets 250 potassium 5.1 BUN 20 creatinine 1.26 Troponin I 0.057, 0.656 ProBNP 2069 Assessment and plan: -Paroxysmal SVT with a heart rate up to 140s. Patient does have a loop recorder. Symptomatic. Including shortness of breath. Patient does follow with Dr. Tomás Miles. Patient on Toprol-XL 75 mg twice a day, Rythmol. Telemetry. Follow with cardiology.. -GERD -Troponin leak from SVT. No ACS. Patient had a cardiac catheterization 2019 that was unremarkable. -Hyperlipidemia Statin -Essential hypertension Toprol-XL, Cozaar -Primary osteoarthritis Percocet -Obstructive sleep apnea Patient does not use CPAP -Hypothyroid Levothyroxine 50 g daily -Urinary stress incontinence -Chronic constipation Laxative as needed -Macular degeneration of the right eye cc injections every 4 weeks Toprol-XL was increased to 75 mg twice a day. Rythmol continued. Check TSH in the morning. Home medications renewed. Follow with cardiology. Past Medical History Past Medical History: Atrial Fibrillation, Eye Disorder, GERD/Reflux, Hyperlipidemia, Hypertension, Mitral Valve Prolapse (MVP), Osteoarthritis (OA), Sleep Apnea/CPAP/BIPAP, Thyroid Disorder Additional Past Medical History / Comment(s): DDD, STENOSIS & CURVATURE OF SPINE., MIGRAINE HEADACHES, MACULAR DEGENERATION-receives rt eye injections every 4 weeks, CHRONIC CONSTIPATION., BLADDER LEAKAGE, cataracts, sciatica History of Any Multi-Drug Resistant Organisms: None Reported Past Surgical History: Back Surgery, Hysterectomy, Orthopedic Surgery, Tonsillectomy Additional Past Surgical History / Comment(s): RIGHT SHOULDER SURGERY X5 WITH ROTATOR CUFF REPAIR AND REVERSE SHOULDER WITH RODS., MULTIPLE BACK SURGERIES WITH CAGE & PLATE. , LEFT KNEE ARTHROSCOPIC, RIGHT CARPAL TUNNEL RELEASE., INJECTIONS FOR BLADDER LEAKAGE. left eye cataract removal,pain clinic procedures, COLONOSCOPY, EGD Past Anesthesia/Blood Transfusion Reactions: No Reported Reaction Past Psychological History: Anxiety Smoking Status: Never smoker Past Alcohol Use History: None Reported Past Drug Use History: None Reported - Past Family History Mother Family Medical History: No Reported History Brother(s) Family Medical History: Deep Vein Thrombosis (DVT), Rheumatoid Arthritis (RA) BROTHER Family Medical History: Cancer Additional Family Medical History / Comment(s): 2ND BROTHER OF LUNG CANCER Medications and Allergies Home Medications Medication Instructions Recorded Confirmed Type Amitriptyline HCl [Elavil] 10 mg PO HS 06/02/14 06/19/22 History oxyCODONE-APAP 5-325MG [Percocet 1 tab PO QID PRN 06/02/14 06/19/22 History 5-325 mg] Aspirin [Adult Low Dose Aspirin EC] 81 mg PO DAILY 11/19/18 06/19/22 History Vit C/E/Zn/Coppr/Lutein/Zeaxan 1 cap PO BID 11/19/18 06/19/22 History [Preservision Areds 2 Softgel] ALPRAZolam [Xanax] 0.25 mg PO TID PRN 08/25/19 06/19/22 History Metoprolol Succinate [Toprol XL] 50 mg PO TID 08/25/19 06/19/22 History Carboxymethylcellulose Sodium 1 drop BOTH EYES QID PRN 09/25/19 06/19/22 History [Refresh Tears] Losartan Potassium [Cozaar] 25 mg PO BID 02/22/20 06/19/22 History Propafenone HCl 150 mg PO BID 03/31/20 06/19/22 History Pantoprazole Sodium 20 mg PO BID 03/15/21 06/19/22 History Levothyroxine Sodium [Euthyrox] 50 mcg PO DAILY 03/28/22 06/19/22 History Propylene Glycol/Peg 400 [Systane 1 drop BOTH EYES QID PRN 03/28/22 06/19/22 History Ultra 0.4-0.3% Eye Drp] Acetaminophen Tab [Tylenol Tab] 500 mg PO Q4H PRN 06/19/22 06/19/22 History Rosuvastatin Calcium 5 mg PO HS 06/19/22 06/19/22 History Soothe 1 drop BOTH EYES BID PRN 06/19/22 06/19/22 History Allergies Allergy/AdvReac Type Severity Reaction Status Date / Time Iodine and Iodide Containing Allergy Severe Rash/Hives, Verified 06/19/22 08:00 Produc Dyspnea, elevated blood pressure cobalt Allergy Unknown allergy Verified 06/19/22 08:00 testing positive nickel Allergy Unknown Allergy Verified 06/19/22 08:00 testing positive shellfish derived [Shellfish] Allergy Unknown Rash, Verified 06/19/22 08:00 dyspnea, elevated bloodpressure COVID-19 vaccine, mRNA, Allergy Rash/Hives Verified 06/19/22 08:00 [id number], regadenoson [From Lexiscan] Allergy Rash/Hives. Verified 06/19/22 08:00 codeine AdvReac Nausea & Verified 06/19/22 08:00 Vomiting morphine AdvReac VOMITING(SE Verified 06/19/22 08:00 JESI) Physical Exam Vitals: Vital Signs Temp Pulse Pulse Resp BP BP Pulse Ox 06/19/22 08:08 97.1 F L 55 L 18 135/80 98 06/19/22 06:03 98.2 F 71 19 131/85 97 06/19/22 04:00 98.0 F 66 19 107/63 95 06/18/22 23:00 81 16 90/68 98 06/18/22 22:00 80 16 104/65 97 06/18/22 21:02 137 H 16 102/73 97 06/18/22 19:59 98 F 138 H 16 110/73 98 Intake and Output 06/18/22 06/19/22 06/19/22 22:59 06:59 14:59 Intake Total 73.96 Balance 73.96 Intake: Intake, IV Titration 73.96 Amount Heparin Sod,Pork in 0.45% 73.96 NaCl 25,000 unit In 0.45 % NaCl 1 250ml.bag @ 12 UNITS/KG/HR 9.362 mls/hr IV .Q24H [facility] Rx#: [id number] Other: Voiding Method Bedside Commode # Voids 2 Weight 78.018 kg 78.018 kg Results CBC & Chem 7: 06/19/22 05:12 06/19/22 05:12 Labs: Abnormal Lab Results - Last 24 Hours (Table) 06/18/22 06/18/22 06/18/22 Range/Units 19:51 19:51 19:51 WBC 12.7 H (3.8-10.6) k/uL Neutrophils # 9.0 H (1.3-7.7) k/uL APTT (22.0-30.0) sec Chloride 111 H (98-107) mmol/L BUN 20 H (7-17) mg/dL Creatinine 1.26 H (0.52-1.04) mg/dL Glucose 112 H (74-99) mg/dL Troponin I 0.057 H* (0.000-0.034) ng/mL Ur Leukocyte Esterase (Negative) Urine Bacteria (None) /hpf Hyaline Casts (0-2) /lpf Urine Mucus (None) /hpf 06/19/22 06/19/22 06/19/22 Range/Units 00:34 01:13 05:12 WBC (3.8-10.6) k/uL Neutrophils # (1.3-7.7) k/uL APTT 82.8 H (22.0-30.0) sec Chloride (98-107) mmol/L BUN (7-17) mg/dL Creatinine (0.52-1.04) mg/dL Glucose (74-99) mg/dL Troponin I 0.656 H* (0.000-0.034) ng/mL Ur Leukocyte Esterase Small H (Negative) Urine Bacteria Rare H (None) /hpf Hyaline Casts 17 H (0-2) /lpf Urine Mucus Rare H (None) /hpf Thrombosis Risk Factor Assmnt - Choose All That Apply Any of the Below Risk Factors Present?: Yes Each Factor Represents 1 point: Obesity (BMI >25) Each Risk Factor Represents 2 Points: Age 61-74 years Thrombosis Risk Factor Assessment Total Risk Factor Score: 3 Thrombosis Risk Factor Assessment Level: Moderate Risk
[2022-06-19 21:17] VITALS: RESP 18
[2022-06-20] MEDS: oxyCODONE-APAP 5-325MG 1 EACH TAB PO SCH ×2 (02:27→08:08)
[2022-06-20] MEDS: SENNOSIDES 8.6 MG TAB PO PRN (05:43)
[2022-06-20] MEDS: PANTOPRAZOLE 40 MG TABLET PO SCH (05:46)
[2022-06-20] MEDS ORDERED: LEVOTHYROXINE 50 MCG TAB PO SCH (06:30)
[2022-06-20] MEDS: ASPIRIN 81 MG PO SCH (08:08)
[2022-06-20] MEDS: VIT A,C & E-LUTEIN-MINERALS 1 EACH TAB PO SCH (08:09)
[2022-06-20] MEDS: METOPROLOL SUCCINATE (ER) 25 MG TAB.ER.24H PO SCH (08:09)
[2022-06-20] MEDS: LOSARTAN 25 MG TAB PO SCH (08:09)
[2022-06-20] MEDS: PROPAFENONE 150 MG TAB PO SCH (08:09)
[2022-06-20 10:01] VITALS: PULSE 64; TEMP 97.8
[2022-06-20 12:37] VITALS: BP 147/84
--- NOTE | 2022-06-20 12:43 | P.PN ---
Subjective his is a pleasant 72-year-old female past medical history significant for normal coronary arteries by cardiac catheterization in 2020, paroxysmal atrial tachycardia, frequent PVCs and PACs, hypertension, mild to moderate aortic regurgitation, moderate mitral regurgitation, Loop recorder implantation. She follows in the office with Dr. Miles. We have been asked to see in consultation for possible atrial fibrillation, tachycardia and elevated tr oponin. Patient presents emergency department with complaints of increased palpitations with heart rates in the 150s at home. She states she's been noticing palpitations for the past week. He states she was called by the device clinic secondary to a heart rate in the 150s. She denies any lightheadedness, dizziness, syncope or near syncope. She does endorse some shortness of breath with activity. She denies any exertional chest discomfort. She denies any fever, cough, chills, nausea, vomiting. 06/20/2022 Patient seen and examined at bedside, no acute distress. She is maintaining sinus mechanism with PACs. Her echocardiogram revealed EF 55%, mild mitral regurgitation, mild tricuspid regurgitation, mild to moderate pulmonary regurgitation. Vital signs are stable PHYSICAL EXAMINATION Vitals reviewed CONSTITUTIONAL: No apparent distress. HEENT: Head is normocephalic. Pupils are equal, round. Sclerae anicteric. Mucous membranes of the mouth are moist. No JVD. No carotid bruit. CHEST EXAMINATION: Lungs are clear to auscultation. No chest wall tenderness is noted on palpation or with deep breathing. HEART EXAMINATION: Regular rate and rhythm. S1, S2 heard. Systolic murmur at apex, No gallops or rub. ABDOMEN: Soft, nontender. Positive bowel sounds. EXTREMITIES: 2+ peripheral pulses, no lower extremity edema and no calf tenderness. NEUROLOGIC EXAMINATION: Patient is awake, alert and oriented x3. ASSESSMENT SVT Paroxysmal atrial tachycardia PACs and PVCs Palpitations Elevated troponin, likely related to tachycardia Acute kidney injury Normal coronary arteries by cardiac catheterization in 2019 Hypertension Mild to moderate aortic regurgitation Moderate mitral regurgitation History of Loop recorder implantation PLAN From a cardiology perspective, patient is stable. Continue current medications. Follow up with Dr. Miles on 06/25. Nurse practitioner note has been reviewed by physician. Signing provider agrees with the documented findings, assessment, and plan of care. Objective - Vital Signs Vital signs: Vital Signs Temp 97.8 F 06/20/22 08:07 Pulse 64 12/07/22 11:44 Resp 18 06/20/22 11:44 BP 147/84 06/20/22 11:44 Pulse Ox 96 06/20/22 11:44 FiO2 Intake & Output 06/19/22 06/20/22 06/20/22 18:59 06:59 18:59 Intake Total 118 225 180 Balance 118 225 180 Intake: Intake, IV Titration 225 Amount Sodium Chloride 0.9% 1, 225 000 ml @ 75 mls/hr IV . [id number] [facility] Rx#:[id number] Oral 118 180 Other: Voiding Method Toilet Toilet Toilet # Voids 3 # Bowel Movements 1 - Labs CBC & Chem 7: 06/19/22 05:12 06/19/22 05:12
--- NOTE | 2022-06-20 20:38 | P.DS ---
Providers Date of admission: 06/18/22 23:12 Expected date of discharge: 06/20/22 Attending physician: Mynor Pierre Consults: 06/18/22 23:11 Consult Physician Routine Consulting Provider: [facility] Consult Reason/Comments: Atrial fibrillation, elevated troponin Do you want consulting provider notified?: Yes, Notify in am Primary care physician: [facility] Course: Chief Complaint: Heart tracing This is a pleasant 72-year-old patient who follows a Dr. Cheung. Chronic stable medical conditions include GERD, hyperlipidemia, hypertension, mitral valve prolapse, osteoporosis, obstructive sleep apnea does not use CPAP, hypothyroid, DJD, macular degeneration, chronic constipation, urinary incontinence, sciatica. Normal coronaries.- Cardiac catheterization 2019 Patient does follow with chain forming machine operator Dr. Miles. She has a loop recorder. For about 67 days patient has been noticing her heart is racing. She was called in from Dr. Miles's office to come to the ER. The patient has been postponing it. Patient started becoming short of breath. Some chest discomfort. No obvious dizziness or lightheadedness. Decided to come in. It is started on IV heparin the ER also placed back on Rythmol and Toprol-XL. Heart rate better controlled this morning. Sinus rhythm. 06/20/2022: Sinus rhythm. Heart rate controlled. Feeling much better. Will be discharged on Toprol-XL 75 mg twice a day. Follow-up with Dr. Tomás Miles on June 25. Discussed. Past medical history to include: GERD, hyperlipidemia, hypertension, mitral valve prolapse, osteoporosis, obstructive sleep apnea does not use CPAP, hypothyroid, DJD, macular degeneration, chronic constipation, urinary incontinence, sciatica. Normal coronaries.- Cardiac catheterization 2019 Social history: Lives alone. No smoking or alcohol. Physical examination: VITAL SIGNS: 97.8, 64, 16, 1 47 x 84, 96% room air GENERAL: comfortable. EYES: Pupils equal. Conjunctiva normal. HEENT: External appearance of nose and ears normal, oral cavity grossly normal. NECK: JVD not raised; masses not palpable. HEART: First and second heart sounds are normal; no edema. LUNGS: Respiratory rate normal; clear to auscultation. ABDOMEN: Soft, nontender, liver spleen not palpable, no masses palpable. PSYCH: Alert and oriented x3; mood and affect normal. MUSCULOSKELETAL:No Clubbing/cyanosis;muscles-grossly intact, OA INVESTIGATIONS, reviewed in the clinical context: TSH 4.6 06/19/2022: White count 7.9 hemoglobin 12.7 platelets 205 potassium 4.2. 19 creatinine 0.99 2-D echocardiogram 55%. Utie-eg-acplaals pulmonic regurgitation. Admission labs: Chest x-ray film personally reviewed by me-borderline currently medically. Lung padron clear EKG tracing personally reviewed by me-SVT. With some ST-T wave changes. White count 12.7 hemoglobin 13.9 platelets 250 potassium 5.1 BUN 20 creatinine 1.26 Troponin I 0.057, 0.656 ProBNP 2069 Assessment and plan: -Paroxysmal SVT/atrial tachycardia with a heart rate up to 140s. Patient does have a loop recorder. Symptomatic. Including shortness of breath. Discharged on Toprol-XL 75 mg twice a day, Rythmol. Telemetry. Follow with Dr. Tomás Miles on 06/25/2022 -GERD -Troponin leak from SVT. No ACS. Patient had a cardiac catheterization 2019 that was unremarkable. -Hyperlipidemia Statin -Essential hypertension Toprol-XL, Cozaar -Primary osteoarthritis Percocet -Obstructive sleep apnea Patient does not use CPAP -Hypothyroid Levothyroxine 50 g daily -Urinary stress incontinence -Chronic constipation Laxative as needed -Macular degeneration of the right eye cc injections every 4 weeks Disposition: Home Plan - Discharge Summary Discharge Rx Participant: No New Discharge Prescriptions: New Metoprolol Succinate (ER) [Toprol XL] 25 mg PO BID #60 tab Continue oxyCODONE-APAP 5-325MG [Percocet 5-325 mg] 1 tab PO QID PRN PRN Reason: Pain Amitriptyline HCl [Elavil] 10 mg PO HS Vit C/E/Zn/Coppr/Lutein/Zeaxan [Preservision Areds 2 Softgel] 1 cap PO BID Aspirin [Adult Low Dose Aspirin EC] 81 mg PO DAILY ALPRAZolam [Xanax] 0.25 mg PO TID PRN PRN Reason: Anxiety Carboxymethylcellulose Sodium [Refresh Tears] 1 drop BOTH EYES QID PRN PRN Reason: dry eyes Losartan Potassium [Cozaar] 25 mg PO BID Propafenone HCl 150 mg PO BID Acetaminophen Tab [Tylenol] 500 mg PO Q4H PRN PRN Reason: Pain Pantoprazole Sodium 20 mg PO BID Propylene Glycol/Peg 400 [Systane Ultra 0.4-0.3% Eye Drp] 1 drop BOTH EYES QID PRN PRN Reason: Dry Eye(S) Levothyroxine Sodium [Euthyrox] 50 mcg PO DAILY Soothe 1 drop BOTH EYES BID PRN PRN Reason: Dry Eye(S) Rosuvastatin Calcium 5 mg PO HS Changed Metoprolol Succinate [Toprol XL] 50 mg PO BID #0 Discharge Medication List Amitriptyline HCl [Elavil] 10 mg PO HS 06/02/14 [History] oxyCODONE-APAP 5-325MG [Percocet 5-325 mg] 1 tab PO QID PRN 06/02/14 [History] Aspirin [Adult Low Dose Aspirin EC] 81 mg PO DAILY 11/19/18 [History] Vit C/E/Zn/Coppr/Lutein/Zeaxan [Preservision Areds 2 Softgel] 1 cap PO BID 11/19/18 [History] ALPRAZolam [Xanax] 0.25 mg PO TID PRN 08/25/19 [History] Carboxymethylcellulose Sodium [Refresh Tears] 1 drop BOTH EYES QID PRN 09/25/19 [History] Losartan Potassium [Cozaar] 25 mg PO BID 02/22/20 [History] Propafenone HCl 150 mg PO BID 03/31/20 [History] Pantoprazole Sodium 20 mg PO BID 03/15/21 [History] Levothyroxine Sodium [Euthyrox] 50 mcg PO DAILY 03/28/22 [History] Propylene Glycol/Peg 400 [Systane Ultra 0.4-0.3% Eye Drp] 1 drop BOTH EYES QID PRN 03/28/22 [History] Acetaminophen Tab [Tylenol] 500 mg PO Q4H PRN 06/19/22 [History] Rosuvastatin Calcium 5 mg PO HS 06/19/22 [History] Soothe 1 drop BOTH EYES BID PRN 06/19/22 [History] Metoprolol Succinate (ER) [Toprol XL] 25 mg PO BID #60 tab 06/20/22 [Rx] Metoprolol Succinate [Toprol XL] 50 mg PO BID #0 06/20/22 [Rx] Follow up Appointment(s)/Referral(s): Tomás Miles MD [STAFF PHYSICIAN] - 06/25/22 10:45 am Uzair Cheung DO [Primary Care Provider] - 06/22/22 2:40 pm Patient Instructions/Handouts: Supraventricular Tachycardia (DC) Discharge Disposition: HOME SELF-CARE
== END 2022-06-20 12:14 | disposition home or self-care (01) | DRG 309 ==
LOC: EC 19:38 → 3SCARD 23:12
PROVIDERS: ADMIT Hospitalist; ATTEND Hospitalist
DX: I47.1 Supraventricular tachycardia (principal); I24.8 Other forms of acute ischemic heart disease; N17.9 Acute kidney failure, unspecified; I49.3 Ventricular premature depolarization; I08.0 Rheumatic disorders of both mitral and aortic valves; I10 Essential (primary) hypertension; K21.9 Gastro-esophageal reflux disease without esophagitis; E03.9 Hypothyroidism, unspecified; E78.5 Hyperlipidemia, unspecified; G47.33 Obstructive sleep apnea (adult) (pediatric); H35.50 Unspecified hereditary retinal dystrophy; K59.09 Other constipation; N39.3 Stress incontinence (female) (male); G43.909 Migraine, unspecified, not intractable, without status migrainosus; H35.30 Unspecified macular degeneration; I34.1 Nonrheumatic mitral (valve) prolapse; I48.91 Unspecified atrial fibrillation; M81.0 Age-related osteoporosis without current pathological fracture; M54.30 Sciatica, unspecified side; M19.91 Primary osteoarthritis, unspecified site; F41.9 Anxiety disorder, unspecified; Z88.8 Allergy status to other drugs, medicaments and biological substances; Z91.041 Radiographic dye allergy status; Z88.7 Allergy status to serum and vaccine; Z91.013 Allergy to seafood; Z79.899 Other long term (current) drug therapy; Z79.82 Long term (current) use of aspirin; Z80.1 Family history of malignant neoplasm of trachea, bronchus and lung; Z83.2 Family history of diseases of the blood and blood-forming organs and certain disorders involving the immune mechanism; Z82.61 Family history of arthritis; Z79.890 Hormone replacement therapy; Z90.710 Acquired absence of both cervix and uterus; Z91.048 Other nonmedicinal substance allergy status; Z98.49 Cataract extraction status, unspecified eye
CPT/HCPCS: 36415; 71046; 80048; 80053; 81001; 83735; 83880; 84443; 84484; 85025; 85379; 85610; 85730; 93005; 93306; 96361; 96365; 96366; 99291

== ENCOUNTER → 2022-08-16 | Outpatient (CLI) | payer MEDICARE ==
[2022-08-16 13:13] LABS: African American GFR (CKD) >90 (>60 ml/min/1.73 sqM); Anion Gap 4 mmol/L; Blood Urea Nitrogen 16 mg/dL (7-17); Carbon Dioxide 30 mmol/L (22-30); Chloride 105 mmol/L (98-107); Non-African American GFR(CKD) 81 (>60 ml/min/1.73 sqM); Potassium 4.8 mmol/L (3.5-5.1); Sodium 139 mmol/L (137-145)
[2022-08-16 18:25] LABS: HCT 41.4 % (37.2-46.3); HGB 13.3 g/dL (12.0-15.0); MCHC 32.1 g/dL (32.0-37.0); MCV 99.8 fL (80.0-97.0); Mean Platelet Volume 11.1 fL (9.5-12.2); NRBC Per 100 WBC 0 /100 WBCS (0.0-0.0); Platelet Count 243 X 10*3/uL (140-440); RBC 4.15 X 10*6/uL (4.10-5.20); RDW 12.5 % (11.5-14.5); WBC 6.53 X 10*3/uL (4.50-10.00)
== END | disposition home or self-care (01) ==
LOC: LABWHC1 12:13
PROVIDERS: ATTEND Internal Medicine Clinical Cardiac Electrophysiology
DX: Z01.812 Encounter for preprocedural laboratory examination (principal); I48.0 Paroxysmal atrial fibrillation
CPT/HCPCS: 36415; 80051; 82565; 84520; 85027

== ENCOUNTER → 2023-01-25 | Outpatient (CLI) | payer MEDICARE ==
[2023-01-25 15:37] LABS: HCT 41.3 % (37.2-46.3); MCH 30.2 pg (27.0-32.0); MCHC 31.5 d/dL (32.0-37.0); MCV 95.8 FL (80.0-97.0); Mean Platelet Volume 10.9 FL (9.5-12.2); NRBC Per 100 WBC 0 X 10*3/uL (0.00-0.01); Platelet Count 231 X 10*3/uL (140-440); RBC 4.31 X 10*6/uL (4.10-5.20); RDW 14.2 % (11.5-14.5); WBC 6.01 X 10*3/uL (4.50-10.00)
[2023-01-25 15:50] LABS: ALT 15 U/L (8-44); AST 24 U/L (13-35); Albumin 4.3 d/dL (3.8-4.9); Albumin/Globulin Ratio 1.65 Ratio (1.60-3.17); Alkaline Phosphatase 64 U/L (41-126); BUN/Creat Ratio 15.56 Ratio (12.00-20.00); C Reactive Protein <0.30 mg/dL (0.00-0.80); Calcium 10.1 mg/dL (8.7-10.3); Carbon Dioxide 27.2 mmol/L (21.6-31.8); Chloride 106 mmol/L (96-109); Creatine Kinase 91 U/L (26-186); Globulin 2.6 d/dL (1.6-3.3); Glucose 100 mg/dL (70-110); Magnesium 2.3 mg/dL (1.5-2.4); Potassium 5.1 mmol/L (3.5-5.5); Sodium 143 mmol/L (135-145); Total Bilirubin 0.3 mg/dL (0.3-1.2); Total Protein 6.9 d/dL (6.2-8.2)
== END | disposition home or self-care (01) ==
LOC: LABWHC1 09:24
PROVIDERS: ATTEND Nurse Practitioner Adult Health
DX: I10 Essential (primary) hypertension (principal); I47.1 Supraventricular tachycardia; I48.0 Paroxysmal atrial fibrillation; R07.9 Chest pain, unspecified
CPT/HCPCS: 36415; 80053; 82550; 83036; 83735; 84443; 85027; 86140

== ENCOUNTER → 2023-02-09 | Outpatient (CLI) | payer MEDICARE ==
--- NOTE | 2023-02-14 22:07 | MR ---
EXAMINATION TYPE: MR shoulder LT wo con DATE OF EXAM: 02/09/2023 COMPARISON: None HISTORY: 72-year-old female M7 5.115 RT Shoulder pain TECHNIQUE: Multiplanar, multisequence imaging of the left shoulder is performed without contrast. FINDINGS: There is intrinsic linear signal within the intracapsular portion of the long head biceps tendon sugg esting a split tear extending to the anchor. Possibly extending to the junction with the extracapsula r portion. Mild tenosynovial fluid. There is heterogeneity and thickening of the subscapularis tendon. The tendon appears intact. There is a full-thickness tear of the anterior to mid supraspinatus tendon measuring 1.9 cm long and 2.1 cm AP. Bursal sided fraying of the infraspinatus tendon. Mild fatty streaks within the supraspinatus and infraspinatus muscle bellies with overall preserved m uscle bulk. There is a toxu-mz-hklzgnoc effusion within the subacromial/subdeltoid bursa communicating with the g lenoid humeral joint. Mild irregular cartilage loss throughout the glenohumeral joint with mild glenohumeral joint effusion . There is moderate to severe degenerative change at the AC joint with joint space narrowing, capsular hypertrophy, subchondral degenerative marrow signal change, and inferior spurring which has mild cont act onto the underlying cuff. There is abnormal signal within the superior glenoid labrum extending from the biceps anchor back to the superior aspect of the posterior labrum. No para labral cyst is seen. No Hill-Sachs deformity or os acromiale. No suspicious bone marrow replacement. Mild patchy red marrow hyperplasia which may be seen in the se tting of anemia, obesity, smoking, and chronic disease. IMPRESSION: 1. Full-thickness tear of the anterior to mid supraspinatus tendon measuring 1.9 cm long and 2.1 cm A P. 2. Prominent bursal sided fraying of the infraspinatus tendon but without discrete tear. Both of thes e tendons show minimal fatty streaks within their muscle bellies but overall preserved muscle bulk. 3. Moderate to severe AC joint OA with inferior spurring which may be contributing to some subacromia l impingement. 4. Mild glenohumeral joint OA. SLAP tear extending from the biceps anchor back to the superior aspect of the posterior labrum. 5. Long head biceps tendon longitudinal tear extends from the biceps anchor to the junction with the extracapsular portion.
== END | disposition home or self-care (01) ==
LOC: RADMRIMAIN 12:26
PROVIDERS: ATTEND Orthopaedic Surgery
DX: M19.012 Primary osteoarthritis, left shoulder (principal); S43.432A Superior glenoid labrum lesion of left shoulder, initial encounter; S46.112A Strain of muscle, fascia and tendon of long head of biceps, left arm, initial encounter; M75.112 Incomplete rotator cuff tear or rupture of left shoulder, not specified as traumatic; X58.XXXA Exposure to other specified factors, initial encounter

== ENCOUNTER 2023-07-02 13:48 | Observation (INO) | payer MEDICARE ==
[2023-07-02 14:27] LABS: Basophils % (A) 1 %; Eosinophils # (A) 0.3 k/uL (0-0.7); Eosinophils % (A) 4 %; HCT 40.2 % (34.0-46.0); HGB 13.3 gm/dL (11.4-16.0); Lymphocytes # (A) 1.7 k/uL (1.0-4.8); Lymphocytes % (A) 22 %; MCH 32.6 pg (25.0-35.0); MCHC 33.2 g/dL (31.0-37.0); MCV 98.3 fL (80.0-100.0); Mean Platelet Volume 8.1; Monocytes # (A) 0.4 k/uL (0-1.0); Monocytes % (A) 5 %; Neutrophils % (A) 66 %; Platelet Count 217 k/uL (150-450); RBC 4.09 m/uL (3.80-5.40); RDW 13.3 % (11.5-15.5); WBC 7.5 k/uL (3.8-10.6)
[2023-07-02 14:41] LABS: INR 1.2 (<1.2); Prothrombin Time 12.5 sec (10.0-12.5)
[2023-07-02 14:48] LABS: ALT 22 U/L (4-34); AST 39 U/L (14-36); African American GFR (CKD) >90 (>60 ml/min/1.73 sqM); Albumin 3.7 g/dL (3.5-5.0); Alkaline Phosphatase 88 U/L (38-126); Anion Gap 11 mmol/L; Blood Urea Nitrogen 16 mg/dL (7-17); Calcium 9.7 mg/dL (8.4-10.2); Carbon Dioxide 23 mmol/L (22-30); Chloride 108 mmol/L (98-107); Glucose 109 mg/dL (74-99); Non-African American GFR(CKD) 81 (>60 ml/min/1.73 sqM); Potassium 4.7 mmol/L (3.5-5.1); Sodium 142 mmol/L (137-145); Total Bilirubin 0.5 mg/dL (0.2-1.3); Total Protein 6.4 g/dL (6.3-8.2)
--- NOTE | 2023-07-02 14:56 | ED ---
GI Bleed HPI - General Chief complaint: GI Bleed Stated complaint: GI Bleed Time Seen by Provider: 07/02/23 14:34 Source: patient, RN notes reviewed, old records reviewed Mode of arrival: ambulatory Limitations: no limitations - History of Present Illness Initial comments: This is a 73-year-old female to the Emergency Room for evaluation patient presents emergency department today for evaluation of GI bleed bright red blood per rectum patient is a fibrillation on blood thinners MD complaint: blood on toilet paper, blood streaked stool -: days(s) Radiation: none Severity scale (1-10): 7 Quality: painless, burning Consistency: constant Improves with: none Worsens with: none Context: history of GI bleed Associated Symptoms: denies other symptoms - Related Data Home Medications Medication Instructions Recorded Confirmed Amitriptyline HCl [Elavil] 10 mg PO HS 06/02/14 07/02/23 oxyCODONE-APAP 5-325MG [Percocet 1 tab PO QID PRN 06/02/14 07/02/23 5-325 mg] Vit C/E/Zn/Coppr/Lutein/Zeaxan 1 cap PO BID 11/19/18 07/02/23 [Preservision Areds 2 Softgel] Losartan Potassium [Cozaar] 25 mg PO BID 02/22/20 07/02/23 Levothyroxine Sodium [Euthyrox] 50 mcg PO DAILY 03/28/22 07/02/23 Rosuvastatin Calcium 5 mg PO HS 06/19/22 07/02/23 Metoprolol Succinate [Toprol XL] 50 mg PO HS 08/17/22 07/02/23 Rivaroxaban [Xarelto] 20 mg PO DAILY 08/17/22 07/02/23 Metoprolol Succinate (ER) [Toprol 100 mg PO DAILY 07/02/23 07/02/23 XL] Propafenone [Rythmol] 225 mg PO BID 07/02/23 07/02/23 Previous Rx's Medication Instructions Recorded Pantoprazole [Protonix] 40 mg PO BID #60 tab 07/04/23 Allergies Allergy/AdvReac Type Severity Reaction Status Date / Time Iodine and Iodide Containing Allergy Severe Rash/Hives, Verified 07/02/23 18:37 Produc Dyspnea, elevated blood pressure cobalt Allergy Unknown allergy Verified 07/02/23 18:37 testing positive nickel Allergy Unknown Allergy Verified 07/02/23 18:37 testing positive shellfish derived [Shellfish] Allergy Unknown Rash, Verified 07/02/23 18:37 dyspnea, elevated bloodpressure COVID-19 vaccine, mRNA, Allergy Rash/Hives Verified 07/02/23 18:37 [id number], regadenoson [From Lexiscan] Allergy Rash/Hives. Verified 07/02/23 18:37 codeine AdvReac Nausea & Verified 07/02/23 18:37 Vomiting morphine AdvReac VOMITING(SE Verified 07/02/23 18:37 JESI) Review of Systems ROS Statement: Those systems with pertinent positive or pertinent negative responses have been documented in the HPI. ROS Other: All systems not noted in ROS Statement are negative. Past Medical History Past Medical History: Atrial Fibrillation, Eye Disorder, GERD/Reflux, Hyperlipidemia, Hypertension, Mitral Valve Prolapse (MVP), Osteoarthritis (OA), Sleep Apnea/CPAP/BIPAP, Thyroid Disorder Additional Past Medical History / Comment(s): See Dr Miles H&P,no cpap,DDD, STENOSIS & CURVATURE OF SPINE-"spinal fluid leak"., MIGRAINE HEADACHES, MACULAR DEGENERATION-receives kemi eye injections every 4 weeks, CHRONIC CONSTIPATION., B LADDER LEAKAGE,sciatica,covid infection Jul 2021 History of Any Multi-Drug Resistant Organisms: None Reported Past Surgical History: Back Surgery, Hysterectomy, Orthopedic Surgery, Tonsillectomy Additional Past Surgical History / Comment(s): RIGHT SHOULDER SURGERY X5 WITH ROTATOR CUFF REPAIR AND REVERSE SHOULDER WITH RODS., MULTIPLE BACK SURGERIES WITH CAGE & PLATE. , LEFT KNEE ARTHROSCOPIC, RIGHT CARPAL TUNNEL RELEASE., INJECTIONS FOR BLADDER LEAKAGE,kemi cataract,pain clinic procedures, COLONOSCOPY, EGD Past Anesthesia/Blood Transfusion Reactions: No Reported Reaction Past Psychological History: Anxiety Smoking Status: Never smoker Past Alcohol Use History: None Reported Past Drug Use History: None Reported - Past Family History Mother Family Medical History: No Reported History Brother(s) Family Medical History: Deep Vein Thrombosis (DVT), Rheumatoid Arthritis (RA) Additional Family Medical History / Comment(s): brain aneurysm BROTHER Family Medical History: Cancer Additional Family Medical History / Comment(s): 2ND BROTHER OF LUNG CANCER General Exam Limitations: no limitations General appearance: alert, in no apparent distress Head exam: Present: atraumatic, normocephalic, normal inspection Eye exam: Present: normal appearance, PERRL, EOMI. Absent: scleral icterus, conjunctival injection, periorbital swelling ENT exam: Present: normal exam, mucous membranes moist Neck exam: Present: normal inspection. Absent: tenderness, meningismus, lymphadenopathy Respiratory exam: Present: normal lung sounds bilaterally. Absent: respiratory distress, wheezes, rales, rhonchi, stridor Cardiovascular Exam: Present: regular rate, normal rhythm, normal heart sounds. Absent: systolic murmur, diastolic murmur, rubs, gallop, clicks GI/Abdominal exam: Present: soft, normal bowel sounds. Absent: distended, tenderness, guarding, rebound, rigid Extremities exam: Present: normal inspection, full ROM, normal capillary refill. Absent: tenderness, pedal edema, joint swelling, calf tenderness Back exam: Present: normal inspection Neurological exam: Present: alert, oriented X3, CN II-XII intact Psychiatric exam: Present: normal affect, normal mood Skin exam: Present: warm, dry, intact, normal color. Absent: rash Course Vital Signs 07/02/23 07/02/23 07/02/23 14:02 15:10 16:00 Temperature 98.9 F Pulse Rate 78 69 63 Pulse Rate [ Pulse Oximetery ] Respiratory 20 18 18 Rate Blood Pressure 146/80 168/77 161/75 Blood Pressure [Right Arm] O2 Sat by Pulse 96 98 97 Oximetry 07/02/23 07/02/23 07/02/23 18:00 20:02 21:30 Temperature 98.4 F Pulse Rate 63 65 Pulse Rate [ 72 Pulse Oximetery ] Respiratory 18 18 18 Rate Blood Pressure 138/78 156/84 Blood Pressure 121/67 [Right Arm] O2 Sat by Pulse 98 96 95 Oximetry - Reevaluation(s) Reevaluation #1: 07/02/23 18:31 Record is reviewed Reevaluation #2: 07/02/23 18:31 Still having active GI bleed Reevaluation #3: 07/02/23 18:32 Patient informed of results and questions answered Reevaluation #4: 07/02/23 18:32 Was pt. sent in by a medical professional or institution (, PA, [employer], urgent care, hospital, or prison...) When possible be specific @ -no Did you speak to anyone other than the patient for history (EMS, parent, family, police, friend...)? What history was obtained from this source @ -no Did you review nursing and triage notes (agree or disagree)? Why? @ -agree Are old charts reviewed (outside hosp., previous admission, EMS record, old EKG, old radiological studies, urgent care reports/EKG's, prison records)? Report findings @ -yes Differential Diagnosis (chest pain, altered mental status, abdominal pain women, abdominal pain men, vaginal bleeding, weakness, fever, dyspnea, syncope, headache, dizziness, GI bleed, back pain, seizure, CVA, palpatations, mental health, musculoskeletal)? @ -prior EKG interpreted by me (3pts min.). @ -no X-rays interpreted by me (1pt min.). @ -no CT interpreted by me (1pt min.). @ -no U/S interpreted by me (1pt. min.). @ -no What testing was considered but not performed or refused? (CT, X-rays, U/S, labs)? Why? @ -none What meds were considered but not given or refused? Why? @ -none Did you discuss the management of the patient with other professionals (professionals i.e. , PA, [employer], lab, RT, psych nurse, social services designee, air conditioning installer, teacher, traffic officer, outpatient case manager)? Give summary @ -no Was smoking cessation discussed for >3mins.? @ -no Was critical care preformed (if so, how long)? @ -yes31 Were there social determinants of health that impacted care today? How? (Homelessness, low income, unemployed, alcoholism, drug addiction, transport ation, low edu. Level, literacy, decrease access to med. care, mcc, rehab)? @ -none Was there de-escalation of care discussed even if they declined (Discuss DNR or withdrawal of care, Hospice)? DNR status @ -no What co-morbidities impacted this encounter? (DM, HTN, Smoking, COPD, CAD, Cancer, CVA, ARF, Chemo, Hep., AIDS, mental health diagnosis, sleep apnea, morbid obesity)? @ -none Was patient admitted / discharged? Hospital course, mention meds given and route, prescriptions, significant lab abnormalities, going to OR and other pertinent info. @ -73 female to the emergency department for evaluation of GI bleed, does have atrial fibrillation with RVR and coagulopathy. Patient will be admitted for monitoring of hemoglobin possibility of transfusion Admitted Undiagnosed new problem with uncertain prognosis? @ -no Drug Therapy requiring intensive monitoring for toxicity (Heparin, Nitro, Insulin, Cardizem)? @ -no Were any procedures done? @ -no Diagnosis/symptom? @ -Coagulopathy, GI bleed, anemia Acute, or Chronic, or Acute on Chronic? @ -Acute Uncomplicated (without systemic symptoms) or Complicated (systemic symptoms)? @ -Complicated Side effects of treatment? @ -no Exacerbation, Progression, or Severe Exacerbation? @ -exacerbation Poses a threat to life or bodily function? How? (Chest pain, USA, MA, pneumonia, PE, COPD, DKA, ARF, appy, cholecystitis, CVA, Diverticulitis, Homicidal, Suicidal, threat to staff... and all critical care pts) @ -yes with GI bleed and coagulopathy Reevaluation #5: 07/02/23 18:32 Differential Weakness: Hypoglycemia, shock, sepsis, hyponatremia, anemia, infection, MA, ETOH, adverse medicine reaction, overdose, stroke, this is not meant to be an all-inclusive list. - Consultations Consultation #1: spoke w admitting physicians agree to admit this patient Medical Decision Making - Medical Decision Making 73 female with bright red blood per rectum acute lower GI bleed on Xeralto for atrophic relation. Patient will be admitted for monitoring of bleeding - Lab Data Result diagrams: 07/04/23 08:03 07/03/23 06:16 Lab Results 07/02/23 07/02/23 07/02/23 Range/Units 14:18 14:18 14:18 WBC 7.5 (3.8-10.6) k/uL RBC 4.09 (3.80-5.40) m/uL Hgb 13.3 (11.4-16.0) gm/dL Hct 40.2 (34.0-46.0) % MCV 98.3 (80.0-100.0) fL MCH 32.6 (25.0-35.0) pg MCHC 33.2 (31.0-37.0) g/dL RDW 13.3 (11.5-15.5) % Plt Count 217 (150-450) k/uL MPV 8.1 Neutrophils % 66 % Lymphocytes % 22 % Monocytes % 5 % Eosinophils % 4 % Basophils % 1 % Neutrophils # 5.0 (1.3-7.7) k/uL Lymphocytes # 1.7 (1.0-4.8) k/uL Monocytes # 0.4 (0-1.0) k/uL Eosinophils # 0.3 (0-0.7) k/uL Basophils # 0.0 (0-0.2) k/uL PT 12.5 (10.0-12.5) sec INR 1.2 H (<1.2) APTT 27.0 (22.0-30.0) sec Sodium 142 (137-145) mmol/L Potassium 4.7 (3.5-5.1) mmol/L Chloride 108 H (98-107) mmol/L Carbon Dioxide 23 (22-30) mmol/L Anion Gap 11 mmol/L BUN 16 (7-17) mg/dL Creatinine 0.73 (0.52-1.04) mg/dL Est GFR (CKD-EPI)AfAm >90 (>60 ml/min/1.73 sqM) Est GFR (CKD-EPI)NonAf 81 (>60 ml/min/1.73 sqM) Glucose 109 H (74-99) mg/dL Calcium 9.7 (8.4-10.2) mg/dL Total Bilirubin 0.5 (0.2-1.3) mg/dL AST 39 H (14-36) U/L ALT 22 (4-34) U/L Alkaline Phosphatase 88 (38-126) U/L Troponin I (0.000-0.034) ng/mL Total Protein 6.4 (6.3-8.2) g/dL Albumin 3.7 (3.5-5.0) g/dL 07/02/23 Range/Units 14:18 WBC (3.8-10.6) k/uL RBC (3.80-5.40) m/uL Hgb (11.4-16.0) gm/dL Hct (34.0-46.0) % MCV (80.0-100.0) fL MCH (25.0-35.0) pg MCHC (31.0-37.0) g/dL RDW (11.5-15.5) % Plt Count (150-450) k/uL MPV Neutrophils % % Lymphocytes % % Monocytes % % Eosinophils % % Basophils % % Neutrophils # (1.3-7.7) k/uL Lymphocytes # (1.0-4.8) k/uL Monocytes # (0-1.0) k/uL Eosinophils # (0-0.7) k/uL Basophils # (0-0.2) k/uL PT (10.0-12.5) sec INR (<1.2) APTT (22.0-30.0) sec Sodium (137-145) mmol/L Potassium (3.5-5.1) mmol/L Chloride (98-107) mmol/L Carbon Dioxide (22-30) mmol/L Anion Gap mmol/L BUN (7-17) mg/dL Creatinine (0.52-1.04) mg/dL Est GFR (CKD-EPI)AfAm (>60 ml/min/1.73 sqM) Est GFR (CKD-EPI)NonAf (>60 ml/min/1.73 sqM) Glucose (74-99) mg/dL Calcium (8.4-10.2) mg/dL Total Bilirubin (0.2-1.3) mg/dL AST (14-36) U/L ALT (4-34) U/L Alkaline Phosphatase (38-126) U/L Troponin I <0.012 (0.000-0.034) ng/mL Total Protein (6.3-8.2) g/dL Albumin (3.5-5.0) g/dL Critical Care Time Critical Care Time: Yes Total Critical Care Time: 31 Disposition Clinical Impression: Atrial fibrillation, Coagulopathy, Lower gastrointestinal hemorrhage Disposition: ADMITTED IP TO THIS [facility] Condition: Serious Is patient prescribed a controlled substance at d/c from ED?: No Time of Disposition: 17:00
[2023-07-02] MEDS ORDERED: ONDANSETRON 4 MG/2 ML VIAL IVP PRN (18:29)
[2023-07-02] MEDS ORDERED: NALOXONE 0.4 MG/ML 1 ML VIAL IV PRN (18:29)
[2023-07-02 19:16] LABS: Basophils # (A) 0.1 k/uL (0-0.2); Basophils % (A) 1 %; Eosinophils # (A) 0.3 k/uL (0-0.7); Eosinophils % (A) 4 %; HCT 38.8 % (34.0-46.0); HGB 12.7 gm/dL (11.4-16.0); Lymphocytes % (A) 27 %; MCH 32.1 pg (25.0-35.0); MCHC 32.8 g/dL (31.0-37.0); Mean Platelet Volume 8.1; Monocytes # (A) 0.4 k/uL (0-1.0); Monocytes % (A) 5 %; Neutrophils # (A) 4.5 k/uL (1.3-7.7); Neutrophils % (A) 61 %; Platelet Count 193 k/uL (150-450); RBC 3.95 m/uL (3.80-5.40); RDW 13.2 % (11.5-15.5); WBC 7.4 k/uL (3.8-10.6)
[2023-07-02] MEDS ORDERED: PANTOPRAZOLE 40 MG/10 ML VIAL IVP STA (19:16)
[2023-07-02] MEDS ORDERED: HYDROmorphone 0.5 MG/0.5 ML SYRINGE IVP STA (19:18)
[2023-07-02] MEDS ORDERED: HYDROmorphone 0.5 MG/0.5 ML SYRINGE IVP PRN (19:18)
[2023-07-02] MEDS: AMITRIPTYLINE HCL 10 MG TAB PO SCH (21:38)
[2023-07-02] MEDS: LOSARTAN 25 MG TAB PO SCH (23:18)
[2023-07-02] MEDS: METOPROLOL SUCCINATE (ER) 50 MG TAB.ER.24H PO SCH (23:18)
[2023-07-02] MEDS: ATORVASTATIN 10 MG TAB PO SCH (23:18)
[2023-07-02] MEDS: PROPAFENONE 225 MG TAB PO SCH (23:18)
[2023-07-03] MEDS: LEVOTHYROXINE 50 MCG TAB PO SCH (05:49)
[2023-07-03 06:49] LABS: Basophils % (A) 1 %; Eosinophils # (A) 0.3 k/uL (0-0.7); Eosinophils % (A) 5 %; HGB 12.4 gm/dL (11.4-16.0); Lymphocytes % (A) 29 %; MCH 32.8 pg (25.0-35.0); MCHC 33.4 g/dL (31.0-37.0); MCV 98.4 fL (80.0-100.0); Mean Platelet Volume 8.9; Monocytes # (A) 0.4 k/uL (0-1.0); Monocytes % (A) 6 %; Neutrophils # (A) 3.9 k/uL (1.3-7.7); Neutrophils % (A) 57 %; Platelet Count 189 k/uL (150-450); RBC 3.77 m/uL (3.80-5.40); RDW 13.2 % (11.5-15.5); WBC 6.8 k/uL (3.8-10.6)
[2023-07-03 06:56] LABS: African American GFR (CKD) >90 (>60 ml/min/1.73 sqM); Anion Gap 6 mmol/L; Blood Urea Nitrogen 14 mg/dL (7-17); Calcium 9.3 mg/dL (8.4-10.2); Carbon Dioxide 24 mmol/L (22-30); Chloride 107 mmol/L (98-107); Glucose 96 mg/dL (74-99); Non-African American GFR(CKD) 86 (>60 ml/min/1.73 sqM); Potassium 4.4 mmol/L (3.5-5.1); Sodium 137 mmol/L (137-145)
[2023-07-03] MEDS ORDERED: ALPRAZolam 0.25 MG TAB PO PRN (08:49)
[2023-07-03] MEDS ORDERED: ALPRAZolam 0.25 MG TAB PO STA (08:49)
--- NOTE | 2023-07-03 08:51 | P.HPIM ---
History of Present Illness This is a pleasant 73 years old female with past medical history of multiple medical problems including history of back pain and status post back surgeries, she has 5. Rotator cuff surgeries on her right shoulder and she is on multiple pain medication, she takes oxycodone 5/325 mg also she is taking Tylenol and Advil as needed and she's been taking it for the last few days. Yesterday she started having some blood in her stool, as bright red blood and blood clots. She had no bowel movement yesterday which is not unusual for her as she is taking a lot of pain medication, but bowel movement one day earlier was brownish reddish in color. She is complaining of from mild lower abdominal abdominal pain and tenderness, felt like sharp nonradiating with no precipitating or relieving factors. She's been seen by Dr. Han planned to undergo colonoscopy tomorrow. 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 She is also been complaining of from chest pain on and off since August 2022 when she had ablation procedure with Dr. Zavala, her chest pain is mild, on the left side nonradiating felt like sharp, on and off, as above. She said that she has history of valvular heart disease with 80% blockage but she is not sure which are 12. She denies smoking alcohol or illicit drugs. Currently she denies dysuria or urgency. No dyspnea or coughing. No headache dizziness weakness or numbness. Her vitals are stable, blood pressure is 129/80. CBC is unremarkable with hemoglobin within the normal limits of 13.3 and 12.7. INR, BMP, liver enzymes and troponin are all unremarkable. No EKG in the standard patient received IV Protonix twice daily and admitted to the hospital. Review of Systems Review of systems CONSTITUTIONAL: No fever, no malaise, no fatigue. HEENT: No recent visual problems or hearing problems. Denied any sore throat. CARDIOVASCULAR: No orthopnea, PND, no palpitations, no syncope. PULMONARY: No shortness of breath, no cough, no hemoptysis. GASTROINTESTINAL: No diarrhea, no nausea, no vomiting,. Normoactive bowel sounds. NEUROLOGICAL: No headaches, no weakness, no numbness. HEMATOLOGICAL: Denies any bleeding or petechiae. GENITOURINARY: Denies any burning micturition, frequency, or urgency. MUSCULOSKELETAL/RHEUMATOLOGICAL: Denies any joint pain, swelling, or any muscle pain. ENDOCRINE: Denies any polyuria or polydipsia. Past Medical History Past Medical History: Atrial Fibrillation, Eye Disorder, GERD/Reflux, Hyperlipidemia, Hypertension, Mitral Valve Prolapse (MVP), Osteoarthritis (OA), Sleep Apnea/CPAP/BIPAP, Thyroid Disorder Additional Past Medical History / Comment(s): See Dr Miles H&P,no cpap,DDD, STENOSIS & CURVATURE OF SPINE-"spinal fluid leak"., MIGRAINE HEADACHES, MACULAR DEGENERATION-receives kemi eye injections every 4 weeks, CHRONIC CONSTIPATION., BLADDER LEAKAGE,sciatica,covid infection Jul 2021 History of Any Multi-Drug Resistant Organisms: None Reported Past Surgical History: Back Surgery, Hysterectomy, Orthopedic Surgery, Tonsillectomy Additional Past Surgical History / Comment(s): RIGHT SHOULDER SURGERY X5 WITH ROTATOR CUFF REPAIR AND REVERSE SHOULDER WITH RODS., MULTIPLE BACK SURGERIES WITH CAGE & PLATE. , LEFT KNEE ARTHROSCOPIC, RIGHT CARPAL TUNNEL RELEASE., INJECTIONS FOR BLADDER LEAKAGE,kemi cataract,pain clinic procedures, COLONOSCOPY, EGD Past Anesthesia/Blood Transfusion Reactions: No Reported Reaction Past Psychological History: Anxiety Smoking Status: Never smoker Past Alcohol Use History: None Reported Past Drug Use History: None Reported - Past Family History Mother Family Medical History: No Reported History Brother(s) Family Medical History: Deep Vein Thrombosis (DVT), Rheumatoid Arthritis (RA) Additional Family Medical History / Comment(s): brain aneurysm BROTHER Family Medical History: Cancer Additional Family Medical History / Comment(s): 2ND BROTHER OF LUNG CANCER Medications and Allergies Home Medications Medication Instructions Recorded Confirmed Type Amitriptyline HCl [Elavil] 10 mg PO HS 06/02/14 07/02/23 History oxyCODONE-APAP 5-325MG [Percocet 1 tab PO QID PRN 06/02/14 07/02/23 History 5-325 mg] Aspirin [Adult Low Dose Aspirin EC] 81 mg PO DAILY 11/19/18 07/02/23 History Vit C/E/Zn/Coppr/Lutein/Zeaxan 1 cap PO BID 11/19/18 07/02/23 History [Preservision Areds 2 Softgel] Losartan Potassium [Cozaar] 25 mg PO BID 02/22/20 07/02/23 History Pantoprazole Sodium 20 mg PO BID 03/15/21 07/02/23 History Levothyroxine Sodium [Euthyrox] 50 mcg PO DAILY 03/28/22 07/02/23 History Rosuvastatin Calcium 5 mg PO HS 06/19/22 07/02/23 History Metoprolol Succinate [Toprol XL] 50 mg PO HS 08/17/22 07/02/23 History Rivaroxaban [Xarelto] 20 mg PO DAILY 08/17/22 07/02/23 History Metoprolol Succinate (ER) [Toprol 100 mg PO DAILY 07/02/23 07/02/23 History Xl] Propafenone [Rythmol] 225 mg PO BID 07/02/23 07/02/23 History Allergies Allergy/AdvReac Type Severity Reaction Status Date / Time Iodine and Iodide Containing Allergy Severe Rash/Hives, Verified 07/02/23 18:37 Produc Dyspnea, elevated blood pressure cobalt Allergy Unknown allergy Verified 07/02/23 18:37 testing positive nickel Allergy Unknown Allergy Verified 07/02/23 18:37 testing positive shellfish derived [Shellfish] Allergy Unknown Rash, Verified 07/02/23 18:37 dyspnea, elevated bloodpressure COVID-19 vaccine, mRNA, Allergy Rash/Hives Verified 07/02/23 18:37 [id number], regadenoson [From [employer]] Allergy Rash/Hives. Verified 07/02/23 18:37 codeine AdvReac Nausea & Verified 07/02/23 18:37 Vomiting morphine AdvReac VOMITING(SE Verified 07/02/23 18:37 JESI) Physical Exam Vitals: Vital Signs Temp Pulse Pulse Resp BP BP Pulse Ox 07/03/23 04:00 97.8 F 72 18 129/84 98 07/03/23 00:00 98.0 F 73 18 117/62 98 07/02/23 21:30 98.4 F 72 18 121/67 95 07/02/23 20:02 65 18 156/84 96 07/02/23 18:00 63 18 138/78 98 07/02/23 16:00 63 18 161/75 97 07/02/23 15:10 69 18 168/77 98 07/02/23 14:02 98.9 F 78 20 146/80 96 Intake and Output 12/19/23 12/20/23 12/20/23 22:59 06:59 14:59 Intake Total 240 Balance 240 Intake: Oral 240 Other: Voiding Method Bedside Commode Bedside Commode # Voids 1 Weight 79.379 kg GENERAL: The patient is alert and oriented x3, not in any acute distress. Well developed, well nourished. HEENT: Pupils are round and equally reacting to light. EOMI. No scleral icterus. No conjunctival pallor. Normocephalic, atraumatic. No pharyngeal erythema. No thyromegaly. CARDIOVASCULAR: S1 and S2 present. No murmurs, rubs, or gallops. PULMONARY: Chest is clear to auscultation, no wheezing , no crackles. -ABDOMEN: Soft, mild lower abdominal tenderness, no rebound tenderness or guarding, nondistended, normoactive bowel sounds. No palpable organomegaly. MUSCULOSKELETAL: No joint swelling or deformity. EXTREMITIES: No cyanosis, clubbing, or pedal edema. NEUROLOGICAL: Gross neurological examination did not reveal any focal deficits. SKIN: No rashes. no petechiae. Results CBC & Chem 7: 07/03/23 06:16 07/03/23 06:16 Labs: Abnormal Lab Results - Last 24 Hours (Table) 07/02/23 07/02/23 07/03/23 Range/Units 14:18 14:18 06:16 RBC 3.77 L (3.80-5.40) m/uL INR 1.2 H (<1.2) Chloride 108 H (98-107) mmol/L Glucose 109 H (74-99) mg/dL AST 39 H (14-36) U/L Thrombosis Risk Factor Assmnt - Choose All That Apply Any of the Below Risk Factors Present?: Yes Each Factor Represents 1 point: Obesity (BMI >25) Each Risk Factor Represents 3 Points: Age 75 years or older Thrombosis Risk Factor Assessment Total Risk Factor Score: 4 Thrombosis Risk Factor Assessment Level: Moderate Risk Assessment and Plan Assessment: Acute lower GI bleed associated with mild lower abdominal tenderness Ongoing chest pain on and off for about one year, rule out cardiac causes Ongoing chronic back pain, uncontrolled on several pain medication History of shoulder disease status post right rotator cuff surgery 5 Constipation Anxiety Chronic atrial fibrillation History of GERD Hypertension Hyperlipidemia Hypothyroidism history of sleep apnea. Plan: Patient hemoglobin is stable, we will keep monitoring hemoglobin GI team are planning for colonoscopy on 07/04 Aspirin and xarelto are on hold we'll do EKG and cardiology consult for ongoing chest pain although mild and chronic. Continue with pain medication Xanax for anxiety Patient is currently getting bowel preparation which help her constipation. Labs and medication were reviewed.. Continue same treatment. Continue with symptomatic treatment. Resume home medication. Monitor labs and vitals. DVT and GI prophylaxis. Further recommendations as per clinical course of the patient DVT prophylaxis: no Subcutaneous heparin, S CD GI Prophylaxis: Ppi Prognosis is guarded
[2023-07-03] MEDS: PROPAFENONE 225 MG TAB PO SCH ×2 (09:58→22:18)
[2023-07-03] MEDS: LOSARTAN 25 MG TAB PO SCH ×2 (09:58→21:53)
[2023-07-03] MEDS: METOPROLOL SUCCINATE (ER) 100 MG TAB.ER.24H PO SCH (09:58)
[2023-07-03] MEDS: PANTOPRAZOLE 40 MG/10 ML VIAL IVP SCH ×2 (09:58→21:53)
[2023-07-03] MEDS: oxyCODONE-APAP 5-325MG 1 EACH TAB PO PRN ×2 (10:04→15:27)
--- NOTE | 2023-07-03 10:18 | P.CRDCN ---
History of Present Illness Consult date: 07/03/23 Consult reason: chest pain History of present illness: History of present illness: This is a 73-year-old female patient of Dr. Miles past medical history of nonsustained atrial tachycardia, paroxysmal atrial fibrillation status post A. fib ablation in August of this year, chronic pericarditis on intracardiac echocardiogram, moderate aortic and moderate mitral regurgitation with preserved systolic function, mitral prolapse. We have been asked to evaluate the patient for chest pain. Patient presented to the hospital for bright red rectal bleeding and Xarelto has been placed on hold and GI consult and work up in progress. Patient states she has had chronic vague symptoms of chest. Palpitations, no lightheadedness or dizziness, no shortness of breath. EKG sinus rhythm with no acute ST changes Hemoglobin 12.4, electrolytes renal function normal. Troponin negative 1 Home cardiac medications: Aspirin 81 mg daily, losartan 25 mg twice daily, Toprol-XL 50 mg at bedtime, Rythmol 225 mg twice daily, Crestor 5 mg at bedtime, Xarelto 20 mg daily Cardiac catheterization 2000 no significant obstructive CAD. Evidence of mitral valve prolapse. Normal LV function. Echocardiogram performed 12/12/2022 revealed EF of 50-55%, moderate AR, moderate MR, MVP, posterior pericardial stripe. RVSP 28 mmHg. Ablation for atrial fibrillation 08/20/2022 Lexiscan stress test 08/07/2022 no evidence of reversible ischemia. Review Of Systems: At the time of my exam: CONSTITUTIONAL: Denies fever or chills. CARDIOVASCULAR: Denies chest pain, Denies shortness of breath, no orthopnea, PND or palpitations. RESPIRATORY: Denies cough. GASTROINTESTINAL: Denies abdominal pain, diarrhea, constipation, nausea or vomiting. MUSCULOSKELETAL: Denies myalgias. NEUROLOGIC: Denies numbness, tingling or weakness. ENDOCRINE: Denies fatigue, weight change, polydipsia or polyurina. GENITOURINARY: Denies burning, hematuria or urgency with micturation. HEMATOLOGIC: Denies history of anemia or bleeding. Physical examination: Gen: This is a 73-year-old female. She is resting on the edge of the bed and in no acute distress. VS: reviewed HEENT: Head is atraumatic, normocephalic. Pupils equal, round. Sclerae is anicteric. NECK: Supple. No JVD. LUNGS: Clear to auscultation. No wheezes or rhonchi. No intercostal retractions. HEART: Regular rate and rhythm. No murmur. ABDOMEN: Soft No tenderness. EXTREMITIES: No pedal edema. No calf tenderness. NEUROLOGICAL: Patient is awake, alert and oriented x3. Assessment: Atypical chest pain, acute coronary syndrome ruled out Rectal bleeding History of paroxysmal atrial fibrillation status post A. fib ablation in August of this year Moderate aortic and moderate mitral regurgitation Plan: Obtain second troponin Continue to hold Xarelto for rectal bleeding Repeat CBC tomorrow Further recommendations to follow based upon clinical course Thank you kindly for this consultation. Nurse practitioner note has been reviewed, I agree with documented findings and plan of care. Patient was seen and examined. Past Medical History Past Medical History: Atrial Fibrillation, Eye Disorder, GERD/Reflux, Hyperlipidemia, Hypertension, Mitral Valve Prolapse (MVP), Osteoarthritis (OA), Sleep Apnea/CPAP/BIPAP, Thyroid Disorder Additional Past Medical History / Comment(s): See Dr Miles H&P,no cpap,DDD, STENOSIS & CURVATURE OF SPINE-"spinal fluid leak"., MIGRAINE HEADACHES, MACULAR DEGENERATION-receives kemi eye injections every 4 weeks, CHRONIC CONSTIPATION., BLADDER LEAKAGE,sciatica,covid infection Jul 2021 History of Any Multi-Drug Resistant Organisms: None Reported Past Surgical History: Back Surgery, Hysterectomy, Orthopedic Surgery, Tonsillectomy Additional Past Surgical History / Comment(s): RIGHT SHOULDER SURGERY X5 WITH ROTATOR CUFF REPAIR AND REVERSE SHOULDER WITH RODS., MULTIPLE BACK SURGERIES WITH CAGE & PLATE. , LEFT KNEE ARTHROSCOPIC, RIGHT CARPAL TUNNEL RELEASE., INJECTIONS FOR BLADDER LEAKAGE,kemi cataract,pain clinic procedures, COLONOSCOPY, EGD Past Anesthesia/Blood Transfusion Reactions: No Reported Reaction Past Psychological History: Anxiety Smoking Status: Never smoker Past Alcohol Use History: None Reported Past Drug Use History: None Reported - Past Family History Mother Family Medical History: No Reported History Brother(s) Family Medical History: Deep Vein Thrombosis (DVT), Rheumatoid Arthritis (RA) Additional Family Medical History / Comment(s): brain aneurysm BROTHER Family Medical History: Cancer Additional Family Medical History / Comment(s): 2ND BROTHER OF LUNG CANCER Medications and Allergies Home Medications Medication Instructions Recorded Confirmed Type Amitriptyline HCl [Elavil] 10 mg PO HS 06/02/14 07/02/23 History oxyCODONE-APAP 5-325MG [Percocet 1 tab PO QID PRN 06/02/14 07/02/23 History 5-325 mg] Aspirin [Adult Low Dose Aspirin EC] 81 mg PO DAILY 11/19/18 07/02/23 History Vit C/E/Zn/Coppr/Lutein/Zeaxan 1 cap PO BID 11/19/18 07/02/23 History [Preservision Areds 2 Softgel] Losartan Potassium [Cozaar] 25 mg PO BID 02/22/20 07/02/23 History Pantoprazole Sodium 20 mg PO BID 03/15/21 07/02/23 History Levothyroxine Sodium [Euthyrox] 50 mcg PO DAILY 03/28/22 07/02/23 History Rosuvastatin Calcium 5 mg PO HS 06/19/22 07/02/23 History Metoprolol Succinate [Toprol XL] 50 mg PO HS 08/17/22 07/02/23 History Rivaroxaban [Xarelto] 20 mg PO DAILY 08/17/22 07/02/23 History Metoprolol Succinate (ER) [Toprol 100 mg PO DAILY 07/02/23 07/02/23 History Xl] Propafenone [Rythmol] 225 mg PO BID 07/02/23 07/02/23 History Allergies Allergy/AdvReac Type Severity Reaction Status Date / Time Iodine and Iodide Containing Allergy Severe Rash/Hives, Verified 07/02/23 18:37 Produc Dyspnea, elevated blood pressure cobalt Allergy Unknown allergy Verified 07/02/23 18:37 testing positive nickel Allergy Unknown Allergy Verified 07/02/23 18:37 testing positive shellfish derived [Shellfish] Allergy Unknown Rash, Verified 07/02/23 18:37 dyspnea, elevated bloodpressure COVID-19 vaccine, mRNA, Allergy Rash/Hives Verified 07/02/23 18:37 [id number], regadenoson [From Lexiscan] Allergy Rash/Hives. Verified 07/02/23 18:37 codeine AdvReac Nausea & Verified 07/02/23 18:37 Vomiting morphine AdvReac VOMITING(SE Verified 07/02/23 18:37 JESI) Physical Exam Vitals: Vital Signs Temp Pulse Pulse Resp BP BP Pulse Ox 07/03/23 04:00 97.8 F 72 18 129/84 98 07/03/23 00:00 98.0 F 73 18 117/62 98 07/02/23 21:30 98.4 F 72 18 121/67 95 07/02/23 20:02 65 18 156/84 96 07/02/23 18:00 63 18 138/78 98 07/02/23 16:00 63 18 161/75 97 07/02/23 15:10 69 18 168/77 98 07/02/23 14:02 98.9 F 78 20 146/80 96 Intake and Output 07/02/23 07/03/23 07/03/23 22:59 06:59 14:59 Intake Total 240 Balance 240 Intake: Oral 240 Other: Voiding Method Bedside Commode Bedside Commode # Voids 1 Weight 79.379 kg Results 07/03/23 06:16 07/03/23 06:16 Cardiac Enzymes 07/02/23 07/02/23 Range/Units 14:18 14:18 AST 39 H (14-36) U/L Troponin I <0.012 (0.000-0.034) ng/mL Coagulation 07/02/23 Range/Units 14:18 PT 12.5 (10.0-12.5) sec APTT 27.0 (22.0-30.0) sec CBC 07/02/23 07/02/23 07/03/23 Range/Units 14:18 18:55 06:16 WBC 7.5 7.4 6.8 (3.8-10.6) k/uL RBC 4.09 3.95 3.77 L (3.80-5.40) m/uL Hgb 13.3 12.7 12.4 (11.4-16.0) gm/dL Hct 40.2 38.8 37.0 (34.0-46.0) % Plt Count 217 193 189 (150-450) k/uL Comprehensive Metabolic Panel 07/02/23 07/03/23 Range/Units 14:18 06:16 Sodium 142 137 (137-145) mmol/L Potassium 4.7 4.4 (3.5-5.1) mmol/L Chloride 108 H 107 (98-107) mmol/L Carbon Dioxide 23 24 (22-30) mmol/L BUN 16 14 (7-17) mg/dL Creatinine 0.73 0.69 (0.52-1.04) mg/dL Glucose 109 H 96 (74-99) mg/dL Calcium 9.7 9.3 (8.4-10.2) mg/dL AST 39 H (14-36) U/L ALT 22 (4-34) U/L Alkaline Phosphatase 88 (38-126) U/L Total Protein 6.4 (6.3-8.2) g/dL Albumin 3.7 (3.5-5.0) g/dL Current Medications Generic Name Dose Route Start Last Admin Trade Name Freq PRN Reason Stop Dose Admin Alprazolam 0.25 mg 07/03/23 08:49 Alprazolam 0.25 Mg Tab PO BID PRN Anxiety Amitriptyline HCl 10 mg 07/02/23 21:00 07/02/23 21:38 Amitriptyline Hcl 10 Mg Tab PO 10 mg HS LAN Administration Atorvastatin Calcium 10 mg 07/02/23 22:30 07/02/23 23:18 Atorvastatin 10 Mg Tab PO 10 mg HS LAN Administration Hydromorphone HCl 0.5 mg 07/02/23 19:18 Hydromorphone 0.5 Mg/0.5 Ml Syringe IVP Q4HR PRN SEVERE Pain 7-10 Levothyroxine Sodium 50 mcg 07/03/23 06:30 07/03/23 05:49 Levothyroxine 50 Mcg Tab PO 50 mcg DAILY@0630 LAN Administration Losartan Potassium 25 mg 07/02/23 22:30 07/02/23 23:18 Losartan 25 Mg Tab PO 25 mg BID LAN Administration Metoprolol Succinate 50 mg 07/02/23 22:30 07/02/23 23:18 Metoprolol Succinate (Er) 50 Mg Tab.Er.24h PO 50 mg HS LAN Administration Metoprolol Succinate 100 mg 07/03/23 09:00 Metoprolol Succinate (Er) 100 Mg Tab.Er.24h PO DAILY LAN Naloxone HCl 0.2 mg 07/02/23 18:29 Naloxone 0.4 Mg/Ml 1 Ml Vial IV Q2M PRN Opioid Reversal Ondansetron HCl 4 mg 07/02/23 18:29 Ondansetron 4 Mg/2 Ml Vial IVP Q8HR PRN Nausea And Vomiting Oxycodone/Acetaminophen 1 each 07/02/23 19:18 Oxycodone-Apap 5-325mg 1 Each Tab PO QID PRN MODERATE Pain 4-6 Pantoprazole Sodium 40 mg 07/03/23 09:00 Pantoprazole 40 Mg/10 Ml Vial IVP BID LAN Polyethylene Glycol/Electrolytes 4,000 ml 07/03/23 16:00 Peg 3350 (236 Gm/Btl) + Lytes 4,000 Ml Bottle PO 07/03/23 16:01 ONCE ONE Propafenone HCl 225 mg 07/02/23 22:30 07/02/23 23:18 Propafenone 225 Mg Tab PO 225 mg BID LAN Administration Intake and Output 07/02/23 07/03/23 07/03/23 22:59 06:59 14:59 Intake Total 240 Balance 240 Intake: Oral 240 Other: Voiding Method Bedside Commode Bedside Commode # Voids 1 Weight 79.379 kg 07/03/23 06:16 07/03/23 06:16
[2023-07-03] MEDS ORDERED: PEG 3350 (236 GM/BTL) + LYTES 4,000 ML BOTTLE PO ONE ×2 (12:09→16:00)
--- NOTE | 2023-07-03 12:40 | P.GSCN ---
History of Present Illness Consult date: 07/03/23 History of present illness: CHIEF COMPLAINT: GI bleed HISTORY OF PRESENT ILLNESS: This is a 73-year-old female who presented to the hospital with complaints of bright red blood from rectum with blood clots that started yesterday. She does report some cramping abdominal discomfort in the lower abdomen. She denies any nausea or vomiting. She does take Xarelto at [facility] for her atrial fibrillation. Last dose was yesterday morning. Patient also reports taking Advil almost daily for her arthritis pain. Her last EGD was in March 2021 which was reported as normal and last colonoscopy was in March 2020 which was reported as normal findings. Hemoglobin on admission 13.3 down to 12.4. She's had no further bleeding since coming to the floor yesterday. Patient does report having issues with constipation. PAST MEDICAL HISTORY: See below PAST SURGICAL HISTORY: See below MEDICATIONS: See below ALLERGIES: See below SOCIAL HISTORY: No illicit drug use. REVIEW OF SYSTEMS: CONSTITUTIONAL: Denies fever or chills. HEENT: Denies blurred vision, vision changes, or eye pain. Denies hemoptysis CARDIOVASCULAR: Denies chest pain or pressure. RESPIRATORY: No shortness of breath. GASTROINTESTINAL: See HPI for pertinent findings HEMATOLOGIC: Denies bleeding disorders. GENITOURINARY: Denies any blood in urine or increased urinary frequency. SKIN: Denies pruitis. Denies rash. PHYSICAL EXAM: VITAL SIGNS: Reviewed GENERAL: Well-developed in no acute distress. ABDOMEN: Soft. Nondistended. Mild discomfort with palpation of the lower abdomen NEUROLOGIC: Alert and oriented. Cranial nerves II through XII grossly intact. LABORATORY DATA: WBC is 6.8 Hgb 12.4 platelets 189 Sodium 137 potassium is 4.4 creatinine 0.69 Troponins negative 2 IMAGING: ASSESSMENT: 1. Acute GI bleed with bright red blood per rectum 2. History of atrial fibrillation on Xarelto 3. History of NSAID use PLAN: -Patient scheduled for EGD and colonoscopy tomorrow with Dr. Cortes -Clear liquid diet today -Start GoLYTELY bowel prep -Nothing by mouth after midnight -Continue to monitor for any signs or symptoms of bleeding -Continue to monitor hemoglobin -Hold Xarelto -No NSAIDs Thank you for this consultation Physician Couturiere note has been reviewed by physician. Signing provider agrees with the documented findings, assessment, and plan of care. I have personally seen and examined the patient, reviewed the CAMPAIGN MANAGER /PAs history, exam and MDM and agree with the assessment and plan as written. Based on total visit time, I have performed more than 50% of the visit. Patient with episodes of bleeding at home yesterday. These were bright red in color. No history of similar events. Proceed with egd and colonscopy tomorrow. Past Medical History Past Medical History: Atrial Fibrillation, Eye Disorder, GERD/Reflux, Hyperlipidemia, Hypertension, Mitral Valve Prolapse (MVP), Osteoarthritis (OA), Sleep Apnea/CPAP/BIPAP, Thyroid Disorder Additional Past Medical History / Comment(s): See Dr Miles H&P,no cpap,DDD, STENOSIS & CURVATURE OF SPINE-"spinal fluid leak"., MIGRAINE HEADACHES, MACULAR DEGENERATION-receives kemi eye injections every 4 weeks, CHRONIC CONSTIPATION., BLADDER LEAKAGE,sciatica,covid infection Jul 2021 History of Any Multi-Drug Resistant Organisms: None Reported Past Surgical History: Back Surgery, Hysterectomy, Orthopedic Surgery, Tonsillectomy Additional Past Surgical History / Comment(s): RIGHT SHOULDER SURGERY X5 WITH ROTATOR CUFF REPAIR AND REVERSE SHOULDER WITH RODS., MULTIPLE BACK SURGERIES WITH CAGE & PLATE. , LEFT KNEE ARTHROSCOPIC, RIGHT CARPAL TUNNEL RELEASE., INJECTIONS FOR BLADDER LEAKAGE,kemi cataract,pain clinic procedures, COLONOSCOPY, EGD Past Anesthesia/Blood Transfusion Reactions: No Reported Reaction Past Psychological History: Anxiety Smoking Status: Never smoker Past Alcohol Use History: None Reported Past Drug Use History: None Reported - Past Family History Mother Family Medical History: No Reported History Brother(s) Family Medical History: Deep Vein Thrombosis (DVT), Rheumatoid Arthritis (RA) Additional Family Medical History / Comment(s): brain aneurysm BROTHER Family Medical History: Cancer Additional Family Medical History / Comment(s): 2ND BROTHER OF LUNG CANCER Medications and Allergies Home Medications Medication Instructions Recorded Confirmed Type Amitriptyline HCl [Elavil] 10 mg PO HS 06/02/14 07/02/23 History oxyCODONE-APAP 5-325MG [Percocet 1 tab PO QID PRN 06/02/14 07/02/23 History 5-325 mg] Aspirin [Adult Low Dose Aspirin EC] 81 mg PO DAILY 11/19/18 07/02/23 History Vit C/E/Zn/Coppr/Lutein/Zeaxan 1 cap PO BID 11/19/18 07/02/23 History [Preservision Areds 2 Softgel] Losartan Potassium [Cozaar] 25 mg PO BID 02/22/20 07/02/23 History Pantoprazole Sodium 20 mg PO BID 03/15/21 07/02/23 History Levothyroxine Sodium [Euthyrox] 50 mcg PO DAILY 03/28/22 07/02/23 History Rosuvastatin Calcium 5 mg PO HS 06/19/22 07/02/23 History Metoprolol Succinate [Toprol XL] 50 mg PO HS 08/17/22 07/02/23 History Rivaroxaban [Xarelto] 20 mg PO DAILY 08/17/22 07/02/23 History Metoprolol Succinate (ER) [Toprol 100 mg PO DAILY 07/02/23 07/02/23 History Xl] Propafenone [Rythmol] 225 mg PO BID 07/02/23 07/02/23 History Allergies Allergy/AdvReac Type Severity Reaction Status Date / Time Iodine and Iodide Containing Allergy Severe Rash/Hives, Verified 07/02/23 18:37 Produc Dyspnea, elevated blood pressure cobalt Allergy Unknown allergy Verified 07/02/23 18:37 testing positive nickel Allergy Unknown Allergy Verified 07/02/23 18:37 testing positive shellfish derived [Shellfish] Allergy Unknown Rash, Verified 07/02/23 18:37 dyspnea, elevated bloodpressure COVID-19 vaccine, mRNA, Allergy Rash/Hives Verified 07/02/23 18:37 [id number], regadenoson [From Lexiscan] Allergy Rash/Hives. Verified 07/02/23 18:37 codeine AdvReac Nausea & Verified 07/02/23 18:37 Vomiting morphine AdvReac VOMITING(SE Verified 07/02/23 18:37 JESI) Surgical - Exam Vital Signs Temp Pulse Resp BP Pulse Ox 98.9 F 78 20 146/80 96 07/02/23 14:02 07/02/23 14:02 07/02/23 14:02 07/02/23 14:02 07/02/23 14:02 Results - Labs 07/03/23 12:07/03/23 06:16 Abnormal Lab Results - Last 24 Hours (Table) 07/02/23 07/02/23 07/03/23 Range/Units 14:18 14:18 06:16 RBC 3.77 L (3.80-5.40) m/uL INR 1.2 H (<1.2) Chloride 108 H (98-107) mmol/L Glucose 109 H (74-99) mg/dL AST 39 H (14-36) U/L Diabetes panel 07/02/23 07/03/23 Range/Units 14:18 06:16 Sodium 142 137 (137-145) mmol/L Potassium 4.7 4.4 (3.5-5.1) mmol/L Chloride 108 H 107 (98-107) mmol/L Carbon Dioxide 23 24 (22-30) mmol/L BUN 16 14 (7-17) mg/dL Creatinine 0.73 0.69 (0.52-1.04) mg/dL Glucose 109 H 96 (74-99) mg/dL Calcium 9.7 9.3 (8.4-10.2) mg/dL AST 39 H (14-36) U/L ALT 22 (4-34) U/L Alkaline Phosphatase 88 (38-126) U/L Total Protein 6.4 (6.3-8.2) g/dL Albumin 3.7 (3.5-5.0) g/dL Calcium panel 07/02/23 07/03/23 Range/Units 14:18 06:16 Calcium 9.7 9.3 (8.4-10.2) mg/dL Albumin 3.7 (3.5-5.0) g/dL Pituitary panel 07/02/23 07/03/23 Range/Units 14:18 06:16 Sodium 142 137 (137-145) mmol/L Potassium 4.7 4.4 (3.5-5.1) mmol/L Chloride 108 H 107 (98-107) mmol/L Carbon Dioxide 23 24 (22-30) mmol/L BUN 16 14 (7-17) mg/dL Creatinine 0.73 0.69 (0.52-1.04) mg/dL Glucose 109 H 96 (74-99) mg/dL Calcium 9.7 9.3 (8.4-10.2) mg/dL Adrenal panel 07/02/23 07/03/23 Range/Units 14:18 06:16 Sodium 142 137 (137-145) mmol/L Potassium 4.7 4.4 (3.5-5.1) mmol/L Chloride 108 H 107 (98-107) mmol/L Carbon Dioxide 23 24 (22-30) mmol/L BUN 16 14 (7-17) mg/dL Creatinine 0.73 0.69 (0.52-1.04) mg/dL Glucose 109 H 96 (74-99) mg/dL Calcium 9.7 9.3 (8.4-10.2) mg/dL Total Bilirubin 0.5 (0.2-1.3) mg/dL AST 39 H (14-36) U/L ALT 22 (4-34) U/L Alkaline Phosphatase 88 (38-126) U/L Total Protein 6.4 (6.3-8.2) g/dL Albumin 3.7 (3.5-5.0) g/dL
[2023-07-03] MEDS ORDERED: LACTATED RINGERS 1,000 ML IV SCH (12:41)
[2023-07-03] MEDS ORDERED: LIDOCAINE 1% (10MG/ML) FOR IV START INTRADERMA PRN (12:41)
[2023-07-03 12:44] LABS: HCT 37.3 % (34.0-46.0); HGB 12.2 gm/dL (11.4-16.0); MCH 32.6 pg (25.0-35.0); MCHC 32.8 g/dL (31.0-37.0); MCV 99.4 fL (80.0-100.0); Mean Platelet Volume 9.2; Platelet Count 173 k/uL (150-450); RBC 3.75 m/uL (3.80-5.40); RDW 13.3 % (11.5-15.5); WBC 7.4 k/uL (3.8-10.6)
--- NOTE | 2023-07-03 14:02 | P.CONS ---
History of Present Illness - Reason for Consult Consult date: 07/03/23 [facility] Requesting physician: Mike Shine - Chief Complaint Rectal bleeding - History of Present Illness This is a pleasant 73-year-old female who presented to the emergency department yesterday with complaints of bright red blood per rectum with clots that started yesterday morning. Patient states she had multiple episodes of rectal bleeding with clots that started yesterday morning and ended yesterday evening when she came up to the third floor. States she did have lower abdominal cramping and some pain associated with the bleeding. Denies previous history of GI bleed. She does have a history of atrial fibrillation and takes Xarelto, with her last dose on 07/02/23. Last colonoscopy was done in 2019 which was normal. She had previous EGD done in 2020 as well which was reported as normal appearing esophagus, both done by Dr. Chester. Hemoglobin on admission 13.3 with a repeat today of 12.2. Review of Systems REVIEW OF SYSTEMS: CARDIOPULMONARY: No chest pain or shortness of breath. Gastrointestinal: Lower abdominal cramping. No nausea or vomiting. No hematemesis, coffee-ground emesis. Bright red blood per rectum with clots. GENITOURINARY: No dysuria or hematuria. MUSCULOSKELETAL: Reports normal range of motion. SKIN: No rashes. No jaundice. ENDOCRINE: No chills, fevers. No excessive weight gain or loss. No polydipsia or polyuria. PSYCHIATRIC: Unremarkable. NEUROLOGY: No change in mental status. Denies dizziness, headache. ENT: Vision unremarkable. CONSTITUTIONAL: No recent weight loss. No fever, chills, night sweats. Past Medical History Past Medical History: Atrial Fibrillation, Eye Disorder, GERD/Reflux, Hyperlipidemia, Hypertension, Mitral Valve Prolapse (MVP), Osteoarthritis (OA), Sleep Apnea/CPAP/BIPAP, Thyroid Disorder Additional Past Medical History / Comment(s): See Dr Miles H&P,no cpap,DDD, STENOSIS & CURVATURE OF SPINE-"spinal fluid leak"., MIGRAINE HEADACHES, MACULAR DEGENERATION-receives kemi eye injections every 4 weeks, CHRONIC CONSTIPATION., BLADDER LEAKAGE,sciatica,covid infection Jul 2021 History of Any Multi-Drug Resistant Organisms: None Reported Past Surgical History: Back Surgery, Hysterectomy, Orthopedic Surgery, Tonsillectomy Additional Past Surgical History / Comment(s): RIGHT SHOULDER SURGERY X5 WITH ROTATOR CUFF REPAIR AND REVERSE SHOULDER WITH RODS., MULTIPLE BACK SURGERIES WITH CAGE & PLATE. , LEFT KNEE ARTHROSCOPIC, RIGHT CARPAL TUNNEL RELEASE., INJECTIONS FOR BLADDER LEAKAGE,kemi cataract,pain clinic procedures, COLONOSCOPY, EGD Past Anesthesia/Blood Transfusion Reactions: No Reported Reaction Past Psychological History: Anxiety Smoking Status: Never smoker Past Alcohol Use History: None Reported Past Drug Use History: None Reported - Past Family History Mother Family Medical History: No Reported History Brother(s) Family Medical History: Deep Vein Thrombosis (DVT), Rheumatoid Arthritis (RA) Additional Family Medical History / Comment(s): brain aneurysm BROTHER Family Medical History: Cancer Additional Family Medical History / Comment(s): 2ND BROTHER OF LUNG CANCER Medications and Allergies Home Medications Medication Instructions Recorded Confirmed Type Amitriptyline HCl [Elavil] 10 mg PO HS 06/02/14 07/02/23 History oxyCODONE-APAP 5-325MG [Percocet 1 tab PO QID PRN 06/02/14 07/02/23 History 5-325 mg] Aspirin [Adult Low Dose Aspirin EC] 81 mg PO DAILY 11/19/18 07/02/23 History Vit C/E/Zn/Coppr/Lutein/Zeaxan 1 cap PO BID 11/19/18 07/02/23 History [Preservision Areds 2 Softgel] Losartan Potassium [Cozaar] 25 mg PO BID 02/22/20 07/02/23 History Pantoprazole Sodium 20 mg PO BID 03/15/21 07/02/23 History Levothyroxine Sodium [Euthyrox] 50 mcg PO DAILY 03/28/22 07/02/23 History Rosuvastatin Calcium 5 mg PO HS 06/19/22 07/02/23 History Metoprolol Succinate [Toprol XL] 50 mg PO HS 08/17/22 07/02/23 History Rivaroxaban [Xarelto] 20 mg PO DAILY 08/17/22 07/02/23 History Metoprolol Succinate (ER) [Toprol 100 mg PO DAILY 07/02/23 07/02/23 History Xl] Propafenone [Rythmol] 225 mg PO BID 07/02/23 07/02/23 History Allergies Allergy/AdvReac Type Severity Reaction Status Date / Time Iodine and Iodide Containing Allergy Severe Rash/Hives, Verified 07/02/23 18:37 Produc Dyspnea, elevated blood pressure cobalt Allergy Unknown allergy Verified 07/02/23 18:37 testing positive nickel Allergy Unknown Allergy Verified 07/02/23 18:37 testing positive shellfish derived [Shellfish] Allergy Unknown Rash, Verified 07/02/23 18:37 dyspnea, elevated bloodpressure COVID-19 vaccine, mRNA, Allergy Rash/Hives Verified 07/02/23 18:37 [id number], regadenoson [From Lexiscan] Allergy Rash/Hives. Verified 07/02/23 18:37 codeine AdvReac Nausea & Verified 07/02/23 18:37 Vomiting morphine AdvReac VOMITING(SE Verified 07/02/23 18:37 JESI) Physical Exam Vitals: Vital Signs Temp Pulse Pulse Resp BP BP Pulse Ox 07/03/23 04:00 97.8 F 72 18 129/84 98 07/03/23 00:00 98.0 F 73 18 117/62 98 07/02/23 21:30 98.4 F 72 18 121/67 95 07/02/23 20:02 65 18 156/84 96 07/02/23 18:00 63 18 138/78 98 07/02/23 16:00 63 18 161/75 97 07/02/23 15:10 69 18 168/77 98 07/02/23 14:02 98.9 F 78 20 146/80 96 Intake and Output 07/02/23 07/03/23 07/03/23 22:59 06:59 14:59 Intake Total 240 Balance 240 Intake: Oral 240 Other: Voiding Method Bedside Commode Bedside Commode # Voids 1 Weight 79.379 kg General appearance: The patient is alert, oriented, appears in no acute distress. HET: Head is normocephalic and atraumatic. Conjunctiva pink. Sclera anicteric. Neck: Supple without lymphadenopathy. Trachea midline. Heart: Regular. Lungs: Equal expansion, normal respiratory effort. Abdomen: Soft, left lower quadrant tenderness, nondistended with bowel sounds. No guarding or rigidity. Skin: No rashes. No jaundice. Extremities: Normal skin color and turgor. No pedal edema. Neurological: No focal deficits. Alert and oriented x3. Results CBC & Chem 7: 07/03/23 12:07/03/23 06:16 Labs: Abnormal Lab Results - Last 24 Hours (Table) 07/02/23 07/02/23 07/03/23 Range/Units 14:18 14:18 06:16 RBC 3.77 L (3.80-5.40) m/uL INR 1.2 H (<1.2) Chloride 108 H (98-107) mmol/L Glucose 109 H (74-99) mg/dL AST 39 H (14-36) U/L Assessment and Plan (1) GI bleed Narrative/Plan: 73-year-old who came in for bright red blood per rectum with previous EGD and colonoscopy done by Dr. Chester in 2020 and 2019 respectively both with normal f indings. Bright red blood per rectum several episodes yesterday with clots now completely resolved. Abdominal cramping noted with the bleeding likely were dealing with diverticular bleed. Stable hemoglobin at 12.4. Recommendation for colonoscopy tomorrow. Current Visit: Yes Status: Acute Code(s): K92.2 - GASTROINTESTINAL HEMORRHAGE, UNSPECIFIED SNOMED Code(s): 33181369 (2) Atrial fibrillation Current Visit: Yes Status: Acute Code(s): I48.91 - UNSPECIFIED ATRIAL FIBRILLATION SNOMED Code(s): 38881037 Plan: 1. Continue symptomatic and supportive care 2. Daily CBC, transfuse for hemoglobin less than 7 3. Patient was initially scheduled for colonoscopy with gastroenterology tomorrow, however is requesting to see Dr. Cortes Thank you for this consultation we will sign off at this time. Dr. Jyothi Chester I agree with the dictator's note, documented as a scribe by Nelly Page.
[2023-07-03] MEDS: METOPROLOL SUCCINATE (ER) 50 MG TAB.ER.24H PO SCH (21:53)
[2023-07-03] MEDS: ATORVASTATIN 10 MG TAB PO SCH (21:53)
[2023-07-03] MEDS: AMITRIPTYLINE HCL 10 MG TAB PO SCH (22:18)
[2023-07-04] MEDS: LEVOTHYROXINE 50 MCG TAB PO SCH (06:52)
[2023-07-04 07:27] VITALS: TEMP 97.8
[2023-07-04] MEDS: LOSARTAN 25 MG TAB PO SCH (08:28)
[2023-07-04] MEDS: METOPROLOL SUCCINATE (ER) 100 MG TAB.ER.24H PO SCH (08:28)
[2023-07-04] MEDS: PANTOPRAZOLE 40 MG/10 ML VIAL IVP SCH (08:28)
[2023-07-04] MEDS: PROPAFENONE 225 MG TAB PO SCH (08:29)
[2023-07-04] MEDS: oxyCODONE-APAP 5-325MG 1 EACH TAB PO PRN (08:33)
[2023-07-04 08:38] LABS: HGB 11.8 gm/dL (11.4-16.0); MCH 32.5 pg (25.0-35.0); MCHC 32.9 g/dL (31.0-37.0); MCV 98.9 fL (80.0-100.0); Mean Platelet Volume 8.2; Platelet Count 174 k/uL (150-450); RBC 3.65 m/uL (3.80-5.40); RDW 13.3 % (11.5-15.5); WBC 5.2 k/uL (3.8-10.6)
[2023-07-04 08:49] VITALS: RESP 16
--- NOTE | 2023-07-04 12:53 | P.PN ---
Subjective This is a pleasant 73 years old female with past medical history of multiple medical problems including history of back pain and status post back surgeries, she has 5. Rotator cuff surgeries on her right shoulder and she is on multiple pain medication, she takes oxycodone 5/325 mg also she is taking Tylenol and Advil as needed and she's been taking it for the last few days. Yesterday she started having some blood in her stool, as bright red blood and blood clots. She had no bowel movement yesterday which is not unusual for her as she is taking a lot of pain medication, but bowel movement one day earlier was brownish reddish in color. She is complaining of from mild lower abdominal abdominal pain and tenderness, felt like sharp nonradiating with no precipitating or relieving factors. She's been seen by Dr. Han planned to undergo colonoscopy tomorrow. 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 She is also been complaining of from chest pain on and off since August 2022 when she had ablation procedure with Dr. Zavala, her chest pain is mild, on the left side nonradiating felt like sharp, on and off, as above. She said that she has history of valvular heart disease with 80% blockage but she is not sure which are 12. She denies smoking alcohol or illicit drugs. Currently she denies dysuria or urgency. No dyspnea or coughing. No headache dizziness weakness or numbness. Her vitals are stable, blood pressure is 129/80. CBC is unremarkable with hemoglobin within the normal limits of 13.3 and 12.7. INR, BMP, liver enzymes and troponin are all unremarkable. No EKG in the standard patient received IV Protonix twice daily and admitted to the hospital. 07/04/2023 Patient awake more calm and relaxed today. Her chest pain has resolved. No more GI bleed as per patient Chest her complains from mild lower abdominal tenderness, abdomen soft with no rebound tenderness. Hemoglobin stable at 11.8. Vitals stable. Plan for her to undergo endoscopy with possible colonoscopy and/or EGD per surgery team today Her xarelto and aspirin remain on hold Objective - Vital Signs Vital signs: Vital Signs Temp 97.8 F 07/04/23 04:00 Pulse 68 07/04/23 08:00 Resp 16 12/21/23 08:00 BP 142/97 07/04/23 08:00 Pulse Ox 99 07/04/23 08:00 FiO2 Intake & Output 07/03/23 07/04/23 07/04/23 18:59 06:59 18:59 Intake Total 1560 Balance 1560 Intake: Oral 1560 Other: Voiding Method Bedside Commode Bedside Commode Bedside Commode # Voids 4 # Bowel Movements 1 1 - Exam GENERAL: The patient is alert and oriented x3, not in any acute distress. Well developed, well nourished. HEENT: Pupils are round and equally reacting to light. EOMI. No scleral icterus. No conjunctival pallor. Normocephalic, atraumatic. No pharyngeal erythema. No thyromegaly. CARDIOVASCULAR: S1 and S2 present. No murmurs, rubs, or gallops. PULMONARY: Chest is clear to auscultation, no wheezing , no crackles. ABDOMEN: Soft, nontender, nondistended, normoactive bowel sounds. No palpable organomegaly. MUSCULOSKELETAL: No joint swelling or deformity. EXTREMITIES: No cyanosis, clubbing, or pedal edema. NEUROLOGICAL: Gross neurological examination did not reveal any focal deficits. SKIN: No rashes. no petechiae. - Labs CBC & Chem 7: 07/04/23 08:03 07/03/23 06:16 Labs: Abnormal Lab Results - Last 24 Hours (Table) 07/04/23 Range/Units 08:03 RBC 3.65 L (3.80-5.40) m/uL Assessment and Plan Assessment: Acute lower GI bleed associated with mild lower abdominal tenderness Ongoing chest pain on and off for about one year, rule out cardiac causes Ongoing chronic back pain, uncontrolled on several pain medication History of shoulder disease status post right rotator cuff surgery 5 Constipation Anxiety Chronic atrial fibrillation History of GERD Hypertension Hyperlipidemia Hypothyroidism history of sleep apnea. Plan: Patient hemoglobin is stable, we will keep monitoring hemoglobin GI surgery team upon patient request are planning for colonoscopy on 07/04 Aspirin and xarelto are on hold cardiology consult Continue with pain medication Xanax for anxiety Patient is currently getting bowel preparation which help her constipation. Labs and medication were reviewed.. Continue same treatment. Continue with symptomatic treatment. Resume home medication. Monitor labs and vitals. DVT and GI prophylaxis. Further recommendations as per clinical course of the patient DVT prophylaxis: no Subcutaneous heparin, S CD GI Prophylaxis: Ppi Prognosis is guarded
[2023-07-04 13:02] VITALS: BP 110/63; PULSE 80
--- NOTE | 2023-07-04 13:20 | PN ---
PROGRESS NOTE SUBJECTIVE: Ms. Byers came in with what seems to be some rectal bleeding. She was on Xarelto for atrial fibrillation paroxysmal. She has no CAD by catheterization in 2020. She is doing well this morning. Her troponins are negative. EKG is unremarkable. I am recommending that she can be discharged following endoscopy and after some guidance regarding resumption of Xarelto usage. OBJECTIVE: VITALS: Stable. HEART: S1, S2 heard normally, short systolic murmur. LUNGS: Clear. ABDOMEN: Unchanged. EXTREMITIES: Lower extremity exam unchanged. Hemoglobin is down to 11.7. MMODL / IJN: [id number] /
[2023-07-04] MEDS ORDERED: LIDOCAINE 1% INJ 10MG/ML (20 ML MDV) ONE (13:24)
[2023-07-04] MEDS ORDERED: PROPOFOL 10 MG/ML 20 ML VIAL IV ONE (13:24)
[2023-07-04] MEDS ORDERED: SODIUM CHLORIDE 0.9% 500 ML 500 ML IV ONE ×2 (13:27)
--- NOTE | 2023-07-04 13:55 | P.PCN ---
Date of Procedure: 07/04/23 Procedure(s) Performed: PREOPERATIVE DIAGNOSIS: Acute GI bleed POSTOPERATIVE DIAGNOSIS: Minimal gastritis, diverticulosis, no active bleeding PROCEDURE: 1. EGD with biopsy 2. Colonoscopy ANESTHESIA: MAC SURGEON: Compa Cortes M.D. SPECIMENS: Antrum ENDOSCOPIC PROCEDURE: The patient was on the endoscopy table in the left decubitus position. The Olympus gastroscope was inserted into the oropharynx and passed under direct visualization to the region of the third portion of the duodenum. From that point the scope was slowly withdrawn inspecting all surfaces carefully. There were no neoplastic inflammatory or polypoid lesions throughout the duodenum. The pylorus was widely patent. The stomach was carefully inspected. There was minimal gastritis present. A biopsy of the antrum took place to rule out H. pylori. Retroflexion revealed a normal hiatus. The esophagus was then carefully examined. There were no neoplastic inflammatory or polypoid lesions throughout the visualized esophagus. The patient was kept on the endoscopy table in the left decubitus position. The Olympus colonoscope was inserted into the anus and passed under direct visualization to the base of the cecum. The appendiceal orifice was visualized. From that point the scope was slowly withdrawn inspecting all surfaces carefully. There were no neoplastic inflammatory or polypoid lesions throughout the cecum, ascending, transverse, descending, sigmoid and rectum. There was mild scattered diverticulosis noted mostly in the sigmoid colon. There was no blood within the upper or lower intestine. Digital rectal examination was normal. The patient was taken to the recovery room in stable condition per an esthesia guidelines. RECOMMENDATIONS: Source of bleeding not seen. Most likely source remains diverticulosis. Bleeding would be exacerbated by anticoagulation. Patient states she had a cardiac ablation and is not sure if she still has atrial fibrillation. Recommend holding anticoagulation for 48 hours. She states she will discuss with her label maker whether she needs to stay on anticoagulation at this point. Resume regular diet. May discharge her tolerates.
== END 2023-07-04 16:36 | disposition home or self-care (01) ==
LOC: EC 13:48 → 3SCARD 18:29
PROVIDERS: ADMIT Hospitalist; ATTEND Hospitalist
DX: K62.5 Hemorrhage of anus and rectum (principal); I48.20 Chronic atrial fibrillation, unspecified; R07.89 Other chest pain; K57.90 Diverticulosis of intestine, part unspecified, without perforation or abscess without bleeding; K29.70 Gastritis, unspecified, without bleeding; I10 Essential (primary) hypertension; M19.90 Unspecified osteoarthritis, unspecified site; E78.5 Hyperlipidemia, unspecified; K21.9 Gastro-esophageal reflux disease without esophagitis; G43.909 Migraine, unspecified, not intractable, without status migrainosus; H35.30 Unspecified macular degeneration; K59.09 Other constipation; M43.9 Deforming dorsopathy, unspecified; I08.0 Rheumatic disorders of both mitral and aortic valves; E66.9 Obesity, unspecified; Z68.29 Body mass index [BMI] 29.0-29.9, adult; G89.29 Other chronic pain; M54.9 Dorsalgia, unspecified; M54.30 Sciatica, unspecified side; F41.9 Anxiety disorder, unspecified; Z79.82 Long term (current) use of aspirin; Z79.890 Hormone replacement therapy; Z79.01 Long term (current) use of anticoagulants; Z79.899 Other long term (current) drug therapy; Z91.041 Radiographic dye allergy status; Z88.7 Allergy status to serum and vaccine; Z91.013 Allergy to seafood; Z88.5 Allergy status to narcotic agent; Z91.048 Other nonmedicinal substance allergy status; Z86.16 Personal history of COVID-19; Z90.710 Acquired absence of both cervix and uterus; Z98.42 Cataract extraction status, left eye; Z98.41 Cataract extraction status, right eye; Z98.890 Other specified postprocedural states; Z82.61 Family history of arthritis; Z82.49 Family history of ischemic heart disease and other diseases of the circulatory system; Z80.1 Family history of malignant neoplasm of trachea, bronchus and lung
CPT/HCPCS: 96376 ×2; 96374; 96375; 99291; 36415; 88305; 80053; 80048; 84484 ×2; 85025 ×2; 85027 ×2; 85610; 85730; 45378; 43239; G0378 ×3; J2001; J2704; C9113 ×3; J1170

== ENCOUNTER 2024-01-09 07:27 | Day surgery (SDC) | payer MEDICARE ==
[2024-01-07 15:46] VITALS: BMI 27.1
[2024-01-09] MEDS: SODIUM CHLORIDE 0.9% 500 ML 500 ML IV ONE (07:36)
[2024-01-09 07:54] VITALS: TEMP 97.9
[2024-01-09] MEDS ORDERED: fentaNYL (PF) 50 MCG/ML 2 ML AMP ONE (09:08)
[2024-01-09] MEDS: BENZOCAINE SPRAY 1 CAN TOPICAL ONE (09:31)
[2024-01-09] MEDS: fentaNYL (PF) 50 MCG/ML 2 ML AMP IVP ONE ×2 (09:41→09:49)
[2024-01-09] MEDS: MIDAZOLAM 2 MG/2 ML VIAL IVP ONE ×2 (09:41→09:44)
[2024-01-09 10:01] VITALS: RESP 16
[2024-01-09 15:14] VITALS: BP 137/65; PULSE 67
--- NOTE | 2024-01-10 18:25 | P.TEE ---
Indications for Procedure(s): Post Watchman JENN Date of Procedure: 01/09/24 Description of Procedure(s): Procedure performed: 1. Transesophageal Echocardiogram with color flow doppler, pulsed wave doppler and continuous wave doppler 2. Moderate conscious sedation. Sedation time 15 mins. 3. Bubble Study Indications: [] Consent: I have discussed the risks, benefits and alternative therapies for the above-mentioned procedure. The patient has indicated understanding and acceptance of the risks of the procedure. Signed consent was obtained and was placed in the paper chart. Procedural Steps: Timeout was performed in usual fashion. Patient's heart rate, blood pressure, oxygen saturation and ECG were monitored. Benzocaine was sprayed liberally in the back of the throat. Bite block was placed between the jaw. 2 mg of Versed and 75 mcg of Fentanyl were administered intravenously. After achieving appropriate moderate conscious sedation, JENN probe was advanced without difficulty and without any immediate complications to the esophagus. JENN study was performed with color flow doppler, pulsed wave doppler and continuous wave doppler. The probe was then removed. Patient tolerated the procedure well. Patient was transferred to the post procedure area in stable and satisfactory condition. Throughout the procedure patient's heart rate, blood pressure, oxygen saturation and ECG were monitored. Total sedation time [20] mins. Complications: none FINDINGS Left Atrium: Severe left atrial dilation. No evidence of mass or thrombus seen. Normal forward flow noticed in pulmonary vein with normal S/D ratio. Left Atrial Appendage: Watchman Flex device noticed a left atrial appendage with no significant residual flow in left atrial appendage seen. There is no evidence of device related thrombus. Inter atrial septum: Intact inter-atrial septum with no evidence of atrial septal defect or patent foramen ovale by Doppler. Left Ventricle: Normal global LV size and systolic function Right Atrium: Normal overall RA size Right Ventricle: Normal global RV size and systolic function Aortic Valve: Trileaflet, mild leaflet thickening. Mild aortic regurgitation. No evidence of stenosis by color Doppler. Mitral Valve: Mild leaflet thickening. Pisa radius 0.4 cm, Aliasing velocity 39 cm/s, MR V-max 566 cm/s, MR VTI 2.9 cm, ERO 0.1 cm, regurgitant volume 22 mL. Moderate functional mitral regurgitation. Pulmonic Valve: Appears normal with no significant regurg or stenosis Tricuspid Valve: Moderate TR. RVSP estimated around 40 mmHg Ascending aorta, Aortic root and Aortic arch: Size ascending aorta and aortic root. Ascending aorta measured 3.4 cm. Descending aorta: Mild intimal thickening. CONCLUSION: Well-positioned watchman flex device with complete exclusion of left atrial appendage. No evidence of device related thrombus Moderate functional mitral regurgitation Mild aortic regurgitation Severe left atrial dilatation Thaddeus Gutierrez MD, RPVI, FACC Thank you for allowing [facility] to participate in this patient's care. Feel free to reach out in case of any followup questions.
== END 2024-01-09 11:37 | disposition home or self-care (01) ==
LOC: CATHCVL 07:27
PROVIDERS: ATTEND Student in an Organized Health Care Education/Training Program
DX: I08.0 Rheumatic disorders of both mitral and aortic valves (principal); I48.0 Paroxysmal atrial fibrillation; I10 Essential (primary) hypertension; I49.3 Ventricular premature depolarization; Z79.82 Long term (current) use of aspirin; Z79.02 Long term (current) use of antithrombotics/antiplatelets; Z79.899 Other long term (current) drug therapy; Z88.5 Allergy status to narcotic agent; Z88.8 Allergy status to other drugs, medicaments and biological substances; Z88.6 Allergy status to analgesic agent
CPT/HCPCS: 93312; 93320; 93325; J2250; J3010

== ENCOUNTER → 2024-04-21 | Outpatient (CLI) | payer MEDICARE ==
--- NOTE | 2024-04-24 12:04 | MR ---
EXAMINATION TYPE: MR tspine/lspine wo con DATE OF EXAM: 04/21/2024 COMPARISON: Thoracic spine 12/21/2016 and lumbar spine 06/13/2022 HISTORY: 73-year-old female Mid/low back pain, hx of Lumbar surgery. M54.6 PAIN IN TS M54.50 LOW FRED K PAIN TECHNIQUE: Multiplanar, multisequence imaging of the thoracic and lumbar spine is performed without I V contrast. FINDINGS: THORACIC SPINE: There is essentially a midthoracic kyphosis. Mild multilevel degenerative disc disease characterized by desiccated and bulging disks throughout. Scattered small posterior disc protrusions are present. No large focal disc herniation or significant spinal canal stenosis. Heterogeneous marrow signal in part relating to red marrow hyperplasia. A few scattered fatty matrix hemangiomas are also demonstrated, for example, involving T7 and T12 vertebrae. Normal course, caliber, and signal intensity of the thoracic spinal cord. On the right, there is mild neuroforaminal stenosis at T10-T11. On the left, there is a small perineural cyst at T3-T4. No prevertebral or paravertebral soft tissue abnormality seen. LUMBAR SPINE: Status post right-sided L5-S1 posterior and interbody lumbar fusion. There is L4 and L5 right-sided l aminectomy defect. Continued fluid collection at the laminectomy bed measuring 7.2 cm craniocaudal by 4.0 cm AP by 2.4 cm wide. Hemosiderin rim. Findings suggest chronic postoperative seroma or hematoma . There is moderate degenerative disc disease above the fusion at L3-L4 and L4-L5 with desiccated, narr owed, and bulging discs. Mild to moderate degenerative disc disease L2-L3 and mild at L1-L2. Bulging disks impress on the ventral thecal sac but do not cause any significant spinal canal stenosi s. Some ligamentum flavum thickening is present particularly along the left in the upper and mid lumbar spine. Additional facet arthropathy scattered throughout. On the right, changes result in mild neuroforaminal narrowing at L3-L4 and L4-L5. Possibly mild to mo derate at L5-S1. On the left, changes result in moderate to severe neuroforaminal stenosis at L5-S1 and mild at L2-L3, L3-L4, L4-L5. Conus medullaris is normal. No suspicious bone marrow replacement. Vertebral body heights are preserved and alignment is maintained. Parapelvic cyst left kidney. COMBINED IMPRESSION: THORACIC SPINE: 1. Mild multilevel degenerative disc disease. Small posterior disc protrusions are present. No large focal disc herniation or significant spinal canal stenosis. 2. Slightly accentuated midthoracic kyphosis. No vertebral compression collapse or malalignment. LUMBAR SPINE: 3. Status post right-sided L5-S1 posterior lumbar fusion. Additional interbody fusion at this level. L4 and L5 right-sided laminectomy defects also redemonstrated with persistent fluid collection at the laminectomy bed measuring 7.2 x 4.0 x 2.4 cm. Either chronic postoperative seroma or hematoma. 4. And mild to moderate degenerative disc disease throughout the remainder of the lumbar spine. There is mild posterior disc bulging. No large focal disc herniation or significant spinal canal stenosis. 5. Scattered facet arthropathy and residual hyperostotic changes. This results in moderate to severe left neuroforaminal stenosis at L5-S1. Mild to moderate on the right at L5-S1. Additional variable mi ld neuroforaminal narrowing as outlined above. [facility], , 04/24/2024 12:02 PM
== END | disposition home or self-care (01) ==
LOC: RADMRIMAIN 08:08
PROVIDERS: ATTEND Family Medicine
DX: M47.816 Spondylosis without myelopathy or radiculopathy, lumbar region (principal); M47.814 Spondylosis without myelopathy or radiculopathy, thoracic region; M51.369 Other intervertebral disc degeneration, lumbar region without mention of lumbar back pain or lower extremity pain; M43.26 Fusion of spine, lumbar region; N28.1 Cyst of kidney, acquired; M99.73 Connective tissue and disc stenosis of intervertebral foramina of lumbar region; G96.191 Perineural cyst
CPT/HCPCS: 72146; 72148

== ENCOUNTER → 2024-05-14 | Outpatient (CLI) | payer MEDICARE ==
--- NOTE | 2024-05-15 17:58 | MM ---
Reason for Exam: Screening (asymptomatic). Last mammogram was performed 2 year(s) and 11 month(s) ago. Patient History: Menarche at age 10. First Full-Term at age 18. Hysterectomy at age 28. Postmenopausal. Estrogen, starting at age 45 for 17 years. Hormonal Contraceptives for 10 months starting at age 17. Core Biopsy on the Right side. Cyst Aspiration on the Right side. Cyst Aspiration on the Right side. Cyst Aspiration on the Right side. Cyst Aspiration on the Left side. Excisional Biopsy on the Right side. Excisional Biopsy on the Right side. 11/25/2006, Benign Core Biopsy on the left side. 11/25/2006, Benign Cyst Aspiration on the left side. 11/25/2006, Benign Core Biopsy on the left side. 04/26/2000, Ultrasound-Guided Cyst Aspiration on the Right side. 04/26/2000, Benign Ultrasound-Guided Core Biopsy on the right side. 03/25/1998, Benign Excisional Biopsy on the right side. 03/25/1998, Benign Cyst Aspiration on the right side. Maternal aunt had breast cancer, age 84. Risk Values: Taryn 5 year model risk: 2.4%. NCI Lifetime model risk: 5.1%. Prior Study Comparison: 09/04/2017 Bilateral Diagnostic Mammogram, [facility]. 02/11/2020 Bilateral Screening Mammogram, [facility]. 06/07/2021 Bilateral Diagnostic Mammogram, [facility]. Tissue Density: The breasts are heterogeneously dense, which may obscure small masses. Findings: Analyzed By CAD. Lateral subareolar asymmetric density right cc view is unchanged. Vague asymmetric density central outer left cc view posterior depth is unchanged. Other areas of asymmetric density are similar as well. Benign intramammary lymph node redemonstrated posterior upper outer quadrant left breast. 2 microclip left breast from prior biopsies. Loop recorder device now noted medial exterior left side. There is no suspicious group of microcalcifications or new suspicious mass in either breast. Overall Assessment: Benign, BI-RAD 2 Management: Screening Mammogram of both breasts in 1 year. . Patient should continue monthly self-breast exams. A clinical breast exam by your physician is recommended on an annual basis. This exam should not preclude additional follow-up of suspicious palpable abnormalities. Note on Taryn scores and lifetime risk: 1. A Taryn score greater than 3% is considered moderate risk. If this is the case, consider specialist referral to assess eligibility for a risk reducing agent. 2. If overall lifetime risk for the development of breast cancer is 20% or higher, the patient may qualify for future screening with alternating mammogram and breast MRI. [facility], , 05/15/2024 5:56 PM. Electronically signed and approved by: Meghan Banks M.D. Radiologist
== END | disposition home or self-care (01) ==
LOC: RADMAMWWP 10:26
PROVIDERS: ATTEND Family Medicine
DX: Z12.31 Encounter for screening mammogram for malignant neoplasm of breast (principal); R92.333 Mammographic heterogeneous density, bilateral breasts; Z78.0 Asymptomatic menopausal state; Z80.3 Family history of malignant neoplasm of breast
CPT/HCPCS: 77063; 77067